=== PATIENT | female | born 1985 | race Caucasian/White ===

== ENCOUNTER → 2017-04-16 10:34 | Outpatient (CLI) | payer MEDICAID, SELFPAY ==
[2017-04-16 09:53] VITALS: BP 139/94; BMI 40.7
[2017-04-16 12:37] LABS: BUN 15 mg/dL (7-18); Creatinine, Serum 0.81 mg/dL (0.55-1.02); Glucose 86 mg/dL (70-110)
[2017-04-16 12:38] LABS: Anion Gap 10 (5-15); BUN/Creat Ratio 18.4 RATIO (10-20); Calcium,Total 9.4 mg/dL (8.5-10.1); Chloride 98 mmol/L (98-107); EST Glomerular Filtration Rate 86 mL/min (>60); Est Glom Filt Rate - Afr Amer 104 mL/min (>60); Potassium 3.7 mmol/L (3.5-5.1); Sodium Level 136 mmol/L (136-145)
== END ==
PROVIDERS: Family Provider Internal Medicine; PCP Internal Medicine; Visit Provider Internal Medicine
DX: I10 Essential (primary) hypertension (principal)
CPT/HCPCS: 36415; 80048

== ENCOUNTER → 2017-10-28 14:50 | Outpatient (CLI) | payer MEDICAID, SELFPAY ==
[2017-10-28 15:38] LABS: Absolute Lymphocyte Count 2.42 X10^3/ul (0.83-4.51); Absolute Neutrophil Count 7.4 X10^3/uL (2.0-7.7); Basophil# 0.02 X10^3/uL; Basophil% 0.2 % (0-1); Eosinophil# 0.06 X10^3/uL; Eosinophils% 0.6 % (0-5); Hematocrit 41.7 % (37-47); Hemoglobin 13.5 g/dl (12.0-15.0); Lymphocyte # 2.42 X10^3/ul (4.0); Lymphocyte % 23.6 % (19-41); Mean Corp Hgb Conc 32.4 g/gl (32-36); Mean Corpuscular Hgb 27.7 pg (27.0-32.0); Mean Corpuscular Volume 85.6 fL (81-99); Mean Platelet Vol. 9.7 fl (6.2-12.0); Monocyte# 0.39 X10^3/uL; Monocyte% 3.8 % (0-10); Neutrophil # 7.36 X10^3/uL (2.7-7.7); Neutrophil % 71.7 % (47-70); Platelet Count 334 K/mm3 (150-450); RBC Distribution Width CV 13.8 % (11.6-14.6); RBC Distribution Width SD 43.2 fl (35.1-43.9); Red Blood Count 4.87 M/mm3 (4.2-5.4); White Blood Count 10.3 K/mm3 (4.4-11.0)
[2017-10-28 15:47] LABS: POSITIVE COUNT NO; POSITIVE DIFFERENTIAL NO; POSITIVE MORPHOLOGY NO
[2017-10-28 16:07] LABS: Anion Gap 9 (5-15); BUN 17 mg/dL (7-18); BUN/Creat Ratio 18.9 RATIO (10-20); Calcium,Total 9.1 mg/dL (8.5-10.1); Chloride 107 mmol/L (98-107); EST Glomerular Filtration Rate 76 mL/min (>60); Est Glom Filt Rate - Afr Amer 92 mL/min (>60); Glucose 87 mg/dL (74-106); Magnesium 2.1 mg/dL (1.6-2.6); Potassium 3.9 mmol/L (3.5-5.1); Sodium Level 141 mmol/L (136-145); T4 Free Direct 1.17 ng/dL (0.76-1.46); Thyroid Stim Hormone (TSH) 1.63 uIU/mL (0.358-3.74)
[2017-10-29 09:30] LABS: Pregnancy, Serum, hCG Quali. NEGATIVE Negative (0-9 Nonpreg)
== END ==
PROVIDERS: Family Provider Internal Medicine; PCP Internal Medicine; Visit Provider Internal Medicine
DX: R68.89 Other general symptoms and signs (principal); N94.6 Dysmenorrhea, unspecified
CPT/HCPCS: 36415; 80048; 83735; 84439; 84443; 84703; 85025

== ENCOUNTER → 2017-12-09 07:59 | Outpatient (CLI) | payer MEDICAID, SELFPAY ==
--- NOTE | 2017-12-09 08:02 | US_ITS ---
STUDY: ULTRASOUND OF THE FEMALE PELVIS - COMPLETE REASON FOR EXAM: Female, 32 years old. Bilateral pelvic pain left greater than right. LMP: December 07, 2017. TECHNIQUE: Transabdominal and Transvaginal TECHNICAL QUALITY: Adequate. COMPARISON: None. FINDINGS: The uterus is anteverted and is in a midline position. The uterus measures 9.0 cm x 5.4 cm x 5.0 cm. There are Nabothian cysts of the cervix. The endometrium measures 5.0 mm in thickness, and is hyperechoic. There is no demonstrated endometrial mass. There is no demonstrated myometrial mass. I.U.D. - The patient does not have an I.U.D. The right ovary is visualized. The right ovary measures 3.2 cm x 3.8 cm x 3.0 cm. There is no right ovarian cyst or ovarian mass. There is no visualized right adnexal mass or complex lesion. There is normal arterial and normal venous vascularity. The left ovary is visualized. The left ovary measures 3.0 cm x 1.8 cm x 1.7 cm. There is no left ovarian cyst or ovarian mass. There is no visualized left adnexal mass or complex lesion. There is normal arterial and normal venous vascularity. There is no fluid in the cul-de-sac. The pre void volume of the bladder was 22 ml. Polycystic ovary disease: No. US/Pelvic (Non ) IMPRESSION: Normal female pelvis. Small nabothian cysts. Electronically Signed: Francisco Javier High MD at 9:45 EDT Tel [phone], Service support ,
--- NOTE | 2017-12-09 08:17 | US_ITS ---
STUDY: ULTRASOUND OF THE FEMALE PELVIS - COMPLETE REASON FOR EXAM: Female, 32 years old. Bilateral pelvic pain left greater than right. LMP: December 07, 2017. TECHNIQUE: Transabdominal and Transvaginal TECHNICAL QUALITY: Adequate. COMPARISON: None. FINDINGS: The uterus is anteverted and is in a midline position. The uterus measures 9.0 cm x 5.4 cm x 5.0 cm. There are Nabothian cysts of the cervix. The endometrium measures 5.0 mm in thickness, and is hyperechoic. There is no demonstrated endometrial mass. There is no demonstrated myometrial mass. I.U.D. - The patient does not have an I.U.D. The right ovary is visualized. The right ovary measures 3.2 cm x 3.8 cm x 3.0 cm. There is no right ovarian cyst or ovarian mass. There is no visualized right adnexal mass or complex lesion. There is normal arterial and normal venous vascularity. The left ovary is visualized. The left ovary measures 3.0 cm x 1.8 cm x 1.7 cm. There is no left ovarian cyst or ovarian mass. There is no visualized left adnexal mass or complex lesion. There is normal arterial and normal venous vascularity. There is no fluid in the cul-de-sac. The pre void volume of the bladder was 22 ml. Polycystic ovary disease: No. US/Transvaginal Non- IMPRESSION: Normal female pelvis. Small nabothian cysts. Electronically Signed: Francisco Javier High MD at 9:45 EDT Tel [phone], Service support ,
== END ==
PROVIDERS: Family Provider Internal Medicine; PCP Internal Medicine; Visit Provider Internal Medicine
DX: R10.2 Pelvic and perineal pain (principal)
CPT/HCPCS: 76830; 76856; 93976

== ENCOUNTER 2018-01-10 14:36 | Emergency (ER) | payer MEDICAID, SELFPAY ==
[2018-01-10 14:37] VITALS: BP 156/120; BP 176/110; PULSE 90; PULSE 92; RESP 16; RESP 18; TEMP 36.6; O2SAT 98; BMI 39.9
--- NOTE | 2018-01-10 15:16 | EKG12_ITS ---
Test Reason : HYPERTENSION Blood Pressure : / mmHG Vent. Rate : 077 BPM Atrial Rate : 077 BPM P-R Int : 158 ms QRS Dur : 080 ms QT Int : 384 ms P-R-T Axes : 037 009 025 degrees QTc Int : 434 ms Normal sinus rhythm Confirmed by JOHN YOUSSEF, BABITA ([id number]), technical editor ORALIA LUI ([id number] on 01/11/2018 9:53:52 AM Referred By: Confirmed By:BABITA LOPEZ MD
--- NOTE | 2018-01-10 15:17 | ED.VISSUMM ---
- ER Visit Summary Date of Service: 01/10/18 Chief Complaint: High blood pressure History of Present Illness: The patient is a 32 F with history of hypertension who presents with complaint of high blood pressure today. Patient was evaluated by her primary care doctor 5 days ago and had her blood pressure medication changed from losartan to amlodipine because she did not like the way she felt on the losartan. Patient has had ongoing hypertension with multiple medication changes since her first . Today she is complaining of jitteriness. She says for the last 2 months she has been having anxiety, such as claustrophobia while in a vehicle. She is concerned for her thyroid function and states it has been checked since that time, but she feels like her thyroid issues are intermittent. She has no diagnosed hypo-or hyperthyroidism. Today she took losartan and hydrochlorothiazide intact of her amlodipine. She has only taken the amlodipine for a couple days. She had a headache yesterday but none today. No chest pain. 2 days ago she had a brief episode of shortness of breath which she describes like wind blowing in her face that resolved when she turns her head. No weakness or paresthesias in the arms or legs other than a brief episode of numbness in the left leg while sitting yesterday that has since resolved. No upper respiratory symptoms, no abdominal pain, nausea vomiting or diarrhea, no urinary symptoms. No neck or back pain. Physical Examination: Vital signs: afebrile, hypertensive at 147/102, no hypoxia on room air General: well nourished, well developed, in no distress Skin: warm, dry, no rash, no pallor HEENT: normocephalic and atraumatic; PERRL, EOMI, moist mucous membranes Cardiovascular: regular rate and rhythm without murmurs, no peripheral edema, 2+ pulses all distal extremities Respiratory: No increased work of breathing, lungs are clear to auscultation bilaterally, no rales, rhonchi or wheezing Abdominal: Abdomen is soft, nontender with normoactive bowel sounds, no guarding or rebound, no masses MSK: Moves all extremities, no deformities, normal strength Neuro: Awake and alert, oriented ?4. No facial droop, sensation and motor function intact and symmetric, normal gait, normal cerebellar testing Test Results: Abnormal Lab Results 10/29/18 10/29/18 10/29/18 15:40 15:40 15:40 WBC 9.9 RBC 4.96 Hgb 14.1 Hct 42.3 MCV 85.3 MCH 28.4 MCHC 33.3 RDW 13.8 RDW Differential 42.3 Plt Count 379 MPV 9.5 Immature Gran % (Auto) 0.300 Neut % (Auto) 65.5 Lymph % (Auto) 27.5 Foard % (Auto) 3.7 Eos % (Auto) 2.7 Baso % (Auto) 0.3 Absolute Neuts (auto) 6.5 Absolute Lymphs (auto) 2.71 Total Counted Not Reportable Sodium 136 Potassium 3.8 Chloride 104 Carbon Dioxide 25.0 Anion Gap 7 BUN 16 Creatinine 0.75 Estim Creat Clear Calc 95.11 Est GFR (MDRD) Af Amer 114 Est GFR (MDRD) Non-Af 95 BUN/Creatinine Ratio 21.4 H Glucose 92 Calcium 9.4 Magnesium 2.1 Troponin I < 0.015 TSH 1.67 Serum , Qual NEGATIVE Medications Given Discontinued Medications Amlodipine Besylate (Norvasc) 5 mg PO X1 ONE Stop: 01/10/18 15:18 Last Admin: 01/10/18 17:12 Dose: 5 mg Emergency Department Course and Treatment: I had a long discussion with the patient about blood pressure management, and her blood pressure today is similar to prior measurements per chart review. I discussed with the patient that she is only been on the amlodipine for a few days, and it is difficult to determine if it is working if she is changing her medications on her own at home. Patient was strongly encouraged to follow her doctor's advice and follow-up with her physician regarding blood pressure management and not to do self modifications of her medications. Because patient has been having intermittent symptoms of anxiety, EKG and lab work was performed, including evaluation for any electrolyte derangements or thyroid dysfunction. Lab work was unremarkable, with normal thyroid function, electrolytes and troponin. patient was given an oral dose of her amlodipine that she is supposed to be on but did not take today. Patient was again counseled on following her doctors instructions for treatment of her blood pressure and not self-medicating at home. Patient was very resistant to all suggestions on her blood pressure control and resistant to suggestions for following up with her doctor about her anxiety symptoms. 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 She was discharged home. Treatment Plan: [] Disposition: [] Impression: Chronic hypertension, poorly controlled hypertension, anxiety This note was generated with [employer] dictation software. It may contain incorrect words, spelling, and punctuation that were not noted in review of the chart prior to signing ED Disposition - Plan for ED Patient: Disposition: Home or Assisted Living Chief Complaint: Hypertension Instructions: ED Stress React, ED Hypertension Conf Out Of Control Prescriptions: RX: Hydroxyzine HCl 25 mg PO Q6H PRN PRN #20 tab PRN Reason: Anxiety Referrals: Douglas Nova MD [Primary Care Provider] - 3-5 Days Additional Instructions: Please follow-up with your doctor for further blood pressure management. Take your blood pressure medications as prescribed and do not adjust them or discontinue them on your own without consulting your doctor first. You may try the hydroxyzine for your jitteriness and anxiety symptoms. Follow-up with your doctor to discuss these symptoms further. If you have any worsening of your condition or any new concerning symptoms, please return immediately to the emergency department for another evaluation.
[2018-01-10 15:50] LABS: Absolute Lymphocyte Count 2.71 X10^3/ul (0.83-4.51); Absolute Neutrophil Count 6.5 X10^3/uL (2.0-7.7); Basophil# 0.03 X10^3/uL; Basophil% 0.3 % (0-1); Eosinophil# 0.27 X10^3/uL; Eosinophils% 2.7 % (0-5); Hematocrit 42.3 % (37-47); Hemoglobin 14.1 g/dl (12.0-15.0); Lymphocyte # 2.71 X10^3/ul (4.0); Lymphocyte % 27.5 % (19-41); Mean Corp Hgb Conc 33.3 g/gl (32-36); Mean Corpuscular Hgb 28.4 pg (27.0-32.0); Mean Corpuscular Volume 85.3 fL (81-99); Mean Platelet Vol. 9.5 fl (6.2-12.0); Monocyte# 0.36 X10^3/uL; Monocyte% 3.7 % (0-10); Neutrophil # 6.46 X10^3/uL (2.7-7.7); Neutrophil % 65.5 % (47-70); POSITIVE COUNT NO; POSITIVE DIFFERENTIAL NO; POSITIVE MORPHOLOGY NO; Platelet Count 379 K/mm3 (150-450); RBC Distribution Width CV 13.8 % (11.6-14.6); RBC Distribution Width SD 42.3 fl (35.1-43.9); Red Blood Count 4.96 M/mm3 (4.2-5.4); White Blood Count 9.9 K/mm3 (4.4-11.0)
[2018-01-10 16:17] LABS: Anion Gap 7 (5-15); BUN 16 mg/dL (7-18); BUN/Creat Ratio 21.4 RATIO (10-20); Calcium,Total 9.4 mg/dL (8.5-10.1); Chloride 104 mmol/L (98-107); Creatinine, Serum 0.75 mg/dL (0.55-1.02); EST Glomerular Filtration Rate 95 mL/min (>60); Est Glom Filt Rate - Afr Amer 114 mL/min (>60); Estimated Creatinine Clearance 95.11 ml/min; Glucose 92 mg/dL (74-106); Magnesium 2.1 mg/dL (1.6-2.6); Potassium 3.8 mmol/L (3.5-5.1); Sodium Level 136 mmol/L (136-145); Thyroid Stim Hormone (TSH) 1.67 uIU/mL (0.358-3.74)
[2018-01-10 17:00] VITALS: BP 139/104; PULSE 81; RESP 18; O2SAT 98
[2018-01-10] MEDS: amLODIPine 5 MG Tablet PO (17:12)
[2018-01-10 17:17] LABS: Pregnancy, Serum, hCG Quali. NEGATIVE Negative (0-9 Nonpreg)
[2018-01-10 17:30] VITALS: BP 139/98
--- NOTE | 2018-01-10 17:31 | DCINST.ED_ITS ---
ED Disposition - Plan for ED Patient: Disposition: Home or Assisted Living Chief Complaint: Hypertension Instructions: ED Hypertension Conf Out Of Control, ED Stress React Prescriptions: Hydroxyzine HCl 25 mg PO Q6H PRN PRN #20 tab PRN Reason: Anxiety Referrals: Douglas Nova MD [Primary Care Provider] - 3-5 Days Additional Instructions: Please follow-up with your doctor for further blood pressure management. Take your blood pressure medications as prescribed and do not adjust them or discontinue them on your own without consulting your doctor first. You may try the hydroxyzine for your jitteriness and anxiety symptoms. Follow- up with your doctor to discuss these symptoms further. If you have any worsening of your condition or any new concerning symptoms, please return immediately to the emergency department for another evaluation.
== END 2018-01-10 17:54 | disposition home or self-care (01) ==
PROVIDERS: Emergency Provider Emergency Medicine; Family Provider Internal Medicine; PCP Internal Medicine
DX: I10 Essential (primary) hypertension (principal); F41.9 Anxiety disorder, unspecified; F40.240 Claustrophobia; Z79.899 Other long term (current) drug therapy
CPT/HCPCS: 80048; 83735; 84443; 84484; 84703; 85025; 93005; 99285; A4216

== ENCOUNTER → 2018-04-08 15:59 | Outpatient (CLI) | payer MEDICAID, SELFPAY ==
[2018-04-05 15:29] VITALS: BMI 40.7
--- NOTE | 2018-04-08 16:01 | ECHOD_ITS ---
Reason For Study: HTN Procedure This was a 2D Doppler, Color Flow transthoracic echocardiogram. Contrast injection was performed. Exam performed in department. Left Ventricle Normal size and thickness. The estimated ejection fraction is 65 %. Normal diastology for age. No regional wall motion abnormalities noted. Right Ventricle Normal size and thickness. Normal systolic function. Atria Normal left atrium. Normal right atrium. Normal atrial septum. Mitral Valve The mitral valve is structurally normal. No prolapse or stenosis seen. Tricuspid Valve Normal tricuspid valve. Trivial tricuspid valve insufficiency. Right ventricular systolic pressure estimated to be 29 mmHg. Aortic Valve Normal aortic valve. Trisinus/trileaflet aortic valve. Pulmonic Valve Normal pulmonic valve. Great Vessels Normal aortic root. Normal arch. Normal inferior vena cava. Inferior vena cava collapse with sniff. Pericardium/Pleural No pericardial effusion. Medication 22 gauge I.V. with prn adaptor inserted into right arm. Diluted definity 4ml given slow IV push to enhance endocardial definition. MMode/2D Measurements & Calculations LVIDd: 4.6 cm IVSd: 0.84 cm Ao root diam: 3.2 cm LVIDs: 3.1 cm LVPWd: 0.93 cm RVDd: 3.1 cm FS: 32.0 % LAV(MOD-bp): 50.7 ml LVAd ap4: 38.3 cm2 SV(MOD-sp4): 82.0 ml LAV(MOD-bp) Indexed: 23.7 ml/m2 EDV(MOD-sp4): 138.3 ml LAV(MOD-sp2): 46.8 ml EDV(sp4-el): 143.0 ml LAV(MOD-sp4): 51.2 ml LVAs ap4: 21.5 cm2 ESV(MOD-sp4): 56.3 ml ESV(sp4-el): 58.6 ml EF(MOD-sp4): 59.3 % EF(sp4-el): 59.1 % SV(sp4-el): 84.5 ml LA A4 area: 18.2 cm2 LA dimension(2D): 3.0 cm RA A4 area: 16.9 cm2 Time Measurements MV dec time: 0.18 sec Doppler Measurements & Calculations MV E max ángel: 98.6 cm/sec Lat Peak E' Ángel: 14.5 cm/sec Med Peak E' Ángel: 11.3 cm/sec MV A max ángel: 73.7 cm/sec E/E' lat: 6.8 E/E' med: 8.7 MV E/A: 1.3 Ao V2 max: 119.8 cm/sec LV V1 max: 114.1 cm/sec PA V2 max: 126.0 cm/sec Ao max P.7 mmHg LV V1 max P.2 mmHg TR max ángel: 244.3 cm/sec TR max P.9 mmHg Interpretation Summary The estimated ejection fraction is 65 %. Normal diastology for age. Trivial tricuspid valve insufficiency. Right ventricular systolic pressure estimated to be 29 mmHg. The study was technically difficult. Contrast injection was performed. There is no comparison study available. Ordering Physician: Mio New Referring Physician: Douglas Nova Performed By: Honey Corbin, MULUGETA, RVT
== END ==
PROVIDERS: Family Provider Internal Medicine; PCP Internal Medicine; Referring Provider Internal Medicine Cardiovascular Disease; Visit Provider Internal Medicine Cardiovascular Disease
DX: I10 Essential (primary) hypertension (principal)
CPT/HCPCS: 93306; Q9957; A4216

== ENCOUNTER 2018-06-03 17:18 | Emergency (ER) | payer MEDICAID, SELFPAY ==
[2018-05-18 14:59] VITALS: BMI 40.7
[2018-06-03 17:19] VITALS: BP 161/106; PULSE 86; RESP 18; TEMP 36.8; O2SAT 99; BMI 40.9
--- NOTE | 2018-06-03 17:43 | ED.VIS.GEN ---
History of Present Illness Chief Complaint: Dizziness Detail of Chief Complaint: Numerous complaints read narrative Informant: Patient Onset: Weeks Context: Sudden Onset Timing: Intermittent - Maximum duration 30 seconds Quality: Vertigo, balance soft, spinning, drunk sensation Location: Multiple Current Severity: - - Absent Maximum Severity: Severe Worsened by: Nothing Relieved by: Nothing Associated Symptoms: Nausea and blurred vision Narrative: Patient is a 32-year-old woman who was diagnosed with an ear infection on antibiotics. She also was placed on antihypertensive medication. She states she is compliant with her medication. She reports intermittent vertigo that lasts less than 30 seconds. Not able to state with any certainty whether it is positional. She denies trouble with speech or swallowing. She denies paresthesia, anesthesia motors on less she rests her left elbow in a certain way that causes numbness in the ulnar nerve distribution. She denies vomiting or diarrhea. She denies urologic symptoms. She states she has trouble with walking. She specifically denied double vision. Prior similar symptoms: Yes Recent Illness/Hospitalization: Yes - Ear infection - Past Medical History (1) Anxiety Status: Acute (2) Hypertension Status: Chronic (3) Obesity (BMI 30-39.9) Status: Chronic Past Medical History - Allergies and Home Meds Allergies/Adverse Reactions: Allergies Penicillins Allergy (Unknown, Verified 06/03/18 17:22) Unknown Primary Care Physician: Baylee Head MD [Primary Care Provider] - Prior records reviewed: Yes Surgical History: noncontributory Lives: Spouse/ Significant Other Smoking Status: Never smoker Alcohol: None Review of Systems General: Denies: Chills, Fever, Sweats, Weight loss Eyes: Reports: Blurred Vision - bilaterally. Denies: Visual changes - bilaterally, Diplopia ENT: Denies: Bilateral ear pain, Rhinorrhea, Sore throat Cardiovascular: Reports: Chest pain - is intermittent burning sensation with no associated precipitating, alleviating or aggravating factors.. Denies: Palpitations Respiratory: Denies: Dyspnea, Cough, Dyspnea on exertion Gastrointestinal: Denies: Abdominal pain, Nausea, Vomiting, Diarrhea, Melena, Hematochezia Genitourinary: Denies: Dysuria, Hematuria, Frequency Musculoskeletal: Reports: Myalgias, Neck pain - Intermittent neck pain. Denies: Back pain, Extremity Pain Skin: Denies: Rash, Wounds Neurological: Reports: Headache - Intermittent over the past couple of weeks. Denies: Weakness, Numbness Hematologic: Denies: Easy bruising, Easy bleeding Allergy: Denies: Uticaria, Swelling of the mouth Physical Exam Vital Signs/Narrative: Vital Signs Temp Pulse Resp BP Pulse Ox 06/03/18 17:19 98.3 F 86 18 161/106 H 99 Inital Vital Signs reviewed: Yes General: Well nourished, Well developed, Obese, Unkempt - Is, No Acute Distress Head: Normocephalic - to be documented as right now we know, Atraumatic Eyes: Perrl - a sure, EOMI. Negative for: Pale conjunctiva, Scleral icterus ENT: Moist mucous membranes, No rhinorrhea, TM's clear - This MRI was never consulted you Neck: Supple, Nontender, No lymphadenopathy, No JVD Cardiovascular: Regular rate, Regular rhythm, No murmurs, Normal S1, Normal S2 Respiratory: No distress, CTA bilaterally, Chest nontender Abdomen: Soft, Nontender, Nondistended, Normal bowel sounds Back: Nontender, Normal Inspection. Negative for: CVA tenderness, Spinal tenderness Extremities: Nontender, No edema Skin: Normal color, No rash. Negative for: Cyanosis, Jaundice Neurological: Alert, Oriented x3, Cranial nerves II-XII grossly intact, Normal Strength, Normal Sensation, Normal DTR, Normal Gait - Able to walk with one foot in front of the other. Gait was normal. Able to walk on heels and toes., - - Romberg test was performed without abnormality with eyes open and closed.The Champlain-Hallpike maneuver was negative. The eye askew test was negative. The hint test was negative. Psychological: Normal affect, Normal Mood Diagnostic/Tx/Re-eval Laboratory Results 06/03/18 06/03/18 17:50 17:50 WBC 11.5 H RBC 4.67 Hgb 13.1 Hct 40.0 MCV 85.7 MCH 28.1 MCHC 32.8 RDW 14.5 RDW Differential 44.4 H Plt Count 357 MPV 9.3 Sodium 137 Potassium 4.0 Chloride 105 Carbon Dioxide 27.0 Anion Gap 5 BUN 14 Creatinine 0.94 Estim Creat Clear Calc 75.88 Est GFR (MDRD) Af Amer 87 Est GFR (MDRD) Non-Af 72 BUN/Creatinine Ratio 14.9 Glucose 91 Calcium 8.7 White count is slightly elevated which is nonspecific. - Medical Decision Making Patient's history is suggestive of paroxysmal benign positional vertigo. She was placed on meclizine. Meclizine is not considered treatment of choice. Because of her other vague symptoms a CBC and BMP were obtained. Presently there is no evidence of ear infection. Treat paroxysmal benign positional vertigo. If she has recurrent symptoms may attempt Dorinda maneuver. ED Disposition - Plan for ED Patient: Disposition: Home or Assisted Living Diagnosis: Benign paroxysmal positional vertigo Instructions: ED BPV Vertigo Referrals: Baylee Head MD [Primary Care Provider] - As Needed Additional Instructions: Recommend discontinuing Antivert/meclizine since this is not considered drug of choice to treat positional vertigo. This may prolong the latency of the disorder.
[2018-06-03 18:03] LABS: Hemoglobin 13.1 g/dl (12.0-15.0); Mean Corp Hgb Conc 32.8 g/gl (32-36); Mean Corpuscular Hgb 28.1 pg (27.0-32.0); Mean Corpuscular Volume 85.7 fL (81-99); Mean Platelet Vol. 9.3 fl (6.2-12.0); Platelet Count 357 K/mm3 (150-450); RBC Distribution Width CV 14.5 % (11.6-14.6); RBC Distribution Width SD 44.4 fl (35.1-43.9); Red Blood Count 4.67 M/mm3 (4.2-5.4); White Blood Count 11.5 K/mm3 (4.4-11.0)
[2018-06-03 18:04] LABS: Scan Indicated on CBC? Y/N NO
[2018-06-03 18:15] LABS: Anion Gap 5 (5-15); BUN 14 mg/dL (7-18); BUN/Creat Ratio 14.9 RATIO (10-20); Calcium,Total 8.7 mg/dL (8.5-10.1); Chloride 105 mmol/L (98-107); Creatinine, Serum 0.94 mg/dL (0.55-1.02); EST Glomerular Filtration Rate 72 mL/min (>60); Est Glom Filt Rate - Afr Amer 87 mL/min (>60); Estimated Creatinine Clearance 75.88 ml/min; Glucose 91 mg/dL (74-106); Sodium Level 137 mmol/L (136-145)
== END 2018-06-03 19:05 | disposition home or self-care (01) ==
PROVIDERS: Emergency Provider Emergency Medicine; Family Provider Family Medicine; PCP Family Medicine
DX: H81.10 Benign paroxysmal vertigo, unspecified ear (principal); R07.9 Chest pain, unspecified; M54.2 Cervicalgia; E66.9 Obesity, unspecified; Z79.899 Other long term (current) drug therapy
CPT/HCPCS: 80048; 85027; 99282

== ENCOUNTER → 2018-07-19 15:48 | Outpatient (CLI) | payer MEDICAID, SELFPAY ==
--- NOTE | 2018-07-19 15:50 | CT_ITS ---
STUDY: CT MAXILLOFACIAL SINUSES REASON FOR EXAM: Female, 32 years old. Sinusitis. RADIATION DOSAGE (If Supplied By Facility): CTDIvol = ( 33.06 ) mGy, DLP = ( 796.66 ) mGycm TECHNIQUE: The patient was scanned in a multi detector CT scanner. High resolution axial imaging was performed without the administration of intravenous contrast material. Sagittal and coronal images were reconstructed. Individualized dose optimization techniques were used for this CT. COMPARISON: None. FINDINGS: FRONTAL SINUSES: Minimal mucoperiosteal thickening in the lateral recess of the right frontal sinus. Normal aeration of the left frontal sinus, without mucosal inflammatory disease. ETHMOIDAL SINUSES: Mild mucoperiosteal thickening in the mid right ethmoid sinus and, to a lesser degree, in an anterior left ethmoid air cell. MAXILLARY SINUSES: Moderate mucoperiosteal thickening of the right maxillary sinus. The left maxillary sinus shows only minimal fluid or mucoperiosteal thickening inferiorly. SPHENOIDAL SINUSES: Very minimal posterior medial periosteal thickening. There is patency of the left maxillary infundibulum with normal uncinate processes, ethmoid bullae, and hiatus semilunaris. The right maxillary infundibulum is occluded, while the uncinate process and hiatus semilunaris are unremarkable. There are regan bullosa of the bilateral turbinates. Normal bilateral inferior turbinates. There is slight rightward deviation of the nasal bones and anterior nasal septum. There is patency of the bilateral nasal airways. The visualized osseous structures are normal. The visualized bilateral orbital contents are normal. Borderline fullness of the posterior nasopharyngeal soft tissues and posterior base of the tongue, which may reflect mild lymphoid hypertrophy in those regions. There are upper normal-sized borderline enlarged bilateral level II cervical lymph nodes, likely reactive CT/Sinus/Facial Bone IMPRESSION: 1. Mild chronic paranasal sinusitis, as described, most prominent in the right maxillary antrum. 2. Mild reactive nasopharyngeal and upper cervical lymphoid hyperplasia, as noted. Electronically Signed: Roshan Lopez MD at 17:04 EDT , Service support ,
== END ==
PROVIDERS: Family Provider Family Medicine; PCP Family Medicine; Referring Provider Otolaryngology; Visit Provider Otolaryngology
DX: J32.2 Chronic ethmoidal sinusitis (principal)
CPT/HCPCS: 70486

== ENCOUNTER → 2018-07-26 13:14 | Outpatient (CLI) | payer MEDICAID, SELFPAY ==
[2018-07-26 15:39] LABS: ALB/GLOB Ratio 0.9 RATIO (0.9-2.4); AST(SGOT) 10 U/L (15-37); Alanine Aminotransfer ALT/SGPT 21 U/L (13-56); Albumin, Serum 3.9 g/dL (3.2-5.0); Alkaline Phosphatase 63 U/L (45-117); Anion Gap 7 (5-15); BUN 17 mg/dL (7-18); BUN/Creat Ratio 20.1 RATIO (10-20); Calcium,Total 9.2 mg/dL (8.5-10.1); Chloride 103 mmol/L (98-107); Creatinine, Serum 0.85 mg/dL (0.55-1.02); EST Glomerular Filtration Rate 81 mL/min (>60); Est Glom Filt Rate - Afr Amer 98 mL/min (>60); Globulin 4.3 g/dL (2.2-4.2); Glucose 95 mg/dL (74-106); Potassium 4.3 mmol/L (3.5-5.1); Protein, Total 8.2 g/dL (6.4-8.2); Sodium Level 136 mmol/L (136-145); Thyroid Stim Hormone (TSH) 1.29 uIU/mL (0.358-3.74)
== END ==
PROVIDERS: Family Provider Family Medicine; PCP Family Medicine; Visit Provider Family Medicine
DX: I10 Essential (primary) hypertension (principal)
CPT/HCPCS: 36415; 80053; 84443

== ENCOUNTER → 2018-11-01 12:30 | Outpatient (CLI) | payer MEDICAID, SELFPAY ==
[2018-09-08 09:24] VITALS: BMI 41.8
[2018-11-01 14:05] LABS: Cholesterol 154 mg/dL (200); High Density Lipoprotein 44 mg/dL; Triglycerides 114 mg/dL; Very Low Density Lipoprotein 23 mg/dL (5-40)
[2018-11-01 14:12] LABS: Vitamin D,25 Hydroxy 22.9 ng/mL (29.95-100.01)
== END ==
PROVIDERS: Family Provider Family Medicine; PCP Family Medicine; Referring Provider Family Medicine; Visit Provider Family Medicine
DX: I10 Essential (primary) hypertension (principal); F41.9 Anxiety disorder, unspecified; R53.83 Other fatigue
CPT/HCPCS: 36415; 80061; 82306

== ENCOUNTER → 2018-11-09 08:59 | Outpatient (CLI) | payer MEDICAID, SELFPAY ==
[2018-09-08 09:24] VITALS: BMI 41.8
[2018-11-09 10:09] LABS: Magnesium 2.1 mg/dL (1.6-2.6)
== END ==
PROVIDERS: Family Provider Family Medicine; PCP Family Medicine; Referring Provider Family Medicine; Visit Provider Family Medicine
DX: I10 Essential (primary) hypertension (principal)
CPT/HCPCS: 36415; 83735

== ENCOUNTER 2018-12-30 10:51 | Outpatient (RCR) | payer MEDICAID, SELFPAY ==
[2018-09-08 09:24] VITALS: BMI 41.8
== END 2019-01-12 23:59 ==
LOC: NS 10:51
PROVIDERS: Family Provider Family Medicine; PCP Family Medicine; Visit Provider Family Medicine
DX: Z71.3 Dietary counseling and surveillance (principal); E66.9 Obesity, unspecified; Z68.41 Body mass index [BMI] 40.0-44.9, adult
CPT/HCPCS: 97802

== ENCOUNTER 2019-01-16 11:19 | Outpatient (RCR) | payer MEDICAID, SELFPAY ==
[2018-09-08 09:24] VITALS: BMI 41.8
== END 2019-01-16 23:59 | disposition home or self-care (01) ==
LOC: NS 11:19
PROVIDERS: Family Provider Family Medicine; PCP Family Medicine; Visit Provider Family Medicine
DX: Z71.3 Dietary counseling and surveillance (principal); E66.9 Obesity, unspecified; Z68.41 Body mass index [BMI] 40.0-44.9, adult
CPT/HCPCS: 97803

== ENCOUNTER → 2019-03-30 11:17 | Outpatient (CLI) | payer MEDICAID, SELFPAY ==
[2018-09-08 09:24] VITALS: BMI 41.8
[2019-03-30 15:49] LABS: Glucose 99 mg/dL (74-106)
== END ==
PROVIDERS: Family Provider Family Medicine; PCP Family Medicine; Referring Provider Family Medicine; Visit Provider Family Medicine
DX: R53.83 Other fatigue (principal)
CPT/HCPCS: 36415; 82947

== ENCOUNTER → 2019-04-18 12:58 | Outpatient (CLI) | payer MEDICAID, SELFPAY ==
[2018-09-08 09:24] VITALS: BMI 41.8
[2019-04-18 15:30] LABS: Absolute Lymphocyte Count 2.18 X10^3/uL (0.83-4.51); Absolute Neutrophil Count 4.9 X10^3/uL (2.0-7.7); Basophil# 0.03 X10^3/uL; Basophil% 0.4 % (0-1); Eosinophil# 0.19 X10^3/uL; Eosinophils% 2.5 % (0-5); Hematocrit 41.6 % (37-47); Hemoglobin 13.4 g/dL (12.0-15.0); Lymphocyte # 2.18 X10^3/ul (4.0); Lymphocyte % 28.5 % (19-41); Mean Corp Hgb Conc 32.2 g/dL (32-36); Mean Corpuscular Hgb 28.2 pg (27.0-32.0); Mean Corpuscular Volume 87.4 fL (81-99); Mean Platelet Vol. 9.3 fl (6.2-12.0); Monocyte# 0.35 X10^3/uL; Monocyte% 4.6 % (0-10); NRBC Flagged by Analyzer 0 % (0-5); Neutrophil # 4.88 X10^3/uL (2.7-7.7); Neutrophil % 63.7 % (47-70); Platelet Count 353 K/mm3 (150-450); RBC Distribution Width CV 13.2 % (11.6-14.6); RBC Distribution Width SD 42.4 fl (35.1-43.9); Red Blood Count 4.76 M/mm3 (4.2-5.4); White Blood Count 7.7 K/mm3 (4.4-11.0)
[2019-04-18 15:42] LABS: Anion Gap 6 (5-15); BUN 13 mg/dL (7-18); BUN/Creat Ratio 14.7 RATIO (10-20); Calcium,Total 9.7 mg/dL (8.5-10.1); Chloride 104 mmol/L (98-107); Creatinine, Serum 0.88 mg/dL (0.55-1.02); EST Glomerular Filtration Rate 77 mL/min (>60); Est Glom Filt Rate - Afr Amer 93 mL/min (>60); Glucose 90 mg/dL (74-106); Potassium 4.4 mmol/L (3.5-5.1); Sodium Level 136 mmol/L (136-145)
[2019-04-18 15:49] LABS: Vitamin D,25 Hydroxy 34.5 ng/mL (29.95-100.01)
== END ==
PROVIDERS: PCP Family Medicine; Visit Provider Family Medicine
DX: I10 Essential (primary) hypertension (principal); G43.909 Migraine, unspecified, not intractable, without status migrainosus; E55.9 Vitamin D deficiency, unspecified
CPT/HCPCS: 36415; 80048; 82306; 85025

== ENCOUNTER → 2019-05-01 12:47 | Outpatient (CLI) | payer MEDICAID, SELFPAY ==
[2018-09-08 09:24] VITALS: BMI 41.8
--- NOTE | 2019-05-01 12:50 | ECHOCS_ITS ---
Reason For Study: Palpitations Procedure This was a 2D Doppler, Color Flow transthoracic echocardiogram. Technically difficult study due to patient body habitus. The study was technically difficult. Contrast injection was performed. Exam performed in department. Left Ventricle Normal LV size. Left ventricular systolic function is normal. The estimated ejection fraction is 65 %. No evidence for diastolic dysfunction. No regional wall motion abnormalities noted. Right Ventricle Normal RV size. Normal systolic function. Atria Normal left atrium. Normal right atrium. No doppler evidence for ASD. Mitral Valve There is no mitral annular calcification. Normal mitral valve. Trivial mitral valve insufficiency. Tricuspid Valve Normal tricuspid valve. Trivial tricuspid valve insufficiency. Right ventricular systolic pressure estimated to be 17 mmHg. Aortic Valve Trisinus/trileaflet aortic valve. Normal aortic valve. Pulmonic Valve The pulmonic valve is not well visualized. Great Vessels Normal sized aortic root. Pericardium/Pleural No pericardial effusion. Medication 22 gauge I.V. with prn adaptor inserted into right arm. Diluted definity 2ml given slow IV push to enhance endocardial definition. MMode/2D Measurements & Calculations LVIDd: 4.8 cm IVSd: 0.94 cm Ao root diam: 3.1 cm LVIDs: 2.7 cm LVPWd: 1.1 cm LA dimension: 3.4 cm FS: 44.1 % LAV(MOD-bp): 35.6 ml LA A4 area: 15.3 cm2 RA A4 area: 11.9 cm2 LAV(MOD-bp) Indexed: 16.4 ml/m2 LAV(MOD-sp2): 31.1 ml LAV(MOD-sp4): 39.3 ml Time Measurements MV dec time: 0.20 sec Doppler Measurements & Calculations MV E max ángel: 98.4 cm/sec Lat Peak E' Ángel: 11.4 cm/sec Med Peak E' Ángel: 16.9 cm/sec MV A max ángel: 83.4 cm/sec E/E' lat: 8.6 E/E' med: 5.8 MV E/A: 1.2 MV V2 max: 106.9 cm/sec MV P1/2t max ángel: 106.9 cm/sec Ao V2 max: 136.1 cm/sec MV max P.6 mmHg MV P1/2t: 81.4 msec Ao max P.4 mmHg MV V2 mean: 58.1 cm/sec MV dec slope: 384.8 cm/sec2 Ao V2 mean: 85.3 cm/sec MV mean P.6 mmHg Ao mean P.5 mmHg MV V2 VTI: 22.8 cm MVA(P1/2t): 2.7 cm2 Ao V2 VTI: 24.3 cm LV V1 max: 105.1 cm/sec PA V2 max: 116.5 cm/sec TR max ángel: 185.8 cm/sec LV V1 max P.4 mmHg TR max P.8 mmHg LV V1 mean P.2 mmHg LV V1 mean: 68.2 cm/sec LV V1 VTI: 21.1 cm Interpretation Summary The study was technically difficult. Contrast injection was performed. Left ventricular systolic function is normal. The estimated ejection fraction is 65 %. Trivial mitral valve insufficiency. Trivial tricuspid valve insufficiency. Right ventricular systolic pressure estimated to be 17 mmHg. No evidence for diastolic dysfunction. Ordering Physician: Baylee Head Referring Physician: Baylee Head Performed By: Aric Long RCS
== END ==
PROVIDERS: PCP Family Medicine; Referring Provider Family Medicine; Visit Provider Family Medicine
DX: R00.2 Palpitations (principal)
CPT/HCPCS: 93225; 93226; 93306; Q9957; A4216; C8929

== ENCOUNTER 2019-08-15 11:37 | Emergency (ER) | payer MEDICAID, SELFPAY ==
[2018-09-08 09:24] VITALS: BMI 41.8
[2019-08-15 11:38] VITALS: BP 170/104; PULSE 82; RESP 18; TEMP 36.8; O2SAT 100; BMI 44.9
--- NOTE | 2019-08-15 11:51 | EKG12_ITS ---
Test Reason : CP Blood Pressure : / mmHG Vent. Rate : 074 BPM Atrial Rate : 074 BPM P-R Int : 168 ms QRS Dur : 078 ms QT Int : 392 ms P-R-T Axes : 039 016 029 degrees QTc Int : 435 ms Normal sinus rhythm Normal ECG Confirmed by JOHN YOUSSEF, BABITA ([id number]), index editor ORALIA LUI ([id number] on 08/17/2019 10:41:37 AM Referred By: TIANA Confirmed By:BABITA LOPEZ MD
--- NOTE | 2019-08-15 11:56 | ED.VIS.GEN ---
History of Present Illness Chief Complaint: Chest Pain Informant: Patient Onset: Days Context: Gradual Onset Timing: Intermittent Current Severity: Moderate Maximum Severity: Moderate Narrative: The patient is a 33-year-old female with medical history significant for hypertension who is on verapamil that presents to the emergency department with intermittent right-sided chest pain. Patient states she is been having it for the past 10 days. She states from time to time, she will get a tightness just inside of her right breast. It is nonradiating. It is not made worse with exertion or eating. She is pain came back today. She denies any fevers or chills. She has no history of coronary vascular disease. She denies any history of pulmonary embolus, leg edema, orthopnea. Prior similar symptoms: Yes Recent Illness/Hospitalization: No Past Medical History - Allergies and Home Meds Allergies/Adverse Reactions: Allergies Penicillins Allergy (Unknown, Verified 08/15/19 11:42) Unknown carvedilol [From Coreg] Adverse Reaction (Intermediate, Verified 08/15/19 11:42) Palpitations, tachycardia Primary Care Physician: Baylee Head MD [Primary Care Provider] - Prior records reviewed: Yes Past Medical History: - - Hypertension Surgical History: noncontributory Smoking Status: Never smoker Review of Systems General: Denies: Chills, Fever, Sweats Eyes: Denies: Visual changes - bilaterally, Diplopia ENT: Denies: Rhinorrhea, Sore throat Cardiovascular: Reports: Chest pain. Denies: Palpitations Respiratory: Reports: Dyspnea. Denies: Cough, Dyspnea on exertion Gastrointestinal: Reports: Nausea. Denies: Abdominal pain, Vomiting, Diarrhea, Melena, Hematochezia Genitourinary: Denies: Dysuria, Hematuria, Frequency Musculoskeletal: Denies: Back pain, Extremity Pain Skin: Denies: Rash, Wounds Neurological: Denies: Headache, Weakness, Numbness Physical Exam Vital Signs/Narrative: Vital Signs Temp Pulse Resp BP Pulse Ox 08/15/19 11:38 98.2 F 82 18 170/104 H 100 Inital Vital Signs reviewed: Yes General: Well nourished, Well developed, No Acute Distress Head: Normocephalic, Atraumatic Eyes: Perrl, EOMI ENT: Moist mucous membranes, No rhinorrhea Neck: Supple, Nontender Cardiovascular: Regular rate, Regular rhythm, No murmurs Respiratory: No distress, CTA bilaterally, Chest nontender Abdomen: Soft, Nontender, Nondistended, Normal bowel sounds Back: Nontender, Normal Inspection Extremities: Nontender, No edema Skin: Normal color, No rash Neurological: Alert, Oriented x3, Cranial nerves II-XII grossly intact, Normal Strength, Normal Sensation Psychological: Normal affect, Normal Mood Diagnostic/Tx/Re-eval Clinical Impression(s) from Imaging Studies Chest X-Ray 08/15/19 12:20 IMPRESSION: Normal x-ray examination of the chest. Electronically Signed: Francisco Javier High, at 12:38 EDT , Service support , Abnormal Lab Results 08/15/19 08/15/19 08/15/19 12:10 12:10 12:10 WBC 7.8 RBC 4.60 Hgb 13.1 Hct 40.6 MCV 88.3 MCH 28.5 MCHC 32.3 RDW Std Deviation 42.1 RDW Coeff of Frandy 13.0 Plt Count 324 MPV 9.2 Immature Gran % (Auto) 0.400 Neut % (Auto) 63.6 Lymph % (Auto) 28.1 Crawford % (Auto) 5.8 Eos % (Auto) 1.8 Baso % (Auto) 0.3 Absolute Neuts (auto) 5.0 Absolute Lymphs (auto) 2.19 Nucleated RBC % 0 D-Dimer Quant (PE/DVT) 0.35 Sodium 138 Potassium 3.9 Chloride 104 Carbon Dioxide 24.0 Anion Gap 10 BUN 16 Creatinine 0.81 Estim Creat Clear Calc 87.23 Est GFR (MDRD) Af Amer 104 Est GFR (MDRD) Non-Af 86 BUN/Creatinine Ratio 19.9 Glucose 100 Calcium 9.8 Total Bilirubin 0.30 AST 13 L ALT 28 Alkaline Phosphatase 61 Troponin I < 0.015 Total Protein 7.8 Albumin 3.6 Globulin 4.2 Albumin/Globulin Ratio 0.9 Lipase 90 - Rhythm Strip Rhythm Strip: Sinus Rhythm Rate: 80 Ectopy: None - EKG Initial EKG Interpretation: Sinus Rhythm, No Acute Injury Pattern Prior: Unchanged - Medical Decision Making The patient presents with intermittent right-sided chest pain near the junction of her medial breast and chest wall. She states sometimes it hurts to bend or twist. She denies any nausea vomiting. She states sometimes, she will feel dyspneic. Broad metabolic work-up was pursued. EKG demonstrates sinus rhythm without acute ischemia. The patient denies any tearing type pain. She has no history of aortic dissection or family history. I also obtained a d-dimer given pleuritic component. This was negative. Cardiac enzymes, liver function, lipase were all unremarkable. On reevaluation, the patient is resting comfortably. At this point, I do not suspect a dangerous cause of her pain and does seem entirely reproducible on examination. I will treat her with anti-inflammatories. She will be discharged home. Impression 1. Atypical chest pain ED Disposition - Plan for ED Patient: Instructions: ED Chest Pain Atypical Unkn Cause Prescriptions: Naproxen [Naprosyn] 500 mg PO BID PRN #20 tab Prescription Printed Referrals: Baylee Head MD [Primary Care Provider] -
[2019-08-15] MEDS: Ketorolac 15 MG/ML Vial IV (12:04)
[2019-08-15] MEDS: 0.9% Normal Saline 1,000 ML 1000 ML IV (12:04)
[2019-08-15 12:18] LABS: Absolute Lymphocyte Count 2.19 X10^3/uL (0.83-4.51); Basophil# 0.02 X10^3/uL; Basophil% 0.3 % (0-1); Eosinophil# 0.14 X10^3/uL; Eosinophils% 1.8 % (0-5); Hematocrit 40.6 % (37-47); Hemoglobin 13.1 g/dL (12.0-15.0); Lymphocyte # 2.19 X10^3/ul (4.0); Lymphocyte % 28.1 % (19-41); Mean Corp Hgb Conc 32.3 g/dL (32-36); Mean Corpuscular Hgb 28.5 pg (27.0-32.0); Mean Corpuscular Volume 88.3 fL (81-99); Mean Platelet Vol. 9.2 fl (6.2-12.0); Monocyte# 0.45 X10^3/uL; Monocyte% 5.8 % (0-10); NRBC Flagged by Analyzer 0 % (0-5); Neutrophil # 4.96 X10^3/uL (2.7-7.7); Neutrophil % 63.6 % (47-70); Platelet Count 324 K/mm3 (150-450); RBC Distribution Width SD 42.1 fl (35.1-43.9); White Blood Count 7.8 K/mm3 (4.4-11.0)
--- NOTE | 2019-08-15 12:20 | RAD_ITS ---
STUDY: X-RAY CHEST REASON FOR EXAM: Female, 33 years old. SOB, chest pain, RUQ pain TECHNIQUE: Single AP portable view of the chest. COMPARISON: None. FINDINGS: EKG electrodes are seen. The lungs are clear and expanded. Scattered calcified granulomas. There is no demonstrated pleural abnormality. Normal size heart. Normal mediastinum and lubna. Normal visualized pulmonary arteries. Normal visualized aortic arch and descending thoracic aorta. Normal visualized thoracic spine. Normal visualized ribs, clavicles, and shoulders. There is no demonstrated abnormality of the visualized soft tissue structures of the upper abdomen. RAD/Chest 1 View (Portable) IMPRESSION: Normal x-ray examination of the chest. Electronically Signed: Francisco Javier High, at 12:38 EDT , Service support ,
[2019-08-15 12:30] LABS: D-Dimer Quantitative (DVT/PE) 0.35 FEU/ug/m (0.27-0.49)
[2019-08-15 12:35] LABS: ALB/GLOB Ratio 0.9 RATIO (0.9-2.4); AST(SGOT) 13 U/L (15-37); Alanine Aminotransfer ALT/SGPT 28 U/L (13-56); Albumin, Serum 3.6 g/dL (3.2-5.0); Alkaline Phosphatase 61 U/L (45-117); Anion Gap 10 (5-15); BUN 16 mg/dL (7-18); BUN/Creat Ratio 19.9 RATIO (10-20); Calcium,Total 9.8 mg/dL (8.5-10.1); Chloride 104 mmol/L (98-107); Creatinine, Serum 0.81 mg/dL (0.55-1.02); EST Glomerular Filtration Rate 86 mL/min (>60); Est Glom Filt Rate - Afr Amer 104 mL/min (>60); Estimated Creatinine Clearance 87.23 ml/min; Globulin 4.2 g/dL (2.2-4.2); Glucose 100 mg/dL (74-106); Lipase 90 U/L (73-393); Potassium 3.9 mmol/L (3.5-5.1); Protein, Total 7.8 g/dL (6.4-8.2); Sodium Level 138 mmol/L (136-145)
[2019-08-15 13:05] VITALS: BP 170/96; PULSE 66; RESP 17; O2SAT 100
== END 2019-08-15 13:07 | disposition home or self-care (01) ==
LOC: ED 12:59
PROVIDERS: Emergency Provider Emergency Medicine; PCP Family Medicine
DX: R07.89 Other chest pain (principal); I10 Essential (primary) hypertension; Z79.899 Other long term (current) drug therapy; Z88.0 Allergy status to penicillin
CPT/HCPCS: 71045; 80053; 83690; 84484; 85025; 85379; 93005; 96361; 96374; 99284; J7030; A4216

== ENCOUNTER 2019-09-13 19:15 | Emergency (ER) | payer MEDICAID, SELFPAY ==
[2019-09-13 19:17] VITALS: BP 185/118; PULSE 88; RESP 16; TEMP 36.8; O2SAT 99; BMI 43.2
--- NOTE | 2019-09-13 19:41 | EKG12_ITS ---
Test Reason : SOB Blood Pressure : / mmHG Vent. Rate : 081 BPM Atrial Rate : 081 BPM P-R Int : 152 ms QRS Dur : 076 ms QT Int : 382 ms P-R-T Axes : 058 016 035 degrees QTc Int : 443 ms Normal sinus rhythm Normal ECG Confirmed by MADYSON TAVARES ([id number]), supervising editor trailer DEBI HERNANDEZ ([id number]) on 09/18/2019 2:07:14 PM Referred By: MAAME Confirmed By:MADYSON TAVARES
--- NOTE | 2019-09-13 19:41 | ED.VIS.GEN ---
History of Present Illness Chief Complaint: Shortness of Breath Informant: Patient Onset: Weeks - 3 Timing: Continuous, Waxes and wanes Current Severity: Mild Narrative: 33-year-old female with history of hypertension and migraines presents with shortness of breath and chest pressure which has been ongoing for 3 weeks. It has been constant but waxes and wanes in severity. She feels like she is short of breath but does not have a cough, fever. Does admit to chills. He has no sick contacts. She has no cardiac history. She has no history of DVT/PE or risk factors. She is concerned it may be a reaction to her hypertension medication. Past Medical History - Allergies and Home Meds Allergies/Adverse Reactions: Allergies Penicillins Allergy (Unknown, Verified 09/13/19 19:20) Unknown carvedilol [From Coreg] Adverse Reaction (Intermediate, Verified 09/13/19 19:20) Palpitations, tachycardia Primary Care Physician: Baylee Head MD [Primary Care Provider] - Prior records reviewed: Yes Surgical History: noncontributory Lives: Spouse/ Significant Other Smoking Status: Never smoker Alcohol: None Drugs: None Review of Systems General: Reports: Chills. Denies: Fever, Malaise Cardiovascular: Reports: Chest pain. Denies: Palpitations, Heart racing Respiratory: Reports: Dyspnea. Denies: Cough, Sputum Gastrointestinal: Denies: Abdominal pain, Nausea Genitourinary: Denies: Dysuria Musculoskeletal: Denies: Myalgias, Arthralgias Skin: Denies: Rash Neurological: Denies: Headache Psych: Denies: Depression, Anxiety Physical Exam Vital Signs/Narrative: Vital Signs Temp Pulse Resp BP Pulse Ox 09/13/19 19:17 98.3 F 88 16 185/118 H 99 Inital Vital Signs reviewed: Yes General: Well nourished, Well developed Head: Normocephalic, Atraumatic Eyes: Perrl, EOMI ENT: Moist mucous membranes Cardiovascular: Regular rate, Regular rhythm, No murmurs Respiratory: No distress, CTA bilaterally, Chest nontender Abdomen: Soft, Nontender Back: Nontender Extremities: Nontender, No edema, Calf Tenderness Skin: Normal color Neurological: Alert, Oriented x3 Diagnostic/Tx/Re-eval Chest X-Ray - ED: 1 View, Unchanged, Cardiomegaly - Rhythm Strip Rhythm Strip: Sinus Rhythm Rate: 81 - Unchanged from previous Ectopy: None - Medical Decision Making Patient presents with shortness of breath and chest pressure which she has been having for 3 weeks. She states she has chills but she has no cough, fever. She think she is having a medication side effect. Patient is PERC negative EKG is sinus rhythm without signs of ischemia. Chest x-ray is normal. Lab work is normal. Troponin negative. Discussed with patient that this may be a medication side effect. I do not believe she has COVID?19 however she did she be at the end of the course of symptoms. Patient has had constant discomfort like this for 3 weeks I do not believe she has a cardiac etiology. I will have her follow-up with her PCP to adjust her medications. I believe she is stable for discharge at this time. ED Disposition - Plan for ED Patient: Diagnosis: Shortness of breath, Chest pressure, Medication adverse effect Instructions: ED Chest Pain NonCardiac, ED Chest Pain Atypical Unkn Cause, ED Drug React Adverse Other, ED Dyspnea Referrals: Baylee Head MD [Primary Care Provider] -
[2019-09-13] MEDS: Aspirin 81 MG TAB.CHEW 324 MG PO (19:57)
[2019-09-13 19:59] VITALS: O2SAT 98
[2019-09-13 19:59] LABS: Basophil# 0.03 X10^3/uL; Basophil% 0.3 % (0-1); Eosinophil# 0.19 X10^3/uL; Eosinophils% 1.7 % (0-5); Hematocrit 40.3 % (37-47); Hemoglobin 13.1 g/dL (12.0-15.0); Lymphocyte % 29.7 % (19-41); Mean Corp Hgb Conc 32.5 g/dL (32-36); Mean Corpuscular Hgb 28.5 pg (27.0-32.0); Mean Corpuscular Volume 87.6 fL (81-99); Mean Platelet Vol. 9.1 fl (6.2-12.0); Monocyte# 0.58 X10^3/uL; Monocyte% 5.2 % (0-10); NRBC Flagged by Analyzer 0 % (0-5); Neutrophil # 6.96 X10^3/uL (2.7-7.7); Neutrophil % 62.7 % (47-70); Platelet Count 368 K/mm3 (150-450); RBC Distribution Width CV 13.2 % (11.6-14.6); RBC Distribution Width SD 41.7 fl (35.1-43.9); White Blood Count 11.1 K/mm3 (4.4-11.0)
--- NOTE | 2019-09-13 20:03 | RAD_ITS ---
STUDY: X-RAY CHEST REASON FOR EXAM: Female, 33 years old. PATIENT STATES SOB X1 WEEK, GERD TECHNIQUE: Portable chest COMPARISON: 08/15/2019 FINDINGS: There are patchy bilateral pulmonary opacities. There is no demonstrated pleural abnormality. There is stable mild cardiomegaly. Normal mediastinum and lubna. Normal visualized pulmonary arteries. Normal visualized aortic arch and descending thoracic aorta. Normal visualized thoracic spine. Normal visualized ribs, clavicles, and shoulders. There is no demonstrated abnormality of the visualized soft tissue structures of the upper abdomen. RAD/Chest 1 View (Portable) IMPRESSION: Patchy bilateral pulmonary opacities, findings suspicious for pneumonia, possible atypical viral pneumonia Stable mild cardiomegaly Electronically Signed: Easton Hanley, at 20:27 EDT Tel , Service support ,
[2019-09-13 20:18] LABS: Anion Gap 2 (5-15); BUN 14 mg/dL (7-18); BUN/Creat Ratio 17.4 RATIO (10-20); Calcium,Total 9.4 mg/dL (8.5-10.1); Chloride 106 mmol/L (98-107); EST Glomerular Filtration Rate 86 mL/min (>60); Est Glom Filt Rate - Afr Amer 104 mL/min (>60); Estimated Creatinine Clearance 88.32 ml/min; Glucose 93 mg/dL (74-106); Potassium 3.9 mmol/L (3.5-5.1); Sodium Level 137 mmol/L (136-145)
[2019-09-13 21:16] VITALS: BP 130/79; PULSE 76; RESP 18; O2SAT 99
[2019-09-13 22:00] VITALS: BP 130/79; PULSE 71; RESP 18; O2SAT 95
== END 2019-09-13 22:01 | disposition home or self-care (01) ==
LOC: ED 20:08
PROVIDERS: Emergency Provider Student in an Organized Health Care Education/Training Program; PCP Family Medicine
DX: R07.89 Other chest pain (principal); R06.02 Shortness of breath; R06.00 Dyspnea, unspecified; T50.905A Adverse effect of unspecified drugs, medicaments and biological substances, initial encounter; Y92.9 Unspecified place or not applicable; I10 Essential (primary) hypertension; G43.909 Migraine, unspecified, not intractable, without status migrainosus; Z79.899 Other long term (current) drug therapy
CPT/HCPCS: 71045; 80048; 84484; 85025; 93005; 99284

== ENCOUNTER → 2019-11-02 08:24 | Outpatient (CLI) | payer MEDICAID, SELFPAY ==
--- NOTE | 2019-11-02 08:26 | RAD_ITS ---
STUDY: AIR-CONTRAST ESOPHAGRAM STUDY REASON FOR EXAM: Female, 34 years old. Vomiting FLUOROSCOPY TIME (if supplied): (0:36) minutes/seconds, 23 images. TECHNIQUE: Barium pill swallow with sips of water is performed at the beginning of the study without difficulty. Multiple barium swallows were performed under fluoroscopic monitoring. Multiple views of the esophagus, the upper stomach were performed. COMPARISON: None. FINDINGS: Barium pill swallow with sips of water is performed at the beginning of the study without difficulty. The esophagus appears normal in size and shape it shows unremarkable mucosal pattern. There is a small intermittent hiatal hernia. RAD/Esophagus Single Contrast IMPRESSION: There is a small intermittent hiatal hernia. Electronically Signed: Robb Helms, at 14:46 EDT Tel , Service support ,
== END ==
PROVIDERS: PCP Family Medicine; Referring Provider Internal Medicine Gastroenterology; Visit Provider Internal Medicine Gastroenterology
DX: R13.10 Dysphagia, unspecified (principal)
CPT/HCPCS: 74220

== ENCOUNTER → 2019-11-14 09:17 | Outpatient (CLI) | payer MEDICAID, SELFPAY ==
[2019-11-14 10:48] LABS: Thyroid Stim Hormone (TSH) 1.49 uIU/mL (0.358-3.74)
== END ==
PROVIDERS: PCP Family Medicine; Referring Provider Family Medicine; Visit Provider Family Medicine
DX: I10 Essential (primary) hypertension (principal)
CPT/HCPCS: 36415; 84443

== ENCOUNTER → 2019-12-08 | Outpatient (CLI) | payer MEDICAID, SELFPAY ==
--- NOTE | 2019-12-08 12:00 | LES_PTH ---
PATIENT: DONALD KISER LOC: [facility] U#:[id number] AGE/SX: 34/F ROOM: RE12/08/[address]: Dr. Baylee Head MD : [id number] BED: DIS: 12/08/2019 SPEC #: [id number] RECD: 12/08/19 14:57 STATUS: DAREN ABRAHAM #: [id number] ISAMAR: 12/08/19 12:[address]: Baylee Head DEPT: SURGICAL PATHOLOGY RECD BY: Jacey Peña Tissues: Skin of head, NOS Procedures: Surgery Specimen Level IV HEADER OPERATION: Shave biopsy PRE-OP DIAGNOSIS: 5 mm elevated red lesion TISSUE SUBMITTED: Mole, right hairline MICROSCOPIC DIAGNOSIS Skin lesion right hairline, biopsy: Capillary hemangioma. AM:reinier 12/12/19 MICROSCOPIC DESCRIPTION Slides are reviewed. GROSS DESCRIPTION Received is one container labeled with the patient's name and not further designated. The specimen consists of an irregular fragment of light bonilla skin measuring 0.5 x 0.3 x 0.2 cm. The specimen is totally submitted in one cassette. / AM:reinier 12/11/19 TC:5 CPT: 84287
== END | disposition home or self-care (01) ==
LOC: LABSPEC 11:50
PROVIDERS: PCP Family Medicine; Visit Provider Family Medicine
DX: L98.9 Disorder of the skin and subcutaneous tissue, unspecified (principal)
CPT/HCPCS: 88305

== ENCOUNTER → 2020-02-05 10:50 | Outpatient (CLI) | payer MEDICAID, SELFPAY ==
[2020-01-16 10:29] VITALS: BMI 42.0
--- NOTE | 2020-02-05 10:55 | RAD_ITS ---
STUDY: X-RAY - ABDOMEN/PELVIS REASON FOR EXAM: Female, 34 years old. pt states RLQ pressure, states she also has a hiatal hernia TECHNIQUE: 3 views COMPARISON: None. FINDINGS: Normal visualized lung bases. There is an unremarkable bowel gas pattern. There is no demonstrated free abdominal air. The visualized liver, spleen and kidneys are grossly normal in size and morphology. Normal soft tissue structures. Normal visualized osseous structures. RAD/Abd Inc Decub and/or Erect IMPRESSION: Normal x-ray examination of the abdomen and pelvis. Electronically Signed: Clinton Morse DO at 23:34 EST Tel [phone], Service support ,
== END ==
LOC: MTLAB 10:53 → MTRAD 10:54
PROVIDERS: PCP Family Medicine; Referring Provider Family Medicine; Visit Provider Family Medicine
DX: R10.9 Unspecified abdominal pain (principal)
CPT/HCPCS: 74019

== ENCOUNTER → 2020-02-23 09:29 | Outpatient (CLI) | payer MEDICAID, SELFPAY ==
[2020-01-16 10:29] VITALS: BMI 42.0
[2020-02-23 12:24] LABS: Cholesterol 156 mg/dL (200); Glucose 88 mg/dL (74-106); High Density Lipoprotein 46 mg/dL; Triglycerides 161 mg/dL; Very Low Density Lipoprotein 32 mg/dL (5-40)
== END ==
PROVIDERS: PCP Family Medicine; Referring Provider Family Medicine; Visit Provider Family Medicine
DX: I10 Essential (primary) hypertension (principal)
CPT/HCPCS: 36415; 80061; 82947

== ENCOUNTER 2020-03-08 18:32 | Emergency (ER) | payer MEDICAID, SELFPAY ==
[2020-01-16 10:29] VITALS: BMI 42.0
[2020-03-08 18:33] VITALS: BP 172/98; PULSE 98; RESP 16; TEMP 36.6; O2SAT 100; BMI 41.5
--- NOTE | 2020-03-08 19:14 | ED.VIS.GEN ---
History of Present Illness Chief Complaint: Abd Pain Informant: Patient Onset: Weeks - 1 week Context: Gradual Onset Timing: Waxes and wanes Current Severity: Mild Maximum Severity: Moderate Narrative: Patient presents with 1 week history of upper abdominal pain. She states she initially thought had a gas bubble in the left upper quadrant. She noted her stools to be discolored, almost bonilla or mikey in color. She has had increased reflux. She is taking omeprazole and currently taking Tums if she gets a flare of increased acid. - Past Medical History (1) GERD (gastroesophageal reflux disease) Status: Chronic (2) Anxiety Status: Chronic (3) Benign paroxysmal positional vertigo Status: Resolved Comment: Presented to [facility] ER 06/03/2018 (4) Hypertension Status: Chronic Past Medical History - Allergies and Home Meds Allergies/Adverse Reactions: Allergies Penicillins Allergy (Unknown, Verified 03/08/20 18:35) Unknown carvedilol [From Coreg] Adverse Reaction (Intermediate, Verified 03/08/20 18:35) Palpitations, tachycardia Primary Care Physician: Baylee Head MD [Primary Care Provider] - Prior records reviewed: Yes Surgical History: noncontributory Lives: With Family Smoking Status: Never smoker Review of Systems General: Denies: Chills, Fever Eyes: Denies: Visual changes - bilaterally ENT: Denies: Bilateral ear pain Cardiovascular: Denies: Chest pain Respiratory: Denies: Dyspnea, Cough Gastrointestinal: Reports: Abdominal pain, - - Change in stool color Musculoskeletal: Denies: Swelling, Extremity Pain Neurological: Denies: Headache Hematologic: Denies: Easy bruising, Easy bleeding Allergy: Denies: Uticaria Physical Exam Vital Signs/Narrative: Vital Signs Temp Pulse Resp BP Pulse Ox 03/08/20 18:33 97.9 F 98 16 172/98 H 100 Inital Vital Signs reviewed: Yes General: Well nourished, Well developed Head: Normocephalic ENT: Moist mucous membranes Neck: Supple Cardiovascular: Regular rate, Regular rhythm Respiratory: No distress, CTA bilaterally Abdomen: Soft, Tender - Mild epigastric tenderness to palpation., Hypoactive bowel sounds. Negative for: Guarding, Rebound tenderness Skin: Normal color Neurological: Alert, Oriented x3 Psychological: Normal affect Diagnostic/Tx/Re-eval Laboratory Results 03/08/20 03/08/20 20:07 20:07 WBC 10.4 RBC 4.57 Hgb 12.6 Hct 39.1 MCV 85.6 MCH 27.6 MCHC 32.2 RDW Std Deviation 40.4 RDW Coeff of Frandy 12.9 Plt Count 379 MPV 9.1 Immature Gran % (Auto) 0.400 Neut % (Auto) 66.2 Lymph % (Auto) 25.8 Mcdowell % (Auto) 4.6 Eos % (Auto) 2.7 Baso % (Auto) 0.3 Absolute Neuts (auto) 6.9 Absolute Lymphs (auto) 2.69 Nucleated RBC % 0 Sodium 137 Potassium 3.7 Chloride 105 Carbon Dioxide 26.0 Anion Gap 6 BUN 21 H Creatinine 0.97 Estim Creat Clear Calc 72.15 Est GFR (MDRD) Af Amer 84 Est GFR (MDRD) Non-Af 69 BUN/Creatinine Ratio 21.7 H Glucose 94 Calcium 8.9 Total Bilirubin 0.30 Direct Bilirubin 0.08 AST 8 L ALT 20 Alkaline Phosphatase 71 Total Protein 7.6 Albumin 3.6 Globulin 4.0 Lipase 82 - Medical Decision Making She was given a GI cocktail here. On repeat evaluation she is resting comfortably. She will continue her omeprazole and go back to taking Pepcid for breakthrough symptoms instead of Tums. She does have a physician in [place] that she saw for an upper GI in the past. She will follow up with them regarding a possible colonoscopy as well. ED Disposition - Plan for ED Patient: Disposition: Home or Assisted Living Diagnosis: GERD (gastroesophageal reflux disease) Instructions: ED GERD (Adult) Referrals: Baylee Head MD [Primary Care Provider] -
[2020-03-08] MEDS: Mag Hydrox/Al Hydrox/Simeth 30 ML UDC PO (19:35)
[2020-03-08 20:15] LABS: Absolute Lymphocyte Count 2.69 X10^3/uL (0.83-4.51); Absolute Neutrophil Count 6.9 X10^3/uL (2.0-7.7); Basophil# 0.03 X10^3/uL; Basophil% 0.3 % (0-1); Eosinophil# 0.28 X10^3/uL; Eosinophils% 2.7 % (0-5); Hematocrit 39.1 % (37-47); Hemoglobin 12.6 g/dL (12.0-15.0); Lymphocyte # 2.69 X10^3/ul (4.0); Lymphocyte % 25.8 % (19-41); Mean Corp Hgb Conc 32.2 g/dL (32-36); Mean Corpuscular Hgb 27.6 pg (27.0-32.0); Mean Corpuscular Volume 85.6 fL (81-99); Mean Platelet Vol. 9.1 fl (6.2-12.0); Monocyte# 0.48 X10^3/uL; Monocyte% 4.6 % (0-10); NRBC Flagged by Analyzer 0 % (0-5); Neutrophil % 66.2 % (47-70); Platelet Count 379 K/mm3 (150-450); RBC Distribution Width CV 12.9 % (11.6-14.6); RBC Distribution Width SD 40.4 fl (35.1-43.9); Red Blood Count 4.57 M/mm3 (4.2-5.4); White Blood Count 10.4 K/mm3 (4.4-11.0)
[2020-03-08 20:35] LABS: AST(SGOT) 8 U/L (15-37); Alanine Aminotransfer ALT/SGPT 20 U/L (13-56); Albumin, Serum 3.6 g/dL (3.2-5.0); Alkaline Phosphatase 71 U/L (45-117); Anion Gap 6 (5-15); BUN 21 mg/dL (7-18); BUN/Creat Ratio 21.7 RATIO (10-20); Bilirubin, Direct 0.08 mg/dL (0.00-0.30); Calcium,Total 8.9 mg/dL (8.5-10.1); Chloride 105 mmol/L (98-107); Creatinine, Serum 0.97 mg/dL (0.55-1.02); EST Glomerular Filtration Rate 69 mL/min (>60); Est Glom Filt Rate - Afr Amer 84 mL/min (>60); Estimated Creatinine Clearance 72.15 ml/min; Glucose 94 mg/dL (74-106); Lipase 82 U/L (73-393); Potassium 3.7 mmol/L (3.5-5.1); Protein, Total 7.6 g/dL (6.4-8.2); Sodium Level 137 mmol/L (136-145)
== END 2020-03-08 21:37 | disposition home or self-care (01) ==
PROVIDERS: Emergency Provider Emergency Medicine; PCP Family Medicine
DX: K21.9 Gastro-esophageal reflux disease without esophagitis (principal); R10.10 Upper abdominal pain, unspecified; I10 Essential (primary) hypertension; F41.9 Anxiety disorder, unspecified; Z79.82 Long term (current) use of aspirin; Z79.899 Other long term (current) drug therapy
CPT/HCPCS: 80048; 80076; 83690; 85025; 99284; A4216

== ENCOUNTER → 2020-04-18 10:03 | Outpatient (CLI) | payer MEDICAID, SELFPAY ==
--- NOTE | 2020-04-18 10:04 | CDU_ITS ---
Reason For Study: Question subclavian steal Rt. Velocities/BP Lt. Velocities/BP Prox CCA 95.6/14.7 cm/sec. Prox CCA 128/31.4 cm/sec. Mid CCA 98.2/21.3 cm/sec. Mid CCA 95.5/26.1 cm/sec. Dist CCA 102.1/31.7 cm/sec. Dist CCA 86.4/18.8 cm/sec. Prox ICA 63/13.4 cm/sec. Prox ICA 77.7/20 cm/sec. Mid ICA 68.2/33 cm/sec. Mid ICA 77.7/37.2 cm/sec. Dist ICA 64.7/24.6 cm/sec. Dist ICA 77.7/39.7 cm/sec. Rt. ICA/CCA = 0.69. Lt. ICA/CCA = 0.81. Prox ECA 106/22.6 cm/sec. Prox ECA 65.4/13.9 cm/sec. Rt. Vert. 52.2/14.5 cm/sec. Lt. Vert. 60.5/21.2 cm/sec. Right Extracranial There is intimal thickening but no significant atherosclerotic plaque noted in the right common carotid artery. There is intimal thickening but no significant atherosclerotic plaque noted in the right internal carotid artery. There is no significant atherosclerotic plaque noted in the right external carotid artery. Antegrade flow is noted in the right vertebral artery. Left Extracranial There is intimal thickening but no significant atherosclerotic plaque noted in the left common carotid artery. There is intimal thickening but no significant atherosclerotic plaque noted in the left internal carotid artery. There is no significant atherosclerotic plaque noted in the left external carotid artery. Antegrade flow is noted in the left vertebral artery. Procedure Carotid Duplex [id number]. This is a Carotid Duplex examination using B-mode, color flow and specral Doppler. Exam performed in department. Interpretation Summary Intimal thickening right proximal internal carotid artery with less than 50% stenosis. Less than 50% stenosis right external carotid artery. Patent and antegrade right vertebral Intimal thickening proximal left internal carotid artery with less than 50% stenosis. Less than 50% stenosis left external carotid artery. Patent and antegrade left vertebral Findings do not suggest reversal of vertebral artery flow bilaterally Ordering Physician: Bernarda Villeda Referring Physician: Baylee Hu Performed By: Kacy Killian RVT
[2020-04-19 20:07] LABS: Endomysial Antibody IgA Negative (Negative)
[2020-04-19 20:24] LABS: Immunoglobulin A 228 mg/dL (87-352); t-Transglutaminase IgA <2 U/mL (0-3)
== END ==
PROVIDERS: PCP Family Medicine; Referring Provider Physician Assistant Medical; Visit Provider Physician Assistant Medical
DX: I10 Essential (primary) hypertension (principal); K21.9 Gastro-esophageal reflux disease without esophagitis; R10.13 Epigastric pain
CPT/HCPCS: 36415; 82784; 83516; 86255; 93880

== ENCOUNTER → 2020-05-03 14:06 | Outpatient (CLI) | payer MEDICAID, SELFPAY ==
[2020-05-03 17:49] LABS: Lipase 103 U/L (73-393)
== END ==
PROVIDERS: PCP Family Medicine; Referring Provider Family Medicine; Visit Provider Family Medicine
DX: R10.9 Unspecified abdominal pain (principal)
CPT/HCPCS: 36415; 83690

== ENCOUNTER → 2020-05-08 15:39 | Outpatient (CLI) | payer MEDICAID, SELFPAY ==
--- NOTE | 2020-05-08 15:41 | CT_ITS ---
STUDY: CTA CHEST REASON FOR EXAM: Female, 34 years old. subclavian stenosis RADIATION DOSAGE (If Supplied By Facility): CTDIvol = ( 18.52 ) mGy, DLP = ( 545.82 ) mGycm TECHNIQUE: The examination was performed with the intravenous administration of IV 100mL Isovue-370. Post-processing of the angiographic images was performed, with multiplanar reformation and 3D reconstruction. Individualized dose optimization techniques were used for this CT. COMPARISON: None. FINDINGS: Normal enhancement of the main pulmonary artery and right and left pulmonary arteries. Normal enhancement of the bilateral peripheral pulmonary arteries. There is no demonstrated pulmonary embolism. Normal thoracic aorta and visualized great vessels. There is no demonstrated aortic dissection. Normal heart and pericardium. Normal mediastinum. Normal hilar regions. Normal visualized trachea and bronchi. The lungs are well expanded. Normal pulmonary parenchyma. Normal pleura. Normal chest wall structures. Normal osseous structures. Normal visualized upper abdomen. CT/CTA Chest W/WO Contrast IMPRESSION: Normal CTA chest examination, without a demonstrated pulmonary embolism or arterial dissection. Electronically Signed: Layo Tam MD at 22:52 EST , Service support ,
== END ==
PROVIDERS: PCP Family Medicine; Referring Provider Physician Assistant Medical; Visit Provider Physician Assistant Medical
DX: I77.1 Stricture of artery (principal)
CPT/HCPCS: 71275; Q9967

== ENCOUNTER → 2020-07-11 12:36 | Outpatient (CLI) | payer MEDICAID, SELFPAY ==
[2020-07-11 08:53] VITALS: BMI 42.1
[2020-07-13 04:09] LABS: Chlamydia By Nucleic Acid AMP Negative (Negative)
[2020-07-13 07:26] LABS: Gonococcus By Nucleic Acid AMP Negative (Negative)
[2020-07-16 10:45] LABS: HPV APTIMA, High Risk Negative (Negative)
== END ==
PROVIDERS: PCP Family Medicine; Referring Provider Nurse Practitioner Women's Health; Visit Provider Nurse Practitioner Women's Health
DX: Z12.4 Encounter for screening for malignant neoplasm of cervix (principal); N89.8 Other specified noninflammatory disorders of vagina
CPT/HCPCS: 87070; 87205; 87491; 87591; 87624; 88175; G0145

== ENCOUNTER → 2020-10-31 10:18 | Outpatient (CLI) | payer BC, MEDICAID, SELFPAY ==
[2020-10-31 11:23] LABS: Absolute Neutrophil Count 5.6 X10^3/uL (2.0-7.7); Basophil# 0.04 X10^3/uL; Basophil% 0.5 % (0-1); Eosinophil# 0.14 X10^3/uL; Eosinophils% 1.7 % (0-5); Hematocrit 39.1 % (37-47); Hemoglobin 12.8 g/dL (12.0-15.0); Lymphocyte % 24.6 % (19-41); Mean Corp Hgb Conc 32.7 g/dL (32-36); Mean Corpuscular Hgb 27.4 pg (27.0-32.0); Mean Corpuscular Volume 83.7 fL (81-99); Mean Platelet Vol. 9.6 fl (6.2-12.0); Monocyte# 0.33 X10^3/uL; Monocyte% 4.1 % (0-10); NRBC Flagged by Analyzer 0 % (0-5); Neutrophil # 5.59 X10^3/uL (2.7-7.7); Neutrophil % 68.9 % (47-70); Platelet Count 353 K/mm3 (150-450); RBC Distribution Width CV 14.1 % (11.6-14.6); RBC Distribution Width SD 43.1 fl (35.1-43.9); Red Blood Count 4.67 M/mm3 (4.2-5.4); White Blood Count 8.1 K/mm3 (4.4-11.0)
[2020-10-31 11:51] LABS: Vitamin B12 1147 pg/mL (211-911)
[2020-10-31 12:02] LABS: Thyroid Stim Hormone (TSH) 1.51 uIU/mL (0.358-3.74)
[2020-11-06 09:18] LABS: VITAMIN B6 10.7 ug/L (2.0-32.8)
== END ==
PROVIDERS: PCP Family Medicine; Referring Provider Family Medicine; Visit Provider Family Medicine
DX: I10 Essential (primary) hypertension (principal); R68.89 Other general symptoms and signs; K44.9 Diaphragmatic hernia without obstruction or gangrene; G43.909 Migraine, unspecified, not intractable, without status migrainosus
CPT/HCPCS: 36415; 82306; 82607; 82746; 84207; 84443; 85025

== ENCOUNTER → 2021-07-21 | Outpatient (CLI) | payer MEDICAID, SELFPAY ==
[2021-07-21 12:29] LABS: Absolute Lymphocyte Count 2.23 X10^3/uL (0.83-4.51); Absolute Neutrophil Count 4.5 X10^3/uL (2.0-7.7); Basophil# 0.03 X10^3/uL; Basophil% 0.4 % (0-1); Eosinophil# 0.26 X10^3/uL; Eosinophils% 3.5 % (0-5); Hemoglobin 12.8 g/dL (12.0-15.0); Lymphocyte # 2.23 X10^3/ul (0.83-4.51); Lymphocyte % 30.1 % (19-41); Mean Corp Hgb Conc 32.8 g/dL (32-36); Mean Corpuscular Hgb 27.3 pg (27.0-32.0); Mean Corpuscular Volume 83.2 fL (81-99); Mean Platelet Vol. 9.7 fl (6.2-12.0); Monocyte# 0.39 X10^3/uL; Monocyte% 5.3 % (0-10); NRBC Flagged by Analyzer 0 % (0-5); Neutrophil # 4.46 X10^3/uL (2.7-7.7); Neutrophil % 60.3 % (47-70); Platelet Count 362 K/mm3 (150-450); RBC Distribution Width CV 13.8 % (11.6-14.6); RBC Distribution Width SD 41.9 fl (35.1-43.9); Red Blood Count 4.69 M/mm3 (4.2-5.4); White Blood Count 7.4 K/mm3 (4.4-11.0)
[2021-07-21 12:41] LABS: ALB/GLOB Ratio 0.9 RATIO (0.9-2.4); AST(SGOT) 16 U/L (15-37); Alanine Aminotransfer ALT/SGPT 28 U/L (13-56); Albumin, Serum 3.5 g/dL (3.2-5.0); Alkaline Phosphatase 62 U/L (45-117); Anion Gap 7 (5-15); BUN 16 mg/dL (7-18); BUN/Creat Ratio 18.9 RATIO (10-20); Calcium,Total 8.4 mg/dL (8.5-10.1); Chloride 104 mmol/L (98-107); Cholesterol 162 mg/dL (200); Creatinine, Serum 0.85 mg/dL (0.55-1.02); EST Glomerular Filtration Rate 80 mL/min (>60); Est Glom Filt Rate - Afr Amer 97 mL/min (>60); Glucose 97 mg/dL (74-106); High Density Lipoprotein 42 mg/dL; Protein, Total 7.5 g/dL (6.4-8.2); Sodium Level 136 mmol/L (136-145); Triglycerides 200 mg/dL; Very Low Density Lipoprotein 40 mg/dL (5-40)
[2021-07-21 12:46] LABS: Vitamin B12 1027 pg/mL (211-911); Vitamin D,25 Hydroxy 33.6 ng/mL
[2021-07-27 11:07] LABS: Clam <0.10 kU/L (Class 0); Codfish <0.10 kU/L (Class 0); Corn 0.38 kU/L (Class I); Egg, White 1.12 kU/L (Class II); Milk (Cow) <0.10 kU/L (Class 0); Peanut 0.21 kU/L (Class 0/I); SCALLOP 0.18 kU/L (Class 0/I); SESAME SEED <0.10 kU/L (Class 0); Shrimp <0.10 kU/L (Class 0); Soybean <0.10 kU/L (Class 0); Walnut, (Food) <0.10 kU/L (Class 0); Wheat <0.10 kU/L (Class 0)
[2021-07-27 11:30] LABS: Almond <0.10 kU/L (Class 0)
[2021-07-29 09:33] LABS: Peanut 0.26 kU/L (Class 0/I)
[2021-08-15 16:09] LABS: Endomysial Antibody IgA Negative (Negative); Immunoglobulin A 226 mg/dL (87-352)
[2021-08-15 16:43] LABS: t-Transglutaminase IgA <2 U/mL (0-3)
== END | disposition home or self-care (01) ==
PROVIDERS: PCP Family Medicine; Referring Provider Family Medicine; Visit Provider Family Medicine
DX: Z00.00 Encounter for general adult medical examination without abnormal findings (principal); I10 Essential (primary) hypertension; K44.9 Diaphragmatic hernia without obstruction or gangrene; K21.9 Gastro-esophageal reflux disease without esophagitis; K59.09 Other constipation
CPT/HCPCS: 36415; 80053; 80061; 82306; 82607; 82784; 83516; 84207; 85025; 86003; 86255

== ENCOUNTER → 2022-06-19 | Outpatient (CLI) | payer MEDICAID, SELFPAY ==
[2022-06-19 10:23] LABS: Absolute Lymphocyte Count 2.26 X10^3/uL (0.83-4.51); Absolute Neutrophil Count 5.6 X10^3/uL (2.0-7.7); Basophil# 0.03 X10^3/uL; Basophil% 0.4 % (0-1); Eosinophil# 0.12 X10^3/uL; Eosinophils% 1.4 % (0-5); Hematocrit 40.4 % (37-47); Hemoglobin 13.3 g/dL (12.0-15.0); Lymphocyte # 2.26 X10^3/ul (0.83-4.51); Lymphocyte % 26.8 % (19-41); Mean Corp Hgb Conc 32.9 g/dL (32-36); Mean Corpuscular Hgb 28.2 pg (27.0-32.0); Mean Corpuscular Volume 85.8 fL (81-99); Mean Platelet Vol. 9.2 fl (6.2-12.0); Monocyte# 0.41 X10^3/uL; Monocyte% 4.9 % (0-10); NRBC Flagged by Analyzer 0 % (0-5); Neutrophil # 5.57 X10^3/uL (2.7-7.7); Neutrophil % 66.1 % (47-70); Platelet Count 332 K/mm3 (150-450); RBC Distribution Width CV 14.3 % (11.6-14.6); RBC Distribution Width SD 45.3 fl (35.1-43.9); Red Blood Count 4.71 M/mm3 (4.2-5.4); White Blood Count 8.4 K/mm3 (4.4-11.0)
[2022-06-19 10:55] LABS: Vitamin B12 974 pg/mL (211-911)
[2022-06-19 11:08] LABS: ALB/GLOB Ratio 0.8 RATIO (0.9-2.4); AST(SGOT) 12 U/L (15-37); Alanine Aminotransfer ALT/SGPT 19 U/L (13-56); Albumin, Serum 3.4 g/dL (3.2-5.0); Alkaline Phosphatase 63 U/L (45-117); Anion Gap 8 (5-15); BUN 18 mg/dL (7-18); BUN/Creat Ratio 22.7 RATIO (10-20); Calcium,Total 8.7 mg/dL (8.5-10.1); Chloride 106 mmol/L (98-107); Cholesterol 163 mg/dL (200); Creatinine, Serum 0.79 mg/dL (0.55-1.02); EST Glomerular Filtration Rate 86 mL/min (>60); Est Glom Filt Rate - Afr Amer 104 mL/min (>60); Globulin 4.3 g/dL (2.2-4.2); Glucose 97 mg/dL (74-106); High Density Lipoprotein 46 mg/dL; Potassium 4.1 mmol/L (3.5-5.1); Protein, Total 7.7 g/dL (6.4-8.2); Sodium Level 136 mmol/L (136-145); Triglycerides 90 mg/dL; Very Low Density Lipoprotein 18 mg/dL (5-40)
== END | disposition home or self-care (01) ==
PROVIDERS: PCP Family Medicine; Referring Provider Family Medicine; Visit Provider Family Medicine
DX: I10 Essential (primary) hypertension (principal); E03.9 Hypothyroidism, unspecified; R53.83 Other fatigue; E55.9 Vitamin D deficiency, unspecified; K44.9 Diaphragmatic hernia without obstruction or gangrene
CPT/HCPCS: 36415; 80053; 80061; 82306; 82607; 84443; 85025

== ENCOUNTER → 2023-03-09 | Outpatient (CLI) | payer MEDICAID, SELFPAY ==
[2023-03-09 12:16] LABS: Absolute Neutrophil Count 4.7 X10^3/uL (2.0-7.7); Basophil# 0.03 X10^3/uL; Basophil% 0.4 % (0-1); Eosinophil# 0.11 X10^3/uL; Eosinophils% 1.5 % (0-5); Hematocrit 40.6 % (37-47); Lymphocyte % 30.3 % (19-41); Mean Corpuscular Hgb 27.6 pg (27.0-32.0); Mean Corpuscular Volume 86.2 fL (81-99); Mean Platelet Vol. 9.8 fl (6.2-12.0); Monocyte# 0.38 X10^3/uL; NRBC Flagged by Analyzer 0 % (0-5); Neutrophil # 4.74 X10^3/uL (2.7-7.7); Neutrophil % 62.5 % (47-70); Platelet Count 337 K/mm3 (150-450); RBC Distribution Width CV 13.4 % (11.6-14.6); RBC Distribution Width SD 42.4 fl (35.1-43.9); Red Blood Count 4.71 M/mm3 (4.2-5.4); White Blood Count 7.6 K/mm3 (4.4-11.0)
[2023-03-09 12:42] LABS: ALB/GLOB Ratio 0.9 RATIO (0.9-2.4); AST(SGOT) 9 U/L (15-37); Alanine Aminotransfer ALT/SGPT 15 U/L (13-56); Albumin, Serum 3.6 g/dL (3.2-5.0); Alkaline Phosphatase 59 U/L (45-117); Anion Gap 4 (5-15); BUN 16 mg/dL (7-18); BUN/Creat Ratio 19.5 RATIO (10-20); Calcium,Total 8.8 mg/dL (8.5-10.1); Chloride 107 mmol/L (98-107); Cholesterol 145 mg/dL (200); Creatinine, Serum 0.82 mg/dL (0.55-1.02); EST Glomerular Filtration Rate 82 mL/min (>60); Est Glom Filt Rate - Afr Amer 100 mL/min (>60); Globulin 4.1 g/dL (2.2-4.2); Glucose 94 mg/dL (74-106); High Density Lipoprotein 52 mg/dL; Protein, Total 7.7 g/dL (6.4-8.2); Sodium Level 137 mmol/L (136-145); Triglycerides 93 mg/dL; Very Low Density Lipoprotein 19 mg/dL (5-40)
== END | disposition home or self-care (01) ==
LOC: BIMLAB 11:21
PROVIDERS: PCP Family Medicine; Visit Provider Family Medicine
DX: Z00.00 Encounter for general adult medical examination without abnormal findings (principal); I10 Essential (primary) hypertension
CPT/HCPCS: 36415; 80053; 80061; 85025

== ENCOUNTER → 2023-04-08 | Outpatient (CLI) | payer MEDICAID, SELFPAY ==
--- OUTSIDE RECORDS SUMMARY | 2023-04-08 14:19 | XMS RPT_ITS | CCD ---
Author Name Unknown Address [address] [facility] [address] [place] [address] Organization [facility] Care Team Providers Care Infantryman Name Role Phone Traci Gonsales Unavailable Unavailable Unknown, Referring Provider Unavailable Unav ailable Susi Sanchez Unavailable Unavailable Traci Gonsales Unavailable Unavailable Apollo Mccarty Unavailable Unavailable Baylee Head Unavailable Unavailable Unknown, Referring Provider Unavailable Unav ailable Marie Bass Unavailable Unavailable Baylee Head Unavailable Unavailable Unavailable [facility] Admitting Unava ilable [facility] Attending Unava ilable [facility] Primary Care Unava ilable Rohini YOUSSEF, Douglas Osborne Unavailable Baylee Head MD Primary Care Provider BAYLEE HEAD Primary Care Unavailable ROSENDO NERI Attending Unavailable Baylee Head MD Unavailable Allergies Allergy Classification Reported Allergen(s) Allergy Type Date of Onset Reaction(s) Facility Penicillins (antibiotic) (2 sources) Penicillins; Translations: [Penicillins] Drug Allergy Other [facility] Work Phone: (7 sources) Penicillins; Translations: [Penicillins] drug allergy 5 Other [facility] (2 sources) Penicillins Propensity to adverse reactions to drug 5 Hives, Other [facility] Work Phone: Medications Current Medications Medication Drug Class(es) Dates Sig (Normalized) Sig (Original) lisinopril 10 mg oral tablet (4 sources) Angiotensin Converting Enzyme Inhibitor take 1 tablet by mouth once daily lisinopril 10 mg tablet Take 1 tablet (10 mg) by mouth once daily. 0 Active Completed/Discontinued Medications Medication Drug Class(es) Dates Sig (Normalized) Sig (Original) Acetaminophen (4 sources) Acetaminophen CA PS Quantity: 0 Refills: 0 Ordered: 25-Sep-2019 DO Active Problems Active Problems Problem Classification Problem Date Documented Da te Episodic/Chronic Anxiety disorders (2 sources) Anxiety; Translations: [Anxiety] Chronic Cardiac dysrhythmias (5 sources) Paroxysmal supraventricular tachycardia; Translations: [Paroxysmal supraventricular tachycardia] Chronic Cardiac dysrhythmias (5 sources) Intermittent palpitations; Translations: [Palpitations] Episodic Chronic kidney disease (2 sources) Chronic kidney disease stage 2; Translations: [Chronic kidney disease, stage 2 (mild)] Onset: 4 04-08-2023 Chronic 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 (8 sources) Cognitive disorder; Translations: [Unspecified persistent mental disorders due to conditions classified elsewhere] Chronic Esophageal disorders (4 sources) Gastroesophageal reflux disease; Translations: [Esophageal reflux] Chronic Essential hypertension (3 sources) Hypertensive disorder; Translations: [Essential (primary) hypertension] Onset: 0 03-26-2011 Chronic Headache; including migraine (2 sources) Transformed migraine; Translations: [Chronic migraine with aura without status migrainosus, not intractable] Onset: 4 04-08-2023 Chronic Headache; including migraine (8 sources) Headache; Translations: [Headache] Episodic Hypertension complicating ; childbirth and the puerperium (1 source) -induced hypertension; Translations: [Gestational [-induced] hypertension without significant proteinuria, unspecified trimester] 08-05-2016 Episodic Joint disorders and dislocations; trauma-related (1 source) Disorder of patellofemoral joint; Translations: [Patellofemoral disorders, unspecified knee] Onset: 2 04-13-2011 Chronic Other circulatory disease (8 sources) H/O: hypertension; Translations: [Personal history of other diseases of circulatory system] Episodic Other gastrointestinal disorders (4 sources) Dysphagia; Translations: [Dysphagia, unspecified] Episodic Other gastrointestinal disorders (4 sources) Chronic constipation; Translations: [Constipation, unspecified] Episodic Other gastrointestinal disorders (4 sources) Personal history of other diseases of the digestive system; Translations: [History of gastroesophageal reflux disease] Episodic Other nutritional; endocrine; and metabolic disorders (4 sources) Simple obesity ; Translations: [Obesity, unspecified] Chronic Other nutritional; endocrine; and metabolic disorders (1 source) Obese class I; Translations: [Obesity, unspecified] Onset: 3 07-06-2012 Chronic Screening and history of mental health and substance abuse codes (16 sources) H/O: anxiety state; Translations: [H/O: depression] Resolved: 0 Episodic Past or Other Problems Problem Classification Problem Date Documented Da te Episodic/Chronic Anal and rectal conditions (2 sources) Anorectal pain; Translations: [Other specified diseases of anus and rectum] Onset: 08-27-2022 Episodic Diabetes mellitus without complication (1 source) Impaired fasting glycemia; Translations: [Impaired fasting glucose] Onset: 03-15-2016 08-05-2016 Episodic Genitourinary symptoms and ill-defined conditions (3 sources) Proteinuria; Translations: [Proteinuria, unspecified] Onset: 03-17-2013 03-17-2013 Episodic Other non-traumatic joint disorders (1 source) Pain in lower limb; Translations: [Pain in unspecified knee] Onset: 04-13-2011 04-13-2011 Episodic Other non-traumatic joint disorders (1 source) Disorder of lower leg; Translations: [Joint disorder, unspecified] Onset: 04-13-2011 04-13-2011 Episodic NEGATED: Highlighted row has not occurred!Residual codes; unclassified (20 sources) Disease Episodic Results Test Name Value Interpretation Reference Range Facil ity Vital Signs Date Time Vital Sign Value Performing Clinician Facility 04-08-2023 10:14050 Body height 165.1 cm Shashank Bello [employer] Work Phone: [facility] 04-08-2023 10:14-050 Body mass index (BMI) [Ratio] 35.15 kg/m2 Shashank Bello [employer] Work Phone: [facility] 04-08-2023 10:14-050 Body weight 95.8 kg Shashank Bello [employer] Work Phone: [facility] 04-08-2023 10:14-0500 Diastolic blood pressure 84 mm[Hg] Shashank Bello DO Work Phone: [facility] 04-08-2023 10:14-0500 Heart rate 78 /min Shashank Bello DO Work Phone: [facility] 04-08-2023 10:14-0500 Systolic blood pressure 132 mm[Hg] Shashank Bello DO Work Phone: [facility] 08-27-2022 15:46-0400 Body height 165.1 cm Rosnedo Neri MD Work Phone: [facility] 08-27-2022 15:46-0400 Body temperature 97.3 [degF] Rosendo Neri MD Work Phone: [facility] 08-27-2022 15:46-0400 Body weight 108.41 kg Rosendo Neri MD Work Phone: [facility] 08-27-2022 15:46-0400 Diastolic blood pressure 88 mm[Hg] Rosendo Neri MD Work Phone: [facility] 08-27-2022 15:46-0400 Heart rate 79 /min Rosendo Neri MD Work Phone: [facility] 08-27-2022 15:46-0400 SaO2% (BldA) [Mass fraction] 99 % Rosendo Neri MD Work Phone: [facility] 08-27-2022 15:46-0400 Systolic blood pressure 116 mm[Hg] Rosendo Neri MD Work Phone: [facility] 10-05-2019 16:19-0400 BMI (Body Mass Index) 42.27 kg/m2 [facility] Work Phone: 10-05-2019 16:19-0400 Body weight 115.21 kg Marie Bass [facility] Work Phone: 10-05-2019 16:19-0400 BSA (Body Surface Area) 2.19 m2 Marie [facility] Work Phone: 10-05-2019 16:19-0400 Height 165.1 cm Marie [facility] Work Phone: 02-22-2019 11:45-0500 BMI (Body Mass Index) 42.27 kg/m2 Traci Gonsales [facility] DO Work Phone: 02-22-2019 11:45-0500 Body weight 115.21 kg Traci Gonsales JQ-Uelraqvpj-Cps urvashi 170 DO Work Phone: 02-22-2019 11:45-0500 BP Diastolic 90 mm[Hg] Traci Gonsales NP-Mdsjazzsg-Pcz urvashi 170 DO Work Phone: Encounters Encounter Date Encounter Type Care Provider Facility Start: 04-08-2023 End: 04-08-2023 Office outpatient new 45 minutes Shashank Bello DO Work Phone: [facility] Procedures Date Procedure Procedure Detail Performing Clinician Start: 06-05-2020 Follow-up visit Start: 10-26-2019 Follow-up visit Start: 10-05-2019 Follow-up visit Start: 09-25-2019 Endoscopy - Upper GI Tyler Bass Start: 09-19-2019 Follow-up visit Start: 02-22-2019 MRI Brain w/wo Contrast Traci Gonsales NEGATED: Highlighted row has not occurred! Colonoscopy Baylee Head Work Phone: Plan of Treatment Date Care Activity Detail Author Start: 10-19-2033 Zoster Vaccines (1 o f 2) Zoster Vaccines (1 of 2) [facility] Start: 04-22-2023 End: 04-22-2023 Patient encounter procedure 04/22/2023 10:00 AM EST Office Visit [facility] [address] [place] [id number] Traci Gonsales MD [address] [place] [address] [facility] Start: 04-08-2023 End: 04-08-2024 Basic metabolic 2000 panel - Serum or Plasma Basic metabolic panel Lab Routine Chronic kidney disease, stage 2 (mild) Expected: 04/08/2023 (Approximate), Expires: 04/08/2024 [facility] Service Area Work Phone: Immunizations Immunization Date Immunization Notes Care Provider Fa liat 07-06-2012 tetanus toxoid, redu maricarmen diphtheria toxoid, and acellular pertussis vaccine, adsorbed Rosendo Neri MD Work Phone: [facility] Work Phone: Payers Date Payer Category Payer Medicaid [employer] [id number] 2022-Present [phone] [address] [place] [address] Medicaid [id number] 2022 Medicaid [id number] 2018 Unknown Social History Date Type Detail Facility Assertion Unknown if ever smoked [facility] DO Work Phone: Start: 04-08-2023 No alcohol use No alcohol use [facility] Work Phone: Functional Status Date Assessment Result Facility NEGATED: Highlighted row Functional performance Functional status health issues are not documented Disease YC[facility]Rlsgspscf-Vbjnoq 170 DO Work Phone: Mental Status Date Assessment Result Facility NEGATED: Highlighted row Cognitive function [Interpretation] Cognitive status health issues are not documented Disease GD-U[facility]tt[facility] 170 DO Work Phone: History of Present illness Narrative 04-08-2023 Shashank Bello, DO - 04/08/2023 10:30 AM EST Note Date & Type Note Facility 04-08-2023 History of Present illness Narrative Subjective She states she drinks lots of water She has lost weight Urinates a lot On Lisinopril On Ibuprofen. Takes Frequently. Has Migraines Patient ID: Gaviota Hou is a 37 y.o. female who presents for Consult (New pt/Review labs/Family hx Kidney Disease). HPI She is here for new patient visit She is here with a family history of renal disease My evaluation and plan is communicated back via the electronic medical record Blood work was last completed that I can see 2 years ago. In June 2020 was her last blood work. She did bring some labs here with her that was drawn on March 09, 2023 Glucose 94 BUN is 16 with a creatinine of 1.82 LFTs are pretty unremarkable Electrolytes also look quite good Lipid panel looks good Hemoglobin 13 Blood pressure here in the office today is 132/80 Back in 2020 she was screened for celiac's and this was negative Medications are reviewed she is on lisinopril 10 mg Review of Systems Constitutional: Negative. HENT: Negative. Eyes: Negative. Respiratory: Negative. Cardiovascular: Negative. Gastrointestinal: Negative. Endocrine: Negative. Genitourinary: Negative. Musculoskeletal: Negative. Skin: Negative. Allergic/Immunologic: Negative. Neurological: Negative. Hematological: Negative. Psychiatric/Behavioral: Negative. Objective Physical Exam Constitutional: Appearance: Normal appearance. HENT: Head: Normocephalic and atraumatic. Right Ear: External ear normal. Left Ear: External ear normal. Nose: Nose normal. Mouth/Throat: Mouth: Mucous membranes are moist. Pharynx: Oropharynx is clear. Eyes: Extraocular Movements: Extraocular movements intact. Conjunctiva/sclera: Conjunctivae normal. Pupils: Pupils are equal, round, and reactive to light. Cardiovascular: Rate and Rhythm: Normal rate and regular rhythm. Pulmonary: Effort: Pulmonary effort is normal. Breath sounds: Normal breath sounds. Abdominal: General: Abdomen is flat. Palpations: Abdomen is soft. Skin: General: Skin is warm and dry. Neurological: General: No focal deficit present. Mental Status: She is alert and oriented to person, place, and time. Psychiatric: Mood and Affect: Mood normal. Behavior: Behavior normal. Assessment/Plan Problem List Items Addressed This Visit ICD-10-CM HTN (hypertension) I10 Chronic kidney disease, stage 2 (mild) - Primary N18.2 Relevant Orders Basic metabolic panel Urinalysis with Reflex Microscopic Albumin, urine, random US renal complete Follow Up In Nephrology Migraines G43.909 Discussed renal function in detail Will get urine and US Discussed NSAID use Discussed ACEI. Still has ability to have children so counseled on being careful with ACEI. CKD II HTN: Well controlled Migraines NSAID Use Obesity Shashank Bello DO 04/08/23 10:20 AM documented in this encounter [facility] Work Phone: Progress note 08-28-2022 Note Date & Type Note Facility 08-28-2022 Note HNO ID: [id number] Author: Rosendo Neri MD Service: ? Author Type: Physician Type: Progress Notes Filed: 08/28/2022 8:33 AM Note Text: HISTORY AND PHYSICAL Gaviota Hou 1985 REFERRING PHYSICIAN: No ref. provider found CHIEF COMPLAINT: Anal Pain HPI: Gaviota is a 36 year old female with a complaint of anal pain. The patient states she occasionally notes a feeling of a bulge in her anal region. Upon further discussion she notes this is more in the posterior midline. She notes bright red blood per rectum off and on the toilet paper sometimes in the toilet. This does not seem to be mixed within the stool. She notes some pain with bowel movements though its not severe. Her last episode was bleeding was approximately 2 weeks previously. She notes a history of constipation. She was recommended to take fiber. She is reluctant to take something its not natural. The patient is being seen by me today at the request of Dr. Baylee Head MD for my opinion and advice regarding anal pain with bright red blood per rectum. SIGNIFICANT MEDICAL PROBLEMS: PAST MEDICAL HISTORY Diagnosis Date Albuminuria 2017 CHF (congestive heart failure) ([facility]) Sees [facility] Generalized anxiety disorder GERD (gastroesophageal reflux disease) Hiatal hernia Hypertension Hypothyroidism Impaired fasting blood sugar 2017 PIH ( induced hypertension) Stented coronary artery 2018 Sees [facility] OPERATIONS: PAST SURGICAL HISTORY Procedure Laterality Date EGD N/A 02/06/2020 mild stenosis 35cm from incisors - gaurav - Marie Bass NONE CURRENT MEDICATIONS: Current Outpatient Medications Medication Sig Dispense Refill loratadine (CLARITIN) 10 mg tablet Take 10 mg by mouth once daily. propranolol ER (INDERAL LA) 60 mg 24 hr capsule Take 60 mg by mouth once daily. lisinopril (ZESTRIL, PRINIVIL) 10 mg tablet Take 10 mg by mouth once daily. bismuth subsalicylate (PEPTO-BISMOL ORAL) Take 1 Dose by mouth as needed. omeprazole (PRILOSEC) 10 mg capsule Take 10 mg by mouth once daily. (Patient not taking: Reported on 08/27/2022) fluticasone (FLONASE) 50 mcg/actuation nasal spray Use 1 [place] in each nostril daily at bedtime. (Patient not taking: Reported on 08/27/2022) 18.2 mL 0 hydroCHLOROthiazide 12.5 mg capsule Take 12.5 mg by mouth once daily. (Patient not taking: No sig reported) Oghjhgu-Yebhotsgyxrnb-Nhvmetyx (MIGRAINE RELIEF) 250-250-65 mg per tablet Take 1 tablet by mouth once daily. (Patient not taking: Reported on 06/13/2020 ) ibuprofen (MOTRIN) 200 mg tablet Take 200 mg by mouth every 6 hours as needed. simethicone (GAS-X ORAL) Take 1 capsule by mouth as needed. (Patient not taking: Reported on 08/27/2022) fluticasone (FLONASE) 50 mcg/actuation nasal spray Use 2 Sprays in each nostril once daily. Rinse mouth after use. (Patient not taking: Reported on 08/27/2022) 1 Bottle 0 losartan-hydrochlorothiazide (HYZAAR) 50-12.5 mg per tablet Take 1 tablet by mouth once daily. (Patient not taking: No sig reported) 30 tablet 5 lidocaine HCl (ASPERCREME, LIDOCAINE,) 4 % crea Apply 1 application to affected area four times daily as needed (bilateral foot pain). (Patient not taking: Reported on 04/25/2020 ) 1 Bottle 3 Cholecalciferol, Vitamin D3, 2,000 unit cap Take 1 tablet by mouth once daily. (Patient not taking: Reported on 08/27/2022) 30 capsule 5 No current facility-administered medications for this visit. ALLERGIES: Penicillins PERSONAL HISTORY: Social History Tobacco Use Smoking status: Never Smokeless tobacco: Never Vaping Use Vaping Use: Never used Substance Use Topics Alcohol use: Not Currently Drug use: No FAMILY HISTORY: FAMILY HISTORY Problem Relation Age of Onset Hypertension Mother Hypertension Maternal Grandmother Stroke Maternal Grandmother Heart Maternal Grandfather [place]; stent, CABG Diabetes Paternal Grandmother Stroke Paternal Grandmother Hypertension Maternal Aunt REVIEW OF SYMPTOMS: The review of systems data was entered by the nurse and reviewed by me Nursing Notes: Rosy MARLENY Gonzales 08/27/2022 3:55 PM Signed REVIEW OF SYSTEMS: General: The patient denies fatigue, denies weight loss, denies weight gain, NOTES feeling hot, and denies feelings of cold. Eyes: The patient denies glaucoma, denies eye injury/surgery, wears glasses or contacts. Ear/Nose/Throat: The patient NOTES allergies, denies hayfever, denies ear infections, and denies bloody noses. Cardiovascular: The patient denies chest pain, denies heart disease, NOTES high blood pressure,denies cardiac stent, denies prior heart attack, denies irregular heart beat, denies high cholesterol, denies poor circulation, denies heart failure, other cardiac issues, NOTES claudication, denies cold feet, denies peripheral arterial stent. Respiratory: The patient denies tuberculosis, denies pneumonia, denies frequent cough, denies pulmona (more content not included)... [facility] History of Present illness Narrative 08-28-2022 Rosendo Neri MD - 08/28/2022 8:30 AM EDT Note Date & Type Note Facility 08-28-2022 History of Presen t illness Narrative HISTORY AND PHYSICAL Gaviota Hou 1985 REFERRING PHYSICIAN: No ref. provider found CHIEF COMPLAINT: Anal Pain HPI: Gaviota is a 36 year old female with a complaint of anal pain. The patient states she occasionally notes a feeling of a bulge in her anal region. Upon further discussion she notes this is more in the posterior midline. She notes bright red blood per rectum off and on the toilet paper sometimes in the toilet. This does not seem to be mixed within the stool. She notes some pain with bowel movements though its not severe. Her last episode was bleeding was approximately 2 weeks previously. She notes a history of constipation. She was recommended to take fiber. She is reluctant to take something its not natural. The patient is being seen by me today at the request of Dr. Baylee Head MD for my opinion and advice regarding anal pain with bright red blood per rectum. SIGNIFICANT MEDICAL PROBLEMS: PAST MEDICAL HISTORY Diagnosis Date Albuminuria 2016 CHF (congestive heart failure) ([facility]) [facility] Generalized anxiety disorder GERD (gastroesophageal reflux disease) Hiatal hernia Hypertension Hypothyroidism Impaired fasting blood sugar 2016 PIH ( induced hypertension) Stented coronary artery 2018 Sees [facility] OPERATIONS: PAST SURGICAL HISTORY Procedure Laterality Date EGD N/A 02/06/2020 mild stenosis 35cm from incisors - gaurav - Marie Bass NONE CURRENT MEDICATIONS: Current Outpatient Medications Medication Sig Dispense Refill loratadine (CLARITIN) 10 mg tablet Take 10 mg by mouth once daily. propranolol ER (INDERAL LA) 60 mg 24 hr capsule Take 60 mg by mouth once daily. lisinopril (ZESTRIL, PRINIVIL) 10 mg tablet Take 10 mg by mouth once daily. bismuth subsalicylate (PEPTO-BISMOL ORAL) Take 1 Dose by mouth as needed. omeprazole (PRILOSEC) 10 mg capsule Take 10 mg by mouth once daily. (Patient not taking: Reported on 08/27/2022) fluticasone (FLONASE) 50 mcg/actuation nasal spray Use 1 [place] in each nostril daily at bedtime. (Patient not taking: Reported on 08/27/2022) 18.2 mL 0 hydroCHLOROthiazide 12.5 mg capsule Take 12.5 mg by mouth once daily. (Patient not taking: No sig reported) Ntodjmi-Rojxhgvcqmhru-Qhhgwscj (MIGRAINE RELIEF) 250-250-65 mg per tablet Take 1 tablet by mouth once daily. (Patient not taking: Reported on 06/13/2020 ) ibuprofen (MOTRIN) 200 mg tablet Take 200 mg by mouth every 6 hours as needed. simethicone (GAS-X ORAL) Take 1 capsule by mouth as needed. (Patient not taking: Reported on 08/27/2022) fluticasone (FLONASE) 50 mcg/actuation nasal spray Use 2 Sprays in each nostril once daily. Rinse mouth after use. (Patient not taking: Reported on 08/27/2022) 1 Bottle 0 losartan-hydrochlorothiazide (HYZAAR) 50-12.5 mg per tablet Take 1 tablet by mouth once daily. (Patient not taking: No sig reported) 30 tablet 5 lidocaine HCl (ASPERCREME, LIDOCAINE,) 4 % crea Apply 1 application to affected area four times daily as needed (bilateral foot pain). (Patient not taking: Reported on 04/25/2020 ) 1 Bottle 3 Cholecalciferol, Vitamin D3, 2,000 unit cap Take 1 tablet by mouth once daily. (Patient not taking: Reported on 08/27/2022) 30 capsule 5 No current facility-administered medications for this visit. ALLERGIES: Penicillins PERSONAL HISTORY: Social History Tobacco Use Smoking status: Never Smokeless tobacco: Never Vaping Use Vaping Use: Never used Substance Use Topics Alcohol use: Not Currently Drug use: No FAMILY HISTORY: FAMILY HISTORY Problem Relation Age of Onset Hypertension Mother Hypertension Maternal Grandmother Stroke Maternal Grandmother Heart Maternal Grandfather [place]; stent, CABG Diabetes Paternal Grandmother Stroke Paternal Grandmother Hypertension Maternal Aunt REVIEW OF SYMPTOMS: The review of systems data was entered by the nurse and reviewed by sc Nursing Notes: Rosy Gonzales LPN 08/27/2022 3:55 PM Signed REVIEW OF SYSTEMS: General: The patient denies fatigue, denies weight loss, denies weight gain, NOTES feeling hot, and denies feelings of cold. Eyes: The patient denies glaucoma, denies eye injury/surgery, wears glasses or contacts. Ear/Nose/Throat: The patient NOTES allergies, denies hayfever, denies ear infections, and denies bloody noses. Cardiovascular: The patient denies chest pain, denies heart disease, NOTES high blood pressure,denies cardiac stent, denies prior heart attack, denies irregular heart beat, denies high cholesterol, denies poor circulation, denies heart failure, other cardiac issues, NOTES claudication, denies cold feet, denies peripheral arterial stent. Respiratory: The patient denies tuberculosis, denies pneumonia, denies frequent cough, denies pulmonary embolism, denies shortness of breath, and denies coughing up blood. Gastrointestinal: The patient denies difficulty swallowing, NOTES acid reflux, denies ulcers, denies vomiting, denies jaundice/hepatitis, denies gallbladder problems, denies black or tarry stools, NOTES hemorrhoids, denies bleeding from rectum, denies diverticulitis, NOTES constipation, denies diarrhea, denies loss of stool control, and NOTES hernias. Kidney/Bladder: The patient denies kidney stones, denies urine infections, and denies bloody urine. Skin: The patient denies a history of skin cancer, denies bleeding/changing moles, and denies a history of skin rash. Neurologic: The patient denies a history of epilepsy/convulsions, NOTES headaches, denies head/spinal injuries, and denies stroke/TIA. Psychiatric: The patient denies psychiatric medications, denies depression, and denies voices, denies substance abuse. Endocrine: The patient denies thyroid disorders, denies diabetes, and denies hormonal problems. Hematologic: The patient denies a history of bruising, denies bleeding, and denies anemia, denies blood clots. Infections: The patient denies a history of measles and mumps, denies rheumatic fever, and denies sexually transmitted diseases. Musculoskeletal: The patient denies back pain/injury, denies back problems, denies sciatica, denies knee/foot trouble, denies arthritis, or denies gout. When was patient's last Mammogram screening? N/A Last Colonoscopy: no prior Rosy Gonzales LPN PHYSICAL EXAMINATION: General: The patient is 36 year old female, well nourished, well hydrated in no acute distress. The patient is oriented to time, place, and person. VITALS: Blood pressure 116/88, pulse 79, temperature 36.3 C (97.3 F), height 165.1 cm (5' 5 ), weight 108.4 kg (239 lb), last menstrual period 05/23/2020, SpO2 99 %. Body mass index is 39.77 kg/m . HEENT: exam deferred Respiratory: exam deferred Cardiac: exam deferred. Abdominal exam: exam deferred Rectal exam: External exam - no sentinal pile. A posterior midline fissure is active but not obvious. Digital rectal exam no discrete abnormalities currently Extremities: exam deferred Other: LABORATORY VALUES: As Noted RADIOLOGIC STUDIES: As Noted Assessment IMPRESSION: LIKELY ANAL FISSURE PLAN: Gaviota is instructed to perform sitz baths twice a day and after each bowel movement if her symptoms recur. Place dibucaine ointment on anus as needed and before all bowel movements. Keep stools soft and avoid straining if possible. If she notes pain and bleeding and I have asked her to come within a few days so I can evaluate if this is truly an anal fissure Diagnoses: (K62.89) Anal or rectal pain (primary encounter diagnosis) My findings have been communicated to Dr. Baylee Head MD via shared medical record. This note will be forwarded to Dr. Baylee Head MD. Return to Clinic: The patient is instructed to follow-up with me as needed. Rosendo Neri MD documented in this encounter [facility] Nurse Note 08-27-2022 Rosy GonzalesMARLENY - 08/27/2022 3:51 PM EDT Note Date & Type Note Facility 08-27-2022 Nurse Note REVIEW OF SYSTEMS: General: The patient denies fatigue, denies weight loss, denies weight gain, NOTES feeling hot, and denies feelings of cold. Eyes: The patient denies glaucoma, denies eye injury/surgery, wears glasses or contacts. Ear/Nose/Throat: The patient NOTES allergies, denies hayfever, denies ear infections, and denies bloody noses. Cardiovascular: The patient denies chest pain, denies heart disease, NOTES high blood pressure,denies cardiac stent, denies prior heart attack, denies irregular heart beat, denies high cholesterol, denies poor circulation, denies heart failure, other cardiac issues, NOTES claudication, denies cold feet, denies peripheral arterial stent. Respiratory: The patient denies tuberculosis, denies pneumonia, denies frequent cough, denies pulmonary embolism, denies shortness of breath, and denies coughing up blood. Gastrointestinal: The patient denies difficulty swallowing, NOTES acid reflux, denies ulcers, denies vomiting, denies jaundice/hepatitis, denies gallbladder problems, denies black or tarry stools, NOTES hemorrhoids, denies bleeding from rectum, denies diverticulitis, NOTES constipation, denies diarrhea, denies loss of stool control, and NOTES hernias. Kidney/Bladder: The patient denies kidney stones, denies urine infections, and denies bloody urine. Skin: The patient denies a history of skin cancer, denies bleeding/changing moles, and denies a history of skin rash. Neurologic: The patient denies a history of epilepsy/convulsions, NOTES headaches, denies head/spinal injuries, and denies stroke/TIA. Psychiatric: The patient denies psychiatric medications, denies depression, and denies voices, denies substance abuse. Endocrine: The patient denies thyroid disorders, denies diabetes, and denies hormonal problems. Hematologic: The patient denies a history of bruising, denies bleeding, and denies anemia, denies blood clots. Infections: The patient denies a history of measles and mumps, denies rheumatic fever, and denies sexually transmitted diseases. Musculoskeletal: The patient denies back pain/injury, denies back problems, denies sciatica, denies knee/foot trouble, denies arthritis, or denies gout. When was patient's last Mammogram screening? N/A Last Colonoscopy: no prior Rosy Gonzales LPN documented in this encounter [facility] Evaluation note Note Date & Type Note Facility documented in this encounter [facility] Evaluation note Note Date & Type Note Facility documented in this encounter [facility] Work Phone: Reason for referral (narrative) Consultation (Routine) - Authorized Note Date & Type Note Facility Referral ID Status Reason Start Date Expiration Date V isits Requested Visits Authorized [id number] Authorized 04/08/2023 04/07/2024 1 1 * Imaging (Routine) - Authorized Specialty Diagnoses / Procedures Referred By Freddy cisneros Referred To Contact Radiology Diagnoses Chronic kidney disease, stage 2 (mild) Procedures US renal complete Shashank Bello DO [address] [place] [address] Referral ID Status Reason Start Date Expiration Date Visits Requested Visits Authorized [id number] Authorized Perform Procedure 04/08/2023 04/07/2024 1 1 [facility] Work Phone: Family History Grandmother Name Dates Details Family history of hypertensi on(V17.49, Z82.49) Status:Active Family history of cerebral a neurysm(V17.1, Z82.49) Status:Active Grandfather Name Dates Details Family history of myocardial infarction(V17.3, Z82.49) Status:Active Mother Name Dates Details Family history of Supraventr icular tachycardia by ECG(427.0, I47.1) Status:Active Grandmother Name Dates Details Family history of hypertensi on(V17.49, Z82.49) Status:Active Family history of cerebral a neurysm(V17.1, Z82.49) Status:Active Grandfather Name Dates Details Family history of myocardial infarction(V17.3, Z82.49) Status:Active Mother Name Dates Details Family history of Supraventr icular tachycardia by ECG(427.0, I47.1) Status:Active Grandmother Name Dates Details Family history of hypertensi on(V17.49, Z82.49) Status:Active Family history of cerebral a neurysm(V17.1, Z82.49) Status:Active Grandfather Name Dates Details Family history of myocardial infarction(V17.3, Z82.49) Status:Active Mother Name Dates Details Family history of Supraventr icular tachycardia by ECG(427.0, I47.1) Status:Active Grandmother Name Dates Details Family history of hypertensi on(V17.49, Z82.49) Status:Active Family history of cerebral a neurysm(V17.1, Z82.49) Status:Active Grandfather Name Dates Details Family history of myocardial infarction(V17.3, Z82.49) Status:Active Mother Name Dates Details Family history of Supraventr icular tachycardia by ECG(427.0, I47.1) Status:Active Grandmother Name Dates Details Family history of hypertensi on(V17.49, Z82.49) Status:Active Family history of cerebral a neurysm(V17.1, Z82.49) Status:Active Grandfather Name Dates Details Family history of myocardial infarction(V17.3, Z82.49) Status:Active Mother Name Dates Details Family history of Supraventr icular tachycardia by ECG(427.0, I47.1) Status:Active Grandmother Name Dates Details Family history of hypertensi on(V17.49, Z82.49) Status:Active Family history of cerebral a neurysm(V17.1, Z82.49) Status:Active Grandfather Name Dates Details Family history of myocardial infarction(V17.3, Z82.49) Status:Active Mother Name Dates Details Family history of Supraventr icular tachycardia by ECG(427.0, I47.1) Status:Active Unknown Family Member Name Dates Details Supraventricular tachycardia by ECG: Mother Status:Active Family history of hypertensi on: Grandmother(V17.49, Z82.49) Status:Active Family history of cerebral a neurysm: Grandmother(V17.1, Z82.49) Status:Active Family history of myocardial infarction: Grandfather(V17.3, Z82.49) Status:Active Denies Family history of mal ignant neoplasm of colon: Other(V16.0, Z80.0) Status: Unknown Family Member Name Dates Details Denies Family history of mal ignant neoplasm of colon: Other(V16.0, Z80.0) Status: Family history of myocardial infarction: Grandfather(V17.3, Z82.49) Status:Active Family history of cerebral a neurysm: Grandmother(V17.1, Z82.49) Status:Active Family history of hypertensi on: Grandmother(V17.49, Z82.49) Status:Active Supraventricular tachycardia by ECG: Mother Status:Active Summary Purpose Advance Directives No Advanced Directives Records FoundNo Advanced Directives Records FoundNo Advanced Directives Records FoundNo Advanced Directives Records FoundNo Advanced Directives Records Found Additional Source Comments INFORMATION SOURCE (unrecogn ized section and content) DATE CREATED AUTHOR AUTHOR'S ORGANIZ ATION 06/06/2020 [employer] DATE CREATED AUTHOR AUTHOR'S ORGANIZ ATION 07/13/2020 [facility] DATE CREATED AUTHOR AUTHOR'S ORGANIZ ATION 11/10/[address] [facility] DATE CREATED AUTHOR AUTHOR'S ORGANIZ ATION 01/19/2023 [facility] Source Comments (unrecognize d section and content) In the event this informatio n is protected by the Federal Confidentiality of Alcohol and Drug Abuse Patient Records regulations: The Federal rules restrict any use of the information to criminally investigate or prosecute any alcohol or drug abuse patient.[facility] Reason for Visit (unrecogniz ed section and content) Reason Comments Consult New ptReview labsFam cristian hx Kidney Disease Care Teams (unrecognized sec tion and content) Infantryman Relationship Specialty Start Date End Date Baylee Head MD [address] [place] [phone] PCP - Binta CUELLAR PCP 11/13/22 FOR RECORDS PERTAINING TO PATIENTS WHO ARE OR HAVE BEEN ENROLLED IN A CHEMICAL DEPENDENCY/SUBSTANCEABUSE PROGRAM, SOME INFORMATION MAY BE OMITTED. This clinical summary was aggregated from multiple sources. Caution should be exercised in using it in the provision of clinical care. This summary normalizes information from multiple sources, and as a consequence, information in this document may materially change the coding, format and clinical context of patient data. In addition, data may be omitted in some cases. CLINICAL DECISIONS SHOULD BE BASED ON THE PRIMARY CLINICAL RECORDS. [facility] [employer] [facility] provides no warranty or guarantee of the accuracy or completeness of information in this document.
[2023-04-13 01:07] LABS: Almond <0.10 kU/L (Class 0); Apple <0.10 kU/L (Class 0); Beef <0.10 kU/L (Class 0); Carrot <0.10 kU/L (Class 0); Chicken <0.10 kU/L (Class 0); Egg, White 0.51 kU/L (Class I); Egg, Whole 0.41 kU/L (Class I); Egg, Yolk 0.24 kU/L (Class 0/I); Garlic <0.10 kU/L (Class 0); Gluten <0.10 kU/L (Class 0); Milk (Cow) 0.21 kU/L (Class 0/I); Oat <0.10 kU/L (Class 0); Onion <0.10 kU/L (Class 0); Orange <0.10 kU/L (Class 0); Peach <0.10 kU/L (Class 0); Peanut 0.11 kU/L (Class 0/I); Pork <0.10 kU/L (Class 0); Potato, White <0.10 kU/L (Class 0); Rice <0.10 kU/L (Class 0); SESAME SEED <0.10 kU/L (Class 0); Soybean <0.10 kU/L (Class 0); Strawberry <0.10 kU/L (Class 0); Tuna <0.10 kU/L (Class 0); Turkey 0.38 kU/L (Class I); Wheat <0.10 kU/L (Class 0); Yeast <0.10 kU/L (Class 0)
== END | disposition home or self-care (01) ==
LOC: LAB 13:58
PROVIDERS: PCP Family Medicine; Referring Provider Otolaryngology Otolaryngology/Facial Plastic Surgery; Visit Provider Otolaryngology Otolaryngology/Facial Plastic Surgery
DX: T78.40XA Allergy, unspecified, initial encounter (principal); X58.XXXA Exposure to other specified factors, initial encounter
CPT/HCPCS: 36415; 86003

== ENCOUNTER → 2023-04-23 | Outpatient (CLI) | payer MEDICAID, SELFPAY ==
--- OUTSIDE RECORDS SUMMARY | 2023-04-23 16:10 | XMS RPT_ITS | CCD ---
Author Name Unknown Address [address] [place] [address] Organization [facility] Care Team Providers Care Floor Refinisher Name Role Phone Traci Gonsales Unavailable Unavailable Unknown, Referring Provider Unavailable Unav ailSusi Crocker Unavailable Unavailable Traci Gonsales Unavailable Unavailable Apollo Mccarty Unavailable Unavailable Baylee Head Unavailable Unavailable Unknown, Referring Provider Unavailable Unav ailMarie Parekh Unavailable Unavailable Baylee Head Unavailable Unavailable Unavailable [facility] Admitting Unava ilable [place] Attending Unava ilable [facility] Primary Care Unava ilable Rohini YOUSSEF, Douglas Osborne Unavailable [phone] Baylee Head MD Primary Care Provider BAYLEE HEAD Primary Care Unavailable ROSENDO NERI Attending Unavailable Baylee Head MD Unavailable SHIRIN BELLO Attending Unavailable Baylee Head MD Primary Care Provider Allergies Allergy Classification Reported Allergen(s) Allergy Type Date of Onset Reaction(s) Facility Penicillins (antibiotic) (2 sources) Penicillins; Translations: [Penicillins] Drug Allergy Other -[facility] Work Phone: (8 sources) Penicillins; Translations: [Penicillins] drug allergy 5 Other [facility] Repository (3 sources) Penicillins Propensity to adverse reactions to drug 5 Hives, Other [facility] Work Phone: (1 source) carvedilol Drug Allergy 9 Palpitations [facility] Medications Current Medications Medication Drug Class(es) Dates Sig (Normalized) Sig (Original) lisinopril 10 mg oral tablet (5 sources) Angiotensin Converting Enzyme Inhibitor take 1 [...] Date Documented Da te Episodic/Chronic Anxiety disorders (3 sources) Anxiety; Translations: [Anxiety disorder, unspecified] 04-22-2023 Chronic Cardiac dysrhythmias (5 sources) Paroxysmal supraventricular tachycardia; Translations: [Paroxysmal supraventricular tachycardia] Chronic Cardiac dysrhythmias (5 sources) Intermittent palpitations; Translations: [Palpitations] Episodic Chronic kidney disease (5 sources) Chronic kidney disease stage 2; Translations: [Chronic kidney disease, stage 2 (mild)] Onset: 4 04-08-2023 Chronic 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 (8 sources) Cognitive disorder; Translations: [Unspecified persistent mental disorders due to conditions classified elsewhere] Chronic Esophageal disorders (4 sources) Gastroesophageal reflux disease; Translations: [Esophageal reflux] Chronic Essential hypertension (6 sources) Hypertensive disorder; Translations: [Essential (primary) hypertension] Onset: 0 03-26-2011 Chronic Headache; including migraine (4 sources) Transformed migraine; Translations: [Chronic migraine with [...] [History of gastroesophageal reflux disease] Episodic Other nervous system disorders (1 source) Other symptoms and signs involving cognitive functions and awareness; Translations: [Other signs and symptoms involving cognition] 04-22-2023 Episodic Other nutritional; endocrine; and metabolic disorders (4 sources) Simple obesity ; Translations: [Obesity, unspecified] Chronic Other nutritional; endocrine; and metabolic disorders (1 source) Obese class I; Translations: [Obesity, unspecified] Onset: 3 07-06-2012 Chronic Screening and history of mental health and substance abuse codes (16 sources) H/O: anxiety state; Translations: [H/O: depression] Resolved: 0 Episodic Unclassified (1 source) Chronic migraine with aura, not intractable, without status migrainosus; Translations: [Chronic migraine with aura, not intractable, without status migrainosus] Onset: 4 Past or Other Problems Problem Classification Problem [...] [Joint disorder, unspecified] Onset: 04-13-2011 04-13-2011 Episodic Unclassified (1 source) Chronic migraine with aura, not intractable, without status migrainosus; Translations: [Chronic migraine with aura, not intractable, without status migrainosus] Onset: 04-08-2023 Unclassified (1 source) Onset: 04-22-2023 04-22-2023 NEGATED: Highlighted row has not occurred!Residual codes; unclassified (20 sources) Disease Episodic Results Test Name Value Interpretation Reference Range Facil ity Vital Signs Date Time Vital Sign Value Performing Clinician Facility 04-22-2023 09:59-0500 Body height 165.1 cm Traci Gonsales MD Work Phone: [facility] 04-22-2023 09:59-0500 Body mass index (BMI) [Ratio] 34.45 kg/m2 Traci Gonsales MD Work Phone: [phone] [place] [address] 04-22-2023 09:59-0500 Body temperature 98.2 [degF] Traci Gonsales MD Work Phone: [facility] 04-22-2023 09:59-0500 Body weight 93.89 kg Traci Gonsales MD Work Phone: [facility] 04-22-2023 09:59-0500 Diastolic blood pressure 90 mm[Hg] Traci Gonsales MD Work Phone: [facility] 04-22-2023 09:59-0500 Heart rate 80 /min Traci Gonsales MD Work Phone: [facility] 04-22-2023 09:59-0500 Respiratory rate 20 /min Traci Gonsales MD Work Phone: [facility] 04-22-2023 09:59-0500 Systolic blood pressure 130 mm[Hg] Traci Gonsales MD Work Phone: [facility] 04-08-2023 10:14-0500 Body height 165.1 cm Shirin Bello DO Work Phone: [facility] 04-08-2023 10:14-0500 Body mass index (BMI) [Ratio] 35.15 kg/m2 Shirin Young DO Work Phone: [facility] 04-08-2023 10:14-0500 Body weight 95.8 kg Shirin Bello DO Work Phone: [facility] 04-08-2023 10:14-0500 Diastolic blood pressure 84 mm[Hg] Shirin Bello DO Work Phone: [facility] 04-08-2023 10:14-0500 Heart rate 78 /min Shirin Bello DO Work Phone: [facility] 04-08-2023 10:14-0500 Systolic blood pressure 132 mm[Hg] Shirin Bello DO Work Phone: [facility] 08-27-2022 15:46-0400 Body height 165.1 cm Rosendo Neri MD Work Phone: [facility] 08-27-2022 15:46-0400 Body temperature 97.3 [degF] Rosendo Neri MD Work Phone: [facility] 08-27-2022 15:46-0400 Body weight 108.41 kg Rosendo Neri MD Work Phone: [facility] 08-27-2022 15:46-0400 Diastolic blood pressure 88 mm[Hg] Rosendo Neri MD Work Phone: [facility] 08-27-2022 15:46-0400 Heart rate 79 /min Rosendo Neri MD Work Phone: [facility] 08-27-2022 15:46-0400 SaO2% (BldA) [Mass fraction] 99 % Rosendo Neri MD Work Phone: [facility] 08-27-2022 15:46-0400 Systolic blood pressure 116 mm[Hg] Rosendo Neri MD Work Phone: [facility] 10-05-2019 16:19-0400 BMI (Body Mass Index) 42.27 kg/m2 Marie Bass [facility] Work Phone: 10-05-2019 16:19-0400 Body weight 115.21 kg Marie Bass [facility] Work Phone: 10-05-2019 16:19-0400 BSA (Body Surface Area) 2.19 m2 Marie Bass [facility] Work Phone: 10-05-2019 16:19-0400 Height 165.1 cm Marie Bass [facility] Work Phone: 02-22-2019 11:45-0500 BMI (Body Mass Index) 42.27 kg/m2 Traci oGnsales [facility]aura [address] DO Work Phone: 02-22-2019 11:45-0500 Body weight 115.21 kg Traci Gonsales [facility] ur[facility] 170 DO Work Phone: 02-22-2019 11:45-0500 BP Diastolic 90 mm[Hg] Traci Gonsales MPLP-Fprhwygqe-Cid urvashi 170 DO Work Phone: Encounters Encounter Date Encounter Type Care Provider Facility Start: 04-22-2023 End: 04-22-2023 Office consultation new/estab patient 80 min Traci Gonsales MD Work Phone: [facility] Procedures Date Procedure Procedure Detail Performing Clinician Start: 06-05-2020 Follow-up visit Start: 10-26-2019 Follow-up visit Start: 10-05-2019 Follow-up visit Start: 09-25-2019 Endoscopy - Upper GI Mo eulogio Bass Start: 09-19-2019 Follow-up visit Start: 02-22-2019 MRI Brain w/wo Contrast Traci Gonsales NEGATED: Highlighted row has not occurred! Colonoscopy Baylee Head Work Phone: Plan of Treatment Date Care Activity Detail Author Start: 10-19-2033 Zoster Vaccines (1 of 2) Zoster Vaccines (1 of 2) [facility] Start: 05-04-2023 End: 05-04-2023 Patient encounter procedure 05/04/2023 1:30 PM EST Office Visit [facility] [address] [place] [address] Shelly Bello, CLINICAL PROVIDER TRAINER-OUTSOLE SPLICER, DNP [address] [place] [address] [facility] Start: 04-22-2023 End: 04-22-2024 Electroencephalogram EEG Neurology Routine Cognitive change Expected: 04/22/2023 (Approximate), Expires: 04/22/2024 [facility] Service Area Work Phone: Immunizations Immunization Date Immunization Notes Care Provider Fa cility 07-06-2012 tetanus toxoid, redu maricarmen diphtheria toxoid, and acellular pertussis vaccine, adsorbed Rosendo Neri MD Work Phone: [facility] Work Phone: Payers Date Payer Category Payer Medicaid [employer] [id number] 2022-Present [phone] [address] [place] [address] Medicaid [id number] 2018 Medicaid [id number] 2018 Unknown 1985 Unknown [id number] Social History Date Type Detail Facility Assertion Unknown if ever smoked [facility]aura 170 DO Work Phone: Start: 04-08-2023 End: 04-22-2023 No alcohol use No alcohol use [facility] Work Phone: Functional Status Date Assessment Result Facility NEGATED: Highlighted row Functional performance Functional status health issues are not documented Disease EA-Kxalssoqn-Eodkmw 170 DO Work Phone: Mental Status Date Assessment Result Facility NEGATED: Highlighted row Cognitive function [Interpretation] Cognitive status health issues are not documented Disease DW-Jfljhulnx-Gngmrp 170 DO Work Phone: History of Present illness Narrative 04-22-2023 Traci Gonsales MD - 04/22/2023 10:00 AM EST Note Date & Type Note Facility 04-22-2023 History of Present illness Narrative Prescription refills ran out. Last visit 06-05-2020. Got too busy to follow up Had been on Tizanidine, Topomax, Sumatriptan, rizatriptan. Does not remember impact of these meds for her. Tried magnesium which gave anxiety. Past month increased to daily headache. Pain ranges 3-8/10, Currently dull 3/10 ache. Pain is across forehead with cognitive fog. When more severe causes blurred vision and double vision. Feels sinus congestion, ear tinnitus right ear. On and off throughout the day. Some days worse than others. Associated nausea, nerves jittery , light sensitivity. Was taking 200mg Ibuprofen but was not helpful. Is being followed by Nephrology for ckd Every morning has right eye zig zag line for years. 2 instances at work in afternoon and saw the zig zag line with peripheral vision change. Took ibuprofen and subsided. Prior to past 6 weeks, was not having many migraine or headache unless she had a headache from allergies. More when cloudy or rainy. Recently tested for food and environmental allergy with Interface Engineer. Dr Dio Mccray. Milk proteins, eggs, peanut butter, tomatoes, turkey meat Dust, Dust mites, ragweed worst and others not as severe. Wants to immune me to it with weekly shots. Wants her to take Zyrtec or monika daily but has not started. Wonders if headaches just allergies. Concerned about blurred vision. Saw Eye MD and no pressure behind eye. Mom had a brain aneurysm clipped. Is concerned about aneurysm or tumor. Also endorses brain farts or confusion past 2 months. Forgetting what she is doing in the middle Currently working on computer. Has blue light assist. 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 Sees PCP tomorrow for all around not feeling great and low energy as well as update on allergies. Meds tried Propranolol- improved cognitive fog but not migraine Verapamil GERD symptoms Eletritpan- no memory of impact Tizanidine ? Topamax- does not remember if started after last visit 06-05-2020 Had been doing natural therapy with magnesium and Co q 10 documented in this encounter [facility] Work Phone: Instructions 04-22-2023 Patient Instructions Note Date & Type Note Facility 04-22-2023 Instructions Traci Gonsales MD - 04/22/2023 10:00 AM EST You are very concerned about taking medications so we can go the more natural route Keep taking the magnesium, and coq 10 as you are. B vitamins 100% can also be helpful. I have prescribed propranolol for your anxiety I sent in Amerge to treat your headaches try to stay away from the obuprofen bc of you kidneys. documented in this encounter [facility] Work Phone: History of Present illness Narrative 04-08-2023 Shirin Bello DO - 04/08/2023 10:30 AM EST Note [...] HTN: Well controlled Migraines NSAID Use Obesity Shirin Bello DO 04/08/23 10:20 AM documented in this encounter [facility] Work Phone: Progress note 08-28-2022 Note Date & Type Note Facility 08-28-2022 Note HNO ID: [id number] Author: Rosendo Neri MD Service: ? Author Type: Physician Type: Progress Notes Filed: 08/28/2022 8:33 AM Note Text: HISTORY AND PHYSICAL Gaviota Nam Ameya 1985 REFERRING PHYSICIAN: No ref. provider found [...] MEDICAL PROBLEMS: PAST MEDICAL HISTORY Diagnosis Date 2016 CHF (congestive heart failure) ([facility]) Sees [facility] Generalized anxiety disorder GERD (gastroesophageal reflux disease) Hiatal hernia Hypertension Hypothyroidism Impaired fasting blood sugar 2016 PIH ( induced hypertension) Stented coronary artery 2017 [facility] OPERATIONS: PAST SURGICAL HISTORY Procedure Laterality Date [...] (FLONASE) 50 mcg/actuation nasal spray Use 1 Atkinson in each nostril daily at bedtime. (Patient not taking: Reported on 08/27/2022) 18.2 mL 0 hydroCHLOROthiazide 12.5 mg capsule Take 12.5 mg by mouth once daily. (Patient not taking: No sig reported) Zzgaeaz-Wxnvmkxdlamzt-Jmdefsmg (MIGRAINE RELIEF) 250-250-65 mg per tablet Take [...] Grandmother Stroke Maternal Grandmother Heart Maternal Grandfather SD; stent, CABG Diabetes Paternal Grandmother Stroke Paternal Grandmother Hypertension Maternal Aunt REVIEW OF SYMPTOMS: The review of systems data was entered by the nurse and reviewed by id Nursing Notes: Rosy Gonzales LPN 08/27/2022 3:55 [...] cough, denies pulmona (more content not included)... [facility] History of Present illness Narrative 08-28-2022 [...] MEDICAL PROBLEMS: PAST MEDICAL HISTORY Diagnosis Date 2016 CHF (congestive heart failure) ([facility]) Sees [facility] Generalized anxiety disorder GERD (gastroesophageal reflux disease) Hiatal hernia Hypertension Hypothyroidism Impaired fasting blood sugar 2016 PIH ( induced hypertension) Stented coronary artery 2017 Sees [facility] OPERATIONS: PAST SURGICAL HISTORY Procedure [...] (FLONASE) 50 mcg/actuation nasal spray Use 1 Atkinson in each nostril daily at bedtime. (Patient not taking: Reported on 08/27/2022) 18.2 mL 0 hydroCHLOROthiazide 12.5 mg capsule Take 12.5 mg by mouth once daily. (Patient not taking: No sig reported) Mnpvirq-Mxxpxjvqzkhka-Pnbskgec (MIGRAINE RELIEF) 250-250-65 mg per tablet Take [...] Grandmother Stroke Maternal Grandmother Heart Maternal Grandfather SD; stent, CABG Diabetes Paternal Grandmother Stroke Paternal Grandmother Hypertension Maternal Aunt REVIEW OF SYMPTOMS: The review of systems data was entered by the nurse and reviewed by id Nursing Notes: Rosy Gonzales LPN 08/27/2022 3:55 [...] screening? N/A Last Colonoscopy: no prior Rosy Brown, SAIL REPAIRER PHYSICAL EXAMINATION: General: The patient is 36 [...] Rosendo Neri MD documented in this encounter [facility] Nurse Note 08-27-2022 Rosy Gonzales LPN - 08/27/2022 3:51 PM EDT Note Date [...] Rosy Gonzales LPN documented in this encounter [facility] Evaluation note Note Date & Type Note Facility documented in this encounter [facility] Evaluation note Note Date & Type Note Facility documented in this encounter [facility] Work Phone: Evaluation note Note Date & Type Note Facility documented in this encounter [facility] Work Phone: Reason for referral (narrative) Consultation (Routine) - Authorized Note Date & Type Note Facility Referral ID Status Reason Start Date Expiration Date V isits Requested Visits Authorized [id number] Authorized 04/08/2023 04/07/2024 1 1 * Imaging (Routine) - Authorized Specialty Diagnoses / Procedures Referred By Freddy cisneros Referred To Contact Radiology Diagnoses Chronic kidney disease, stage 2 (mild) Procedures US renal complete Shirin Bello DO [address] [place] [address] Referral ID Status Reason Start Date Expiration Date Visits Requested Visits Authorized [id number] Authorized Perform Procedure 04/08/2023 04/07/2024 1 1 [facility] Work Phone: Family History Grandmother Name Dates [...] Directives Records FoundNo Advanced Directives Records Found Reason for Referral Specialty Diagnoses / Procedures Referred By Contac t Referred To Contact Diagnoses Cognitive change Procedures EEG Traci Gonsales MD [address] [address] Referral ID Status Reason Start Date Expiration Date V isits Requested Visits Authorized [id number] Pending Review 04/22/2023 04/21/2024 1 1 Additional Source Comments INFORMATION SOURCE (unrecogn ized section and content) DATE CREATED AUTHOR AUTHOR'S ORGANIZ ATION 06/06/2020 [facility] DATE CREATED AUTHOR AUTHOR'S ORGANIZ ATION 07/13/2020 [facility] DATE CREATED AUTHOR AUTHOR'S ORGANIZ ATION 11/10/2020 [facility] DATE CREATED AUTHOR AUTHOR'S ORGANIZ ATION 01/19/[address] [facility] DATE CREATED AUTHOR AUTHOR'S ORGANIZ ATION 04/11/2023 [facility] Source Comments (unrecognize d section and content) In the event this informatio n is protected by the Federal Confidentiality of Alcohol and Drug Abuse Patient Records regulations: The Federal rules restrict any use of the information to criminally investigate or prosecute any alcohol or drug abuse patient.[facility] Reason for Visit (unrecogniz ed section and content) Reason Comments Consult New ptReview labsFam cristian hx Kidney Disease Reason Comments Migraine Re establish care Care Teams (unrecognized sec tion and content) Floor Refinisher Relationship Specialty Start Date End Date Baylee Head MD [address] [place] [phone] PCP - [facility] PCP 11/13/22 Floor Refinisher Relationship Specialty Start Date End Date Baylee Head MD [address] [place] [phone] PCP - [facility] PCP 11/13/22 Baylee Head MD [address] [place] [phone] PCP - General Family Medicine 04/22/23 FOR RECORDS PERTAINING TO PATIENTS WHO ARE [...] BE BASED ON THE PRIMARY CLINICAL RECORDS. [facility]. provides no warranty or guarantee of the accuracy or completeness of information in this document.
[2023-04-23 17:29] LABS: Magnesium 2.5 mg/dL (1.6-2.6)
[2023-04-23 17:36] LABS: Vitamin D,25 Hydroxy 37.5 ng/mL
== END | disposition home or self-care (01) ==
LOC: BIMLAB 14:37
PROVIDERS: PCP Family Medicine; Visit Provider Family Medicine
DX: G43.909 Migraine, unspecified, not intractable, without status migrainosus (principal); E55.9 Vitamin D deficiency, unspecified
CPT/HCPCS: 36415; 82306; 83735

== ENCOUNTER → 2023-04-30 | Outpatient (CLI) | payer MEDICAID, SELFPAY ==
--- NOTE | 2023-04-30 15:23 | US_ITS ---
STUDY: RENAL ULTRASOUND - COMPLETE REASON FOR EXAM: Female, 37 years old. CKD, STAGE 2 TECHNIQUE: Ultrasound evaluation of the kidneys was performed with real-time and static deshpande-scale imaging. COMPARISON: None. FINDINGS: RIGHT KIDNEY: Normal location of the right kidney, which is normal in size. The right kidney measures 11.9 x 5.2 x 5.2 cm. Diffusely increased cortical echoes. There is no right renal mass or cyst. There are no right renal calculi. There is no right hydronephrosis. DISTAL RIGHT URETER: There is non-visualization of the distal right ureter. There is no demonstrated right ureterovesical junction calculus. There is a visualized right ureteral jet. LEFT KIDNEY: Normal location of the left kidney, which is normal in size. The left kidney measures 10.9 x 4.8 x 5 cm. Diffusely increased cortical echoes. There is no left renal mass or cyst. There are no left renal calculi. There is no left hydronephrosis. DISTAL LEFT URETER: There is non-visualization of the distal left ureter. There is no demonstrated left ureterovesical junction calculus. There is a visualized left ureteral jet. BLADDER: The distended urinary bladder has a volume of 45.8 ml. There is no demonstrated mass within the urinary bladder. There are no demonstrated bladder calculi. US/Kidney and Bladder IMPRESSION: Findings consistent with nonspecific renal parenchymal disease. No evidence for obstruction. Electronically Signed: Layo Tam MD at 17:05 EST ,
--- OUTSIDE RECORDS SUMMARY | 2023-04-30 17:20 | XMS RPT_ITS | CCD ---
Author Name Unknown Address [address] [place] [address] Organization [facility] Care Team Providers Care Last Dipper Name Role Phone Traci Christianson Unavailable Unavailable Unknown, Referring Provider Unavailable Unav ailSusi Crocker Unavailable Unavailable Traci Christianson Unavailable Unavailable Apollo Mccarty Unavailable Unavailable Baylee Head Unavailable Unavailable Unknown, Referring Provider Unavailable Unav Marie Cheung Unavailable Unavailable Baylee Head Unavailable Unavailable Unavailable [facility] Admitting Unava ilable [facility] Attending Unava ilable [facility] Primary Care Unava ilable Rohini YOUSSEF, Douglas Osborne Unavailable Baylee Head MD Primary Care Provider BAYLEE HEAD Primary Care Unavailable ROSENDO NERI Attending Unavailable Baylee Head MD Unavailable [phone] Baylee Head MD Primary Care Provider SHIRIN BELLO Attending Unavailable TRACI CHRISTIANSON Attending Unavailable BAYLEE HEAD Primary Care Unavaildona kumar Allergies Allergy Classification Reported Allergen(s) Allergy Type Date of Onset Reaction(s) Facility Penicillins (antibiotic) (2 sources) Penicillins; Translations: [Penicillins] Drug Allergy Other [facility] Work Phone: (8 sources) Penicillins; Translations: [Penicillins] drug allergy 5 Other [facility] [place] [facility] (3 sources) Penicillins Propensity to adverse reactions to drug 5 Hives, Other [facility] Work Phone: (2 sources) carvedilol; Translations: [CARVEDILOL] Drug Allergy 9 Palpitations [facility] Medications Current Medications Medication Drug Class(es) Dates [...] Date Documented Da te Episodic/Chronic Anxiety disorders (5 sources) Anxiety; Translations: [Anxiety disorder, unspecified] Onset: 4 04-22-2023 Chronic Cardiac dysrhythmias (5 sources) Paroxysmal [...] Onset: 0 03-26-2011 Chronic Headache; including migraine (6 sources) Transformed migraine; Translations: [Chronic migraine with [...] reflux disease] Episodic Other nervous system disorders (3 sources) Other symptoms and signs involving cognitive functions and awareness; Translations: [Other signs and symptoms involving cognition] Onset: 4 04-22-2023 Episodic Other nutritional; endocrine; and metabolic [...] Onset: 04-13-2011 04-13-2011 Episodic Unclassified (1 source) Onset: 04-22-2023 04-22-2023 Unclassified (1 source) Chronic migraine with aura, not intractable, without status migrainosus; Translations: [Chronic migraine with aura, not intractable, without status migrainosus] Onset: 04-08-2023 NEGATED: Highlighted row has not occurred!Residual codes; unclassified (20 sources) Disease Episodic Results Test Name Value Interpretation Reference Range Facil ity Vital Signs Date Time Vital Sign Value Performing Clinician Facility 04-22-2023 09:59-0500 Body height 165.1 cm Traci Christianson MD Work Phone: [facility] 04-22-2023 09:59-0500 Body mass index (BMI) [Ratio] 34.45 kg/m2 Traci Christianson MD Work Phone: [facility] 04-22-2023 09:59-0500 Body temperature 98.2 [degF] Traci Christianson MD Work Phone: [facility] 04-22-2023 09:59-0500 Body weight 93.89 kg Traci Christianson MD Work Phone: [facility] 04-22-2023 09:59-0500 Diastolic blood pressure 90 mm[Hg] Traci Christianson MD Work Phone: [facility] 04-22-2023 09:59-0500 Heart rate 80 /min Traci Christianson MD Work Phone: [facility] 04-22-2023 09:59-0500 Respiratory rate 20 /min Traci Christianson MD Work Phone: [facility] 04-22-2023 09:59-0500 Systolic blood pressure 130 mm[Hg] Traci Christianson MD Work Phone: [facility] 04-08-2023 10:14-0500 Body height 165.1 cm Shirin Bello DO Work Phone: [facility] 04-08-2023 10:14-0500 Body mass index (BMI) [Ratio] 35.15 kg/m2 Shirin Bello DO Work Phone: [facility] 04-08-2023 10:14-0500 Body weight 95.8 kg Shirin Bello DO Work Phone: [facility] 04-08-2023 10:14-0500 Diastolic blood pressure 84 mm[Hg] Shirin Young DO Work Phone: [facility] 04-08-2023 10:14-0500 Heart rate 78 /min Shirin Bello DO Work Phone: [facility] 04-08-2023 10:14-0500 Systolic blood pressure 132 mm[Hg] Shirin Bello DO Work Phone: [facility] 08-27-2022 15:46-0400 Body height 165.1 cm Rosendo Neri MD Work Phone: [facility] 08-27-2022 15:46-0400 Body temperature 97.3 [degF] Rosendo Neri MD Work Phone: [facility] 08-27-2022 15:46-0400 Body weight 108.41 kg Rosendo Neri MD Work Phone: [facility] 08-27-2022 15:46-0400 Diastolic blood pressure 88 mm[Hg] Rosendo Neri MD Work Phone: [facility] 08-27-2022 15:46-0400 Heart rate 79 /min Rosendo Neri MD Work Phone: [facility] 08-27-2022 15:46-0400 SaO2% (BldA) [Mass fraction] 99 % Rosendo Neri MD Work Phone: [facility] 08-27-2022 15:46-0400 Systolic blood pressure 116 mm[Hg] Rosendo Neri MD Work Phone: [facility] 10-05-2019 16:19-0400 BMI (Body Mass Index) 42.27 kg/m2 [facility] Work Phone: 10-05-2019 16:19-0400 Body weight 115.21 kg Marie Bass [facility] Work Phone: 10-05-2019 16:19-0400 BSA (Body Surface Area) 2.19 m2 Marie Maliky [facility] Work Phone: 10-05-2019 16:19-0400 Height 165.1 cm Marie Bass [facility] Work Phone: 02-22-2019 11:45-0500 BMI (Body Mass Index) 42.27 kg/m2 Traci Christianson MP-Neurolo gy-Laura 170 DO Work Phone: 02-22-2019 11:45-0500 Body weight 115.21 kg Traci Christianson MPDW-Fnonqhftn-Bca urvashi 170 DO Work Phone: 02-22-2019 11:45-0500 BP Diastolic 90 mm[Hg] Traci Christianson MPYB-Ijxbhedpr-Wph urvashi 170 DO Work Phone: Encounters Encounter Date Encounter Type Care Provider Facility Start: 04-22-2023 End: 04-22-2023 ambulatory TRACI CHRISTIANSON [facility] Start: 04-22-2023 End: 04-22-2023 Office consultation new/estab patient 80 min Traci Christianson MD Work Phone: [facility] Procedures Date Procedure Procedure Detail Performing Clinician Start: 06-05-2020 Follow-up visit Start: 10-26-2019 Follow-up visit Start: 10-05-2019 Follow-up visit Start: 09-25-2019 Endoscopy - Upper GI Tyler Bass Start: 09-19-2019 Follow-up visit Start: 02-22-2019 MRI Brain w/wo Contrast Traci Christianson NEGATED: Highlighted row has not occurred! Colonoscopy Baylee Head Work Phone: Plan of Treatment Date Care Activity Detail Author Start: 10-19-2033 Zoster Vaccines (1 of 2) Zoster Vaccines (1 of 2) [facility] Start: 05-04-2023 End: 05-04-2023 Patient encounter procedure 05/04/2023 1:30 PM EST Office Visit [facility] [address] [place] [id number] Shelly Bello, BEHAVIORAL MODIFICATION ASSISTANT-MEDICAL INTERN, DNP [address] [place] [address] [facility] Start: 04-22-2023 End: 04-22-2024 Electroencephalogram EEG Neurology Routine Cognitive change Expected: 04/22/2023 (Approximate), Expires: 04/22/2024 [facility] Service Area Work Phone: Immunizations Immunization Date Immunization Notes Care Provider Fa cilipaulino 07-06-2012 tetanus toxoid, redu maricarmen diphtheria toxoid, and acellular pertussis vaccine, adsorbed Rosendo Neri MD Work Phone: [facility] Work Phone: Payers Date Payer Category Payer Medicaid [employer] [id number] 2022-Present [phone] [address] [place] [address] Medicaid [id number] 2018 Medicaid [id number] 2018 Unknown 1985 Unknown [id number] 1985 Unknown [id number] Social History Date Type Detail Facility Assertion Unknown if ever smoked MP-Ne urology-Laura 170 DO Work Phone: Start: 04-08-2023 End: 04-22-2023 No alcohol use No alcohol use -[facility] Work Phone: Functional Status Date Assessment Result Facility NEGATED: Highlighted row Functional performance Functional status health issues are not documented Disease DC-Iifcgxyvi-Bnyuua 170 DO Work Phone: Mental Status Date Assessment Result Facility NEGATED: Highlighted row Cognitive function [Interpretation] Cognitive status health issues are not documented Disease KB-Okncuzfds-Hizkrn 170 DO Work Phone: History of Present illness Narrative 04-22-2023 Traci Christianson MD - 04/22/2023 10:00 AM EST Note [...] tested for food and environmental allergy with Contract Driver. Dr Dio Mccray. Milk proteins, eggs, peanut [...] Has blue light assist. 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 Sees PCP tomorrow for all around not [...] this encounter [facility] Work Phone: Instructions 04-22-2023 Patient Instructions Note Date & Type Note Facility 04-22-2023 Instructions Traci Christianson MD - 04/22/2023 10:00 AM EST You [...] this encounter [facility] Work Phone: History of Present illness Narrative 04-08-2023 Shirin Bello DO - 04/08/2023 10:30 AM EST Note Date & Type Note Facility 04-08-2023 History of Present illness Narrative Subjective She states she drinks lots of water She has lost weight Urinates a lot On Lisinopril On Ibuprofen. Takes Frequently. Has Migraines Patient ID: Gaviota Kiser is a 37 y.o. female who presents [...] this encounter [facility] Work Phone: Progress note 08-28-2022 Note Date & Type Note Facility 08-28-2022 Note HNO ID: [id number] Author: Rosendo Neri MD Service: ? Author Type: Physician Type: Progress Notes Filed: 08/28/2022 8:33 AM Note Text: HISTORY AND PHYSICAL Gaviota Kiser 1985 REFERRING PHYSICIAN: No ref. provider found [...] Diagnosis Date 2016 CHF (congestive heart failure) ([facility]) Sees [facility] Generalized anxiety disorder GERD (gastroesophageal reflux disease) Hiatal hernia Hypertension Hypothyroidism Impaired fasting blood sugar 2016 PIH ( induced hypertension) Stented coronary artery 2017 Sees [facility] OPERATIONS: PAST SURGICAL HISTORY Procedure [...] (FLONASE) 50 mcg/actuation nasal spray Use 1 [place] in each nostril daily at bedtime. (Patient not taking: Reported on 08/27/2022) 18.2 mL 0 hydroCHLOROthiazide 12.5 mg capsule Take 12.5 mg by mouth once daily. (Patient not taking: No sig reported) Flzjyju-Upzzbksgpshdh-Sieqpvxl (MIGRAINE RELIEF) 250-250-65 mg per tablet Take [...] Grandmother Stroke Maternal Grandmother Heart Maternal Grandfather NH; stent, CABG Diabetes Paternal Grandmother Stroke Paternal Grandmother Hypertension Maternal Aunt REVIEW OF SYMPTOMS: The review of systems data was entered by the nurse and reviewed by pr Nursing Notes: Rosy Gonzales LPN 08/27/2022 3:55 [...] cough, denies pulmona (more content not included)... [facility] History of Present illness Narrative 08-28-2022 Rosendo Neri MD - 08/28/2022 8:30 AM EDT Note Date & Type Note Facility 08-28-2022 History of Presen t illness Narrative HISTORY AND PHYSICAL Gaviota Kiser 1985 REFERRING PHYSICIAN: No ref. provider found [...] Diagnosis Date 2016 CHF (congestive heart failure) ([facility]) Sees [facility] Generalized anxiety disorder GERD (gastroesophageal reflux disease) Hiatal hernia Hypertension Hypothyroidism Impaired fasting blood sugar 2016 PIH ( induced hypertension) Stented coronary artery 2017 [facility] OPERATIONS: PAST SURGICAL HISTORY Procedure [...] (FLONASE) 50 mcg/actuation nasal spray Use 1 [place] in each nostril daily at bedtime. (Patient not taking: Reported on 08/27/2022) 18.2 mL 0 hydroCHLOROthiazide 12.5 mg capsule Take 12.5 mg by mouth once daily. (Patient not taking: No sig reported) Igvtptu-Kelpjnytatlzl-Uqnbdhge (MIGRAINE RELIEF) 250-250-65 mg per tablet Take [...] Grandmother Stroke Maternal Grandmother Heart Maternal Grandfather NH; stent, CABG Diabetes Paternal Grandmother Stroke Paternal Grandmother Hypertension Maternal Aunt REVIEW OF SYMPTOMS: The review of systems data was entered by the nurse and reviewed by pr Nursing Notes: Rosy Gonzales LPN 08/27/2022 3:55 [...] Rosendo Neri MD documented in this encounter [facility] Nurse Note 08-27-2022 Rosy Gonzales [...] Rosy Gonzales LPN documented in this encounter [facility] Evaluation note Note Date & Type Note Facility documented in this encounter [facility] Evaluation note Note Date & Type Note Facility documented in this encounter [facility] Work Phone: Evaluation note Note Date & Type Note Facility documented in this encounter [facility] Work Phone: Reason for referral (narrative) Consultation (Routine) - Authorized Note Date & Type Note Facility Referral ID Status Reason Start Date Expiration Date V isits Requested Visits Authorized [id number] Authorized 04/08/2023 04/07/2024 1 1 * Imaging (Routine) - Authorized Specialty Diagnoses / Procedures Referred By Freddy cisneros Referred To Contact Radiology Diagnoses Chronic kidney disease, stage 2 (mild) Procedures US renal complete Shirin Bello DO [address] [place] [address] Referral ID Status Reason Start Date Expiration Date Visits Requested Visits Authorized [id number] Authorized Perform Procedure 04/08/2023 04/07/2024 1 1 [facility] Work Phone: Family History No Family History Records Found Grandmother Name Dates Details Family history of [...] Contact Diagnoses Cognitive change Procedures EEG Traci Christianson MD [address] [address] Referral ID Status Reason Start Date Expiration Date V isits Requested Visits Authorized [id number] Pending Review 04/22/2023 04/21/2024 1 1 Additional Source Comments INFORMATION SOURCE (unrecogn ized section and content) DATE CREATED AUTHOR AUTHOR'S ORGANIZ ATION 06/06/2020 [facility] DATE CREATED AUTHOR AUTHOR'S ORGANIZ ATION 07/13/2020 [facility] DATE CREATED AUTHOR AUTHOR'S ORGANIZ ATION 11/10/2020 [facility] DATE CREATED AUTHOR AUTHOR'S ORGANIZ ATION 01/19/2023 [facility] DATE CREATED AUTHOR AUTHOR'S ORGANIZ ATION 04/26/2023 [facility] Source Comments (unrecognize d section and content) In the event this informatio n is protected by the Federal Confidentiality of Alcohol and Drug Abuse Patient Records regulations: The Federal rules restrict any use of the information to criminally investigate or prosecute any alcohol or drug abuse patient.[facility] Reason for Visit (unrecogniz ed section and content) Reason Comments Consult New ptReview labsFam cristian hx Kidney Disease Reason Comments Migraine Re establish care Care Teams (unrecognized sec tion and content) Last Dipper Relationship Specialty Start Date End Date Baylee Head MD [address] [address] [facility] 11/13/22 Last Dipper Relationship Specialty Start Date End Date Baylee Head MD [address] [place] [address] PCP - [facility] PCP 11/13/22 Baylee Head MD [address] [place] [address] PCP - General Family Medicine 04/22/23 FOR [...] BE BASED ON THE PRIMARY CLINICAL RECORDS. [facility]. provides no warranty or guarantee of the accuracy or completeness of information in this document.
== END | disposition home or self-care (01) ==
PROVIDERS: PCP Family Medicine; Referring Provider Internal Medicine; Visit Provider Internal Medicine
DX: N18.2 Chronic kidney disease, stage 2 (mild) (principal)
CPT/HCPCS: 76770

== ENCOUNTER → 2023-05-04 | Outpatient (CLI) | payer MEDICAID, SELFPAY ==
[2023-05-04 10:01] LABS: Bacteria 0 SEEN /hpf (None Seen); Mucous, Urine 0 SEEN /hpf (<or=2+); Red Blood Cells-Urine 0 SEEN /hpf (0-5); White Blood Cells 0 SEEN /hpf (0-5)
--- OUTSIDE RECORDS SUMMARY | 2023-05-04 10:34 | XMS RPT_ITS | CCD ---
Author Name Unknown Address [address] [place] [address] Organization [facility] Care Team Providers Care Car Tracer Name Role Phone Traci Christianson Unavailable Unavailable Unknown, Referring Provider Unavailable Unav ailSusi Crocker Unavailable Unavailable Traci Christianson Unavailable Unavailable Apollo Mccarty Unavailable Unavailable Baylee Head Unavailable Unavailable Unknown, Referring Provider Unavailable Unav Marie Cheung Unavailable Unavailable Baylee Head Unavailable Unavailable Unavailable [facility] Admitting Unava ilable [place], [facility] Attending Unava ilable [place], [facility] Primary Care Unava ilable Rohini YOUSSEF, Douglas Osborne Unavailable Baylee Head MD Primary Care Provider BAYLEE HEAD Primary Care Unavailable ROSENDO NERI Attending Unavailable Baylee Head MD Unavailable Baylee Head MD Primary Care Provider SHIRIN BELLO Attending Unavailable TRACI CHRISTIANSON Attending Unavailable BAYLEE HEAD Primary Care Unavaildona kumar Allergies Allergy Classification Reported Allergen(s) Allergy Type Date of Onset Reaction(s) Facility Penicillins (antibiotic) (2 sources) Penicillins; Translations: [Penicillins] Drug Allergy Other [facility] Work Phone: (8 sources) Penicillins; Translations: [Penicillins] drug allergy 5 Other [facility] [place] [facility] (3 sources) Penicillins Propensity to adverse reactions to drug 5 Hives, Other [facility] Work Phone: (2 sources) carvedilol; Translations: [CARVEDILOL] Drug Allergy 9 Palpitations [place] Medications Current Medications Medication Drug Class(es) Dates [...] 165.1 cm Traci Christianson MD Work Phone: [place] 04-22-2023 09:59-0500 Body mass index (BMI) [Ratio] 34.45 kg/m2 Traci Christianson MD Work Phone: [place] 04-22-2023 09:59-0500 Body temperature 98.2 [degF] Traci Christianson MD Work Phone: [place] 04-22-2023 09:59-0500 Body weight 93.89 kg Traci Christianson MD Work Phone: [place] 04-22-2023 09:59-0500 Diastolic blood pressure 90 mm[Hg] Traci Christianson MD Work Phone: [place] 04-22-2023 09:59-0500 Heart rate 80 /min Traci Christianson MD Work Phone: [place] 04-22-2023 09:59-0500 Respiratory rate 20 /min Traci Christianson MD Work Phone: [place] 04-22-2023 09:59-0500 Systolic blood pressure 130 mm[Hg] Traci Christianson MD Work Phone: [place] 04-08-2023 10:14-0500 Body height 165.1 cm Shirin Bello DO Work Phone: [place] 04-08-2023 10:14-0500 Body mass index (BMI) [Ratio] 35.15 kg/m2 Shirin Bello DO Work Phone: [place] 04-08-2023 10:14-0500 Body weight 95.8 kg Shirin Bello DO Work Phone: [place] 04-08-2023 10:14-0500 Diastolic blood pressure 84 mm[Hg] Shirin Young DO Work Phone: [place] 04-08-2023 10:14-0500 Heart rate 78 /min Shirin Bello DO Work Phone: [place] 04-08-2023 10:14-0500 Systolic blood pressure 132 mm[Hg] Shirin Bello DO Work Phone: [place] 08-27-2022 15:46-0400 Body height 165.1 cm Rosendo Neri MD Work Phone: [facility] 08-27-2022 15:46-0400 Body temperature 97.3 [degF] Rosendo Neri MD Work Phone: [facility] 08-27-2022 15:46-0400 Body weight 108.41 kg Rosendo Neri MD Work Phone: [facility] 08-27-2022 15:46-0400 Diastolic blood pressure 88 mm[Hg] Rosendo Neri MD Work Phone: [facility] 08-27-2022 15:46-0400 Heart rate 79 /min Rosendo Neri MD Work Phone: [facility] 08-27-2022 15:46-0400 SaO2% (BldA) [Mass fraction] 99 % Rosendo Neri MD Work Phone: [facility] 08-27-2022 15:46-0400 Systolic blood pressure 116 mm[Hg] Rosendo Neri MD Work Phone: [facility] 10-05-2019 16:19-0400 BMI (Body Mass Index) 42.27 kg/m2 Marie [facility]iky [facility] Work Phone: 10-05-2019 16:19-0400 Body weight 115.21 kg Marie Bass [facility] Work Phone: 10-05-2019 16:19-0400 BSA (Body Surface Area) 2.19 m2 Marie Maliky [facility] Work Phone: 10-05-2019 16:19-0400 Height 165.1 cm Marie Bass [facility] Work Phone: 02-22-2019 11:45-0500 BMI (Body Mass Index) 42.27 kg/m2 Traci Christianson [facility]-Neurolo gy-Laura 170 DO Work Phone: 02-22-2019 11:45-0500 Body weight 115.21 kg Traci Christianson MPKB-Llldpakxu-Hnq urvashi 170 DO Work Phone: 02-22-2019 11:45-0500 BP Diastolic 90 mm[Hg] Traci Christianson MPMO-Xdtmdvnry-Xey urvashi 170 DO Work Phone: Encounters Encounter Date Encounter Type Care Provider Facility Start: 04-22-2023 End: 04-22-2023 ambulatory TRACI CHRISTIANSON [facility] Start: 04-22-2023 End: 04-22-2023 Office consultation new/estab patient 80 min Traci Christianson MD Work Phone: [facility] Procedures Date Procedure Procedure Detail Performing [...] of 2) Zoster Vaccines (1 of 2) [place] Start: 05-04-2023 End: 05-04-2023 Patient encounter procedure 05/04/2023 1:30 PM EST Office Visit [facility] [address] [place] [id number] Shelly Bello, HOSTESS PARTY SALES REPRESENTATIVE-WAREHOUSE PERSON, DNP [address] [place] [address] [facility] Start: 04-22-2023 End: 04-22-2024 Electroencephalogram EEG Neurology Routine Cognitive change Expected: 04/22/2023 (Approximate), Expires: 04/22/2024 [facility] Service Area Work Phone: Immunizations Immunization Date Immunization Notes Care Provider Fa cilipaulino 07-06-2012 tetanus toxoid, redu maricarmen diphtheria toxoid, and acellular pertussis vaccine, adsorbed Rosendo Neri MD Work Phone: [facility] Work Phone: Payers Date Payer Category Payer Medicaid [employer] [id number] 2022-Present [phone] [address] [place] [address] Medicaid [id number] 2018 Medicaid [id number] 2018 Unknown 1983 Unknown [id number] 1983 Unknown [id number] Social History Date Type Detail Facility Assertion Unknown if ever smoked [facility]-Ne u[facility]-Laura 170 DO Work Phone: Start: 04-08-2023 End: 04-22-2023 No alcohol use No alcohol use -[facility] Work Phone: Functional Status Date Assessment Result Facility NEGATED: Highlighted row Functional performance Functional status health issues are not documented Disease JL-Tsxeqkqos-Texyuf 170 DO Work Phone: Mental Status Date Assessment Result Facility NEGATED: Highlighted row Cognitive function [Interpretation] Cognitive status health issues are not documented Disease LJ-Gdsxbrhqa-Jlqiim 170 DO Work Phone: History of Present [...] tested for food and environmental allergy with [employer]. Dr Dio Mccray. Milk proteins, eggs, peanut [...] Has blue light assist. 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 Sees PCP tomorrow for all around not feeling great and low energy as well as update on allergies. Meds tried Propranolol- improved cognitive fog but not migraine Verapamil GERD symptoms Eletritpan- no memory of impact Tizanidine ? Topamax- does not remember if started after last visit 06-05-2020 Had been doing natural therapy with magnesium and Co q 10 documented in this encounter [place] Work Phone: Instructions 04-22-2023 Patient Instructions Note [...] of you kidneys. documented in this encounter [place] Work Phone: History of Present illness Narrative [...] 04/08/23 10:20 AM documented in this encounter [place] Work Phone: Progress note 08-28-2022 Note Date & Type Note Facility 08-28-2022 Note HNO ID: [id number] Author: Rosendo Neri MD Service: ? Author [...] (congestive heart failure) ([facility]) Sees [facility] Generalized anxiety disorder GERD (gastroesophageal reflux disease) Hiatal hernia Hypertension Hypothyroidism Impaired fasting blood sugar 2016 PIH ( induced hypertension) Stented coronary artery 2017 Sees [facility] OPERATIONS: PAST SURGICAL HISTORY Procedure [...] (FLONASE) 50 mcg/actuation nasal spray Use 1 [place] in each nostril daily at bedtime. (Patient not taking: Reported on 08/27/2022) 18.2 mL 0 hydroCHLOROthiazide 12.5 mg capsule Take 12.5 mg by mouth once daily. (Patient not taking: No sig reported) Lpecuzb-Tivfssjpmvjyh-Jeflubbw (MIGRAINE RELIEF) 250-250-65 mg per tablet Take [...] Grandmother Stroke Maternal Grandmother Heart Maternal Grandfather OR; stent, CABG Diabetes Paternal Grandmother Stroke Paternal Grandmother Hypertension Maternal Aunt REVIEW OF SYMPTOMS: The review of systems data was entered by the nurse and reviewed by wy Nursing Notes: Rosy Gonzales LPN 08/27/2022 3:55 [...] cough, denies pulmona (more content not included)... [facility] History of Present illness Narrative 08-28-2022 [...] (congestive heart failure) ([facility]) Sees [facility] Generalized anxiety disorder GERD (gastroesophageal reflux disease) Hiatal hernia Hypertension Hypothyroidism Impaired fasting blood sugar 2016 PIH ( induced hypertension) Stented coronary artery 2017 [facility]es [facility] OPERATIONS: PAST SURGICAL HISTORY Procedure Laterality Date [...] (FLONASE) 50 mcg/actuation nasal spray Use 1 [place] in each nostril daily at bedtime. (Patient not taking: Reported on 08/27/2022) 18.2 mL 0 hydroCHLOROthiazide 12.5 mg capsule Take 12.5 mg by mouth once daily. (Patient not taking: No sig reported) Sfiawer-Tpzcohelxnpdc-Wvonbumi (MIGRAINE RELIEF) 250-250-65 mg per tablet Take [...] Grandmother Stroke Maternal Grandmother Heart Maternal Grandfather OR; stent, CABG Diabetes Paternal Grandmother Stroke Paternal Grandmother Hypertension Maternal Aunt REVIEW OF SYMPTOMS: The review of systems data was entered by the nurse and reviewed by wy Nursing Notes: Rosy Gonzales LPN 08/27/2022 3:55 [...] Rosendo Neri MD documented in this encounter [facility] Nurse Note 08-27-2022 Rosy Gonzales [...] Rosy Gonzales LPN documented in this encounter [facility] Evaluation note Note Date & Type Note Facility documented in this encounter [facility] Evaluation note Note Date & Type Note Facility documented in this encounter [place] Work Phone: Evaluation note Note Date & Type Note Facility documented in this encounter [place] Work Phone: Reason for referral (narrative) Consultation (Routine) - Authorized Note Date & Type Note Facility Referral ID Status Reason Start Date Expiration Date V isits Requested Visits Authorized [id number] Authorized 04/08/2023 04/07/2024 1 1 * Imaging (Routine) - Authorized Specialty Diagnoses / Procedures Referred By Freddy cisneros Referred To Contact Radiology Diagnoses Chronic kidney disease, stage 2 (mild) Procedures US renal complete Shirin Bello DO [address] [place] [address] Referral ID Status Reason Start Date Expiration Date Visits Requested Visits Authorized [id number] Authorized Perform Procedure 04/08/2023 04/07/2024 1 1 [place] Work Phone: Family History No Family History [...] EEG Traci Christianson MD [address] [address] Referral ID Status Reason Start Date Expiration Date V isits Requested Visits Authorized [id number] Pending Review 04/22/2023 04/21/2024 1 1 Additional Source Comments INFORMATION SOURCE (unrecogn ized section and content) DATE CREATED AUTHOR AUTHOR'S ORGANIZ ATION 06/06/2020 [employer] DATE CREATED AUTHOR AUTHOR'S ORGANIZ ATION 07/13/2020 [facility] DATE CREATED AUTHOR AUTHOR'S ORGANIZ ATION 11/10/2020 [facility] DATE CREATED AUTHOR AUTHOR'S ORGANIZ ATION 01/19/2023 [facility] DATE CREATED AUTHOR AUTHOR'S ORGANIZ ATION 04/26/2023 [facility] Ambulatory Source Comments (unrecognize d section and content) In the event this informatio n is protected by the Federal Confidentiality of Alcohol and Drug Abuse Patient Records regulations: The Federal rules restrict any use of the information to criminally investigate or prosecute any alcohol or drug abuse patient.[facility] Reason for Visit (unrecogniz ed section and content) Reason Comments Consult New ptReview labsFam cristian hx Kidney Disease Reason Comments Migraine Re establish care Care Teams (unrecognized sec tion and content) Car Tracer Relationship Specialty Start Date End Date Baylee Head MD [address] [place] [address] [facility] - [facility] [place] [facility] PCP 11/13/22 Car Tracer Relationship Specialty Start Date End Date Baylee Head MD [address] [place] [address] PCP - [facility] PCP 11/13/22 Baylee Head MD [address] [place] [address] PCP - General Family Medicine [...] BE BASED ON THE PRIMARY CLINICAL RECORDS. [employer] [facility]. provides no warranty or guarantee of the accuracy or completeness of information in this document.
[2023-05-04 12:24] LABS: Anion Gap 6 (5-15); BUN 20 mg/dL (7-18); BUN/Creat Ratio 24.2 RATIO (10-20); Calcium,Total 9.1 mg/dL (8.5-10.1); Chloride 105 mmol/L (98-107); Creatinine, Serum 0.83 mg/dL (0.55-1.02); EST Glomerular Filtration Rate 82 mL/min (>60); Est Glom Filt Rate - Afr Amer 99 mL/min (>60); Glucose 107 mg/dL (74-106); Potassium 4.7 mmol/L (3.5-5.1); Sodium Level 136 mmol/L (136-145)
[2023-05-04 12:34] LABS: Color, Urine Yellow (Yellow); Glucose, Dipstick Normal (Normal); Ketone-Dipstick Negative (Negative); Leukocyte Esterase-Dipstick Negative /ul (Negative); Nitrite-Dipstick Negative (Negative); Occult Blood-Urine Negative /ul (Negative); Protein-Dipstick 15 mg/dl (Negative); Urine Bilirubin Dipstick Negative (Negative); Urine Clarity Sl. Cloudy (Clear); Urine Urobilinogen Normal (Normal); Urine pH 6.5 (5.0 - 8.0)
[2023-05-04 12:43] LABS: Squamous Epithelial Cells - UA 0-5 SEEN /hpf (5-10)
[2023-05-04 12:53] LABS: Microalbumin,Random Urine 12.9 mg/L (NO RANGE EST.)
== END | disposition home or self-care (01) ==
LOC: BIMLAB 09:58
PROVIDERS: PCP Family Medicine; Visit Provider Internal Medicine
DX: N18.2 Chronic kidney disease, stage 2 (mild) (principal)
CPT/HCPCS: 36415; 80048; 81001; 82043

== ENCOUNTER → 2023-05-24 | Outpatient (CLI) | payer MEDICAID, SELFPAY ==
--- OUTSIDE RECORDS SUMMARY | 2023-05-24 08:36 | XMS RPT_ITS | CCD ---
Author Name Unknown Address [address] [facility] [address] [place] [address] Organization [facility] Care Team Providers Care Art History Instructor Name Role Phone Traci Christianson Unavailable Unavailable Unknown, Referring Provider Unavailable Unav ailSusi Crocker Unavailable Unavailable Traci Christianson Unavailable Unavailable Apollo Mccarty Unavailable Unavailable Baylee Head Unavailable Unavailable Unknown, Referring Provider Unavailable Unav ailMarie Parekh Unavailable Unavailable Baylee Head Unavailable Unavailable Unavailable [facility] Admitting Unava ilable [place], [facility] Attending Unava ilable [facility] Primary Care Unava ilable Rohini YOUSSEF, Douglas Osborne Unavailable Baylee Head MD Primary Care Provider BAYLEE HEAD Primary Care Unavailable ROSENDO NERI Attending Unavailable Baylee Head MD Unavailable Baylee Head MD Primary Care Provider SHIRIN BELLO Attending Unavailable TRACI CHRISTIANSON Attending Unavailable BAYLEE HEAD Primary Care Unavaildona e Allergies Allergy Classification Reported Allergen(s) Allergy Type Date of Onset Reaction(s) Facility Penicillins (antibiotic) (2 sources) Penicillins; Translations: [Penicillins] Drug Allergy Other [facility] Work Phone: (8 sources) Penicillins; Translations: [Penicillins] drug allergy 5 Other [facility] (4 sources) Penicillins Propensity to adverse reactions to drug 5 Hives, Other [facility] Work Phone: (3 sources) carvedilol; Translations: [CARVEDILOL] Drug Allergy 9 Palpitations [facility] Medications Current Medications Medication Drug Class(es) Dates Sig (Normalized) Sig (Original) lisinopril 10 mg oral tablet (6 sources) Angiotensin Converting Enzyme Inhibitor take 1 [...] palpitations; Translations: [Palpitations] Episodic Chronic kidney disease (7 sources) Chronic kidney disease stage 2; Translations: [Chronic kidney disease, stage 2 (mild)] Onset: 4 04-08-2023 Chronic 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 (8 sources) Cognitive disorder; Translations: [Unspecified persistent mental disorders due to conditions classified elsewhere] Chronic Esophageal disorders (4 sources) Gastroesophageal reflux disease; Translations: [Esophageal reflux] Chronic Essential hypertension (8 sources) Hypertensive disorder; Translations: [Essential (primary) hypertension] Onset: 0 03-26-2011 Chronic Headache; including migraine (7 sources) Transformed migraine; Translations: [Chronic migraine with [...] disorder, unspecified] Onset: 04-13-2011 04-13-2011 Episodic Unclassified (2 sources) Onset: 04-22-2023 04-22-2023 Unclassified (1 source) Chronic migraine with aura, not intractable, without status migrainosus; Translations: [Chronic migraine with aura, not intractable, without status migrainosus] Onset: 04-08-2023 NEGATED: Highlighted row has not occurred!Residual codes; unclassified (20 sources) Disease Episodic Results Test Name Value Interpretation Reference Range Facil ity Vital Signs Date Time Vital Sign Value Performing Clinician Facility 05-10-2023 10:00-0500 Body height 165.1 cm Shelly ALVES DNP Work Phone: [facility] 05-10-2023 10:00-0500 Body mass index (BMI) [Ratio] 36.08 kg/m2 Shelly ALVES DNP Work Phone: [facility] 05-10-2023 10:00-0500 Body weight 98.34 kg Shelly ALVES DNP Work Phone: [facility] 05-10-2023 10:00-0500 Diastolic blood pressure 80 mm[Hg] Shelly ALVES DNP Work Phone: [facility] 05-10-2023 10:00-0500 Heart rate 72 /min Shelly ALVES DNP Work Phone: [facility] 05-10-2023 10:00-0500 Systolic blood pressure 136 mm[Hg] Shlely ALVES DNP Work Phone: [facility] 04-22-2023 09:59-0500 Body height 165.1 cm Traci Christianson MD Work Phone: [facility] 04-22-2023 09:59-0500 Body mass index (BMI) [Ratio] 34.45 kg/m2 Traci Christianson MD Work Phone: [facility] 04-22-2023 09:59-0500 Body temperature 98.2 [degF] Traci Christianson MD Work Phone: [facility] 04-22-2023 09:59-0500 Body weight 93.89 kg Traci Christianson MD Work Phone: [facility] 04-22-2023 09:59-0500 Diastolic blood pressure 90 mm[Hg] Traci Christianson MD Work Phone: [facility] 04-22-2023 09:59-0500 Heart rate 80 /min Traci Chrsitianson MD Work Phone: [facility] 04-22-2023 09:59-0500 Respiratory rate 20 /min Traci Christianson MD Work Phone: [facility] 04-22-2023 09:59-0500 Systolic blood pressure 130 mm[Hg] Traci Christianson MD Work Phone: [facility] 04-08-2023 10:14-0500 Body height 165.1 cm Shirin Bello DO Work Phone: [facility] 04-08-2023 10:14-0500 Body mass index (BMI) [Ratio] 35.15 kg/m2 Shirin Bello DO Work Phone: [facility] 04-08-2023 10:14-0500 Body weight 95.8 kg Shirin Bello DO Work Phone: [facility] 04-08-2023 10:14-0500 Diastolic blood pressure 84 mm[Hg] Shirin Bello DO Work Phone: [facility] 04-08-2023 10:14-0500 Heart rate 78 /min Shirin Bello DO Work Phone: [facility] 04-08-2023 10:14-0500 Systolic blood pressure 132 mm[Hg] Shirin Bello DO Work Phone: [facility] 06-15-2023 15:46-0400 Body height 165.1 cm Rosendo Neri MD Work Phone: [facility] 08-27-2022 15:46-0400 Body temperature 97.3 [degF] Rosendo Neri MD Work Phone: [facility] 08-27-2022 15:46-0400 Body weight 108.41 kg Rosendo Neri MD Work Phone: [facility] 08-27-2022 15:46-0400 Diastolic blood pressure 88 mm[Hg] Rosendo Neri MD Work Phone: [facility] 08-27-2022 15:46-0400 Heart rate 79 /min Rosendo Neri MD Work Phone: [facility] 08-27-2022 15:46-0400 SaO2% (BldA) [Mass fraction] 99 % Rosendo Neri MD Work Phone: [facility] 08-27-2022 15:46-0400 Systolic blood pressure 116 mm[Hg] Rosendo Neri MD Work Phone: [facility] 10-05-2019 16:19-0400 BMI (Body Mass Index) 42.27 kg/m2 [facility] Work Phone: 10-05-2019 16:19-0400 Body weight 115.21 kg [facility] Work Phone: 10-05-2019 16:19-0400 BSA (Body Surface Area) 2.19 m2 [facility] Work Phone: 10-05-2019 16:19-0400 Height 165.1 cm Marie Bass [facility] Work Phone: 02-22-2019 11:45-0500 BMI (Body Mass Index) 42.27 kg/m2 Traci Christianson [facility] 170 DO Work Phone: 02-22-2019 11:45-0500 Body weight 115.21 kg Traci Christianson [facility]vashi 170 DO Work Phone: 02-22-2019 11:45-0500 BP Diastolic 90 mm[Hg] Traci Christianson [facility] urvashi 170 DO Work Phone: Encounters Encounter Date Encounter Type Care Provider Facility Start: 05-10-2023 End: 05-10-2023 Office outpatient visit 10 minutes Shelly ALVES, NIURKA Work Phone: [facility] Procedures Date Procedure [...] f 2) Zoster Vaccines (1 of 2) [facility] Start: 05-08-2024 End: 05-08-2024 Patient encounter procedure 05/08/2024 10:00 AM EST Office Visit [facility] [address] [place] [address] Shelly Bello APRN-CNP, NIURKA [address] [facility] [address] [id number] [facility] Start: 05-01-2024 End: 05-10-2024 Urinalysis complete panel - Urine Urinalysis with Reflex Microscopic Lab Routine Chronic kidney disease, stage 2 (mild) Expected: 05/01/2024 (Approximate), Expires: 05/10/2024 [facility] Work Phone: Immunizations Immunization Date Immunization Notes Care Provider Fa cility 07-06-2012 tetanus toxoid, redu maricarmen diphtheria toxoid, and acellular pertussis vaccine, adsorbed Rosendo Riky MD Work Phone: [facility] Work Phone: Payers Date Payer Category Payer Medicaid [employer] [facility] [id number] 2022-Present [phone] [address] [place] [address] Medicaid [id number] 2018 Medicaid [id number] 2018 Unknown 1985 Unknown [id number] 1985 Unknown [id number] Social History Date Type Detail Facility Assertion Unknown if ever smoked [facility] 170 DO Work Phone: Start: 04-08-2023 End: 04-22-2023 No alcohol use No alcohol use [facility] Work Phone: Functional Status Date Assessment Result Facility NEGATED: Highlighted row Functional performance Functional status health issues are not documented Disease [facility] 170 DO Work Phone: Mental Status Date Assessment Result Facility NEGATED: Highlighted row Cognitive function [Interpretation] Cognitive status health issues are not documented Disease ZG[facility]zzote 170 DO Work Phone: Clinical Notes 08-27-2022 to 05-10-2023 Assessment & Plan Note - JOSELYN Brito, NIURKA - 05/10/2023 10:42 AM ESTAssessment & Plan Note - JOSELYN Brito, NIURKA - 05/10/2023 10:42 AM ESTPatient Instructions Note Date & Type Note Facility 05-10-2023 Evaluation + Plan note Associated Problem(s): Chronic kidney disease, stage 2 (mild) Renal function is stable with creatinine of 0.83 and GFR of 83, discussed results of her renal ultrasound, did tell her she could just routinely follow with her family practice doctor however she would like to see us yearly, will see on a yearly basis, needs good blood pressure control, no longer taking NSAIDs, repeat labs in 1 year [facility] Work Phone: 05-10-2023 Miscellaneous Notes Associated Problem(s): Chronic kidney disease, stage 2 (mild) Renal function is stable with creatinine of 0.83 and GFR of 83, discussed results of her renal ultrasound, did tell her she could just routinely follow with her family practice doctor however she would like to see us yearly, will see on a yearly basis, needs good blood pressure control, no longer taking NSAIDs, repeat labs in 1 year Associated Problem(s): HTN (hypertension) Blood pressure is currently well-controlled on lisinopril 10 mg daily documented in this encounter [facility] Work Phone: 05-10-2023 Evaluation + Plan note Associated Problem(s): HTN (hypertension) Blood pressure is currently well-controlled on lisinopril 10 mg daily [facility] Work Phone: 05-10-2023 History of Presen t illness Narrative Subjective Patient ID: Gaviota Hou is a 37 y.o. female who presents for Follow-up (1 month ck/Review Labs & Renal US). Patient being seen in follow-up for chronic kidney disease stage II Labs reviewed Glucose 107 BUN 20 with creatinine of 0.83, GFR 82 Sodium 136, potassium 4.7, chloride 105, bicarb 25 Urinalysis essentially normal Renal ultrasound with right kidney normal in size, no hydronephrosis or renal calculi Left kidney normal in size with no calculi or hydronephrosis Is doing fairly well Is no longer using NSAIDs Is voiding without difficulties No edema Blood pressure is well-controlled Review of Systems Constitutional: Negative. Respiratory: Negative. Cardiovascular: Negative. Gastrointestinal: Negative. Endocrine: Negative. Genitourinary: Negative. Musculoskeletal: Negative. Skin: Negative. Neurological: Negative. Psychiatric/Behavioral: Negative. Objective Physical Exam Vitals reviewed. Constitutional: Appearance: Normal appearance. HENT: Head: Normocephalic. Cardiovascular: Rate and Rhythm: Normal rate and regular rhythm. Pulmonary: Effort: Pulmonary effort is normal. Breath sounds: Normal breath sounds. Abdominal: Palpations: Abdomen is soft. Musculoskeletal: General: Normal range of motion. Skin: General: Skin is warm and dry. Neurological: Mental Status: She is alert and oriented to person, place, and time. Psychiatric: Mood and Affect: Mood normal. Behavior: Behavior normal. Assessment/Plan Problem List Items Addressed This Visit ICD-10-CM HTN (hypertension) - Primary I10 Blood pressure is currently well-controlled on lisinopril 10 mg daily Chronic kidney disease, stage 2 (mild) N18.2 Renal function is stable with creatinine of 0.83 and GFR of 83, discussed results of her renal ultrasound, did tell her she could just routinely follow with her family practice doctor however she would like to see us yearly, will see on a yearly basis, needs good blood pressure control, no longer taking NSAIDs, repeat labs in 1 year Relevant Orders Basic metabolic panel Urinalysis with Reflex Microscopic Albumin , Urine Random JOSELYN Brito DNP 05/10/23 10:09 AM documented in this encounter [facility] Work Phone: 04-22-2023 History of Presen t illness Narrative Prescription refills ran out. Last [...] tested for food and environmental allergy with [employer]. Dr Dio Mccray. 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 Sees PCP tomorrow for all around not feeling great and low energy as well as update on allergies. Meds tried Propranolol- improved cognitive fog but not migraine Verapamil GERD symptoms Eletritpan- no memory of impact Tizanidine ? Topamax- does not remember if started after last visit 06-05-2020 Had been doing natural therapy with magnesium and Co q 10 documented in this encounter [facility] Work Phone: 04-22-2023 Instructions Traci Christianson MD - 04/22/2023 10:00 AM EST You are very concerned about taking medications so we can go the more natural route Keep taking the magnesium, and coq 10 as you are. B vitamins 100% can also be helpful. I have prescribed propranolol for your anxiety I sent in Amerge to treat your headaches [facility]. documented in this encounter [facility] Work Phone: 04-08-2023 History of Presen t illness Narrative Subjective She states she drinks [...] 04/08/23 10:20 AM documented in this encounter [facility] Work Phone: 08-28-2022 Note HNO ID: [id number] Author: Rosendo Neri MD Service: ? Author [...] Date Albuminuria 2017 CHF (congestive heart failure) ([facility]) Sees [place] [facility] Generalized anxiety disorder GERD (gastroesophageal reflux disease) Hiatal hernia Hypertension Hypothyroidism Impaired fasting blood sugar 2017 PIH ( induced hypertension) Stented coronary artery 2018 Sees [place] [facility] OPERATIONS: PAST SURGICAL HISTORY Procedure [...] (FLONASE) 50 mcg/actuation nasal spray Use 1 Ringoes in each nostril daily at bedtime. (Patient not taking: Reported on 08/27/2022) 18.2 mL 0 hydroCHLOROthiazide 12.5 mg capsule Take 12.5 mg by mouth once daily. (Patient not taking: No sig reported) Nqckpbj-Tjyimnyrgdvpd-Tktbdjjq (MIGRAINE RELIEF) 250-250-65 mg per tablet Take [...] and reviewed by me Nursing Notes: Rosy Gonzales LPN 08/27/2022 3:55 [...] cough, denies pulmona (more content not included)... [facility] 08-28-2022 History of Presen t illness Narrative HISTORY AND PHYSICAL Gaviota Nam Ameya 1985 [...] Date Albuminuria 2016 CHF (congestive heart failure) ([facility]) Sees [place] [facility] Generalized anxiety disorder GERD (gastroesophageal reflux disease) Hiatal hernia Hypertension Hypothyroidism Impaired fasting blood sugar 2016 PIH ( induced hypertension) Stented coronary artery 2017 Sees [place] [facility] OPERATIONS: PAST SURGICAL HISTORY Procedure [...] (FLONASE) 50 mcg/actuation nasal spray Use 1 Ringoes in each nostril daily at bedtime. (Patient not taking: Reported on 08/27/2022) 18.2 mL 0 hydroCHLOROthiazide 12.5 mg capsule Take 12.5 mg by mouth once daily. (Patient not taking: No sig reported) Rwrofla-Cgjwasfquvavu-Kqgjywah (MIGRAINE RELIEF) 250-250-65 mg per tablet Take [...] entered by the nurse and reviewed by ca Nursing Notes: Rosy Gonzales LPN 08/27/2022 3:55 [...] Rosendo Neri MD documented in this encounter [facility] 08-27-2022 Nurse Note REVIEW OF SYSTEMS: General: [...] Rosy Gonzales LPN documented in this encounter [facility] Diagnosis Chronic kidney disease, stage 2 (mild)- Primary Primary hypertension Unspecified essential hypertension Chronic migraine with aura without status migrainosus, not intractable documented in this encounter [facility] Work Phone: Evaluation note* Diagnosis Cognitive change- Primary Anxiety Anxiety state, unspecified Chronic migraine without aura, intractable, with status migrainosus documented in this encounter [facility] Work Phone: Evaluation note* Diagnosis Primary hypertension- Primary Unspecified essential hypertension Chronic kidney disease, stage 2 (mild) documented in this encounter [facility] Work Phone: Reason for referral (narrative)* Consultation (Routine) - Authorized Specialty Diagnoses / Procedures Referred By Freddy cisneros Referred To Contact Nephrology Diagnoses Chronic kidney disease, stage 2 (mild) Procedures Follow Up In Nephrology Shirin Bello, [address] [place] [address] [address] [place] [address] Referral ID Status Reason Start Date Expiration Date V isits Requested Visits Authorized [id number] Authorized 04/08/2023 04/07/2024 1 1 * Imaging (Routine) - Authorized Specialty Diagnoses / Procedures Referred By Contac t Referred To Contact Radiology Diagnoses Chronic kidney disease, stage 2 (mild) Procedures US renal complete Shirin Bello DO [address] [place] [address] Referral ID Status Reason Start Date Expiration Date Visits Requested Visits Authorized [id number] Authorized Perform Procedure 04/08/2023 04/07/2024 1 1 [facility] Work Phone: Family History Grandmother Name Dates [...] Procedures EEG Traci Christianson MD [address] [place] [id number] Referral ID Status Reason Start Date Expiration Date V isits Requested Visits Authorized [id number] Pending Review 04/22/2023 04/21/2024 1 1 Additional Source Comments INFORMATION SOURCE (unrecogn ized section and content) DATE CREATED AUTHOR AUTHOR'S ORGANIZ ATION 06/06/2020 [employer] DATE CREATED AUTHOR AUTHOR'S ORGANIZ ATION 07/13/2020 [facility] DATE CREATED AUTHOR AUTHOR'S ORGANIZ ATION 11/10/2020 [facility] DATE CREATED AUTHOR AUTHOR'S ORGANIZ ATION 01/19/2023 [facility] DATE CREATED AUTHOR AUTHOR'S ORGANIZ ATION 04/26/2023 [facility] Ambulatory Source Comments (unrecognize d section and content) In the event this informatio n is protected by the Federal Confidentiality of Alcohol and Drug Abuse Patient Records regulations: The Federal rules restrict any use of the information to criminally investigate or prosecute any alcohol or drug abuse patient.[facility] Reason for Visit (unrecogniz ed section and content) Reason Comments Consult New ptReview labsFam cristian hx Kidney Disease Reason Comments Migraine Re establish care Reason Comments Follow-up 1 month ckReview Lab s & Renal US Care Teams (unrecognized sec tion and content) Art History Instructor Relationship Specialty Start Date End Date Baylee Head MD [address] [place] [phone] [facility]/13/22 Art History Instructor Relationship Specialty Start Date End Date Baylee Head MD [address] [place] [phone] [facility] 11/13/22 Baylee Head MD [address] [place] [address] PCP - General Family Medicine 04/22/23 Art History Instructor Relationship Specialty Start Date End Date Baylee Head MD [address] [place] [address] PCP - [facility] PCP 11/13/22 Baylee Head MD [address] [place] [phone] PCP - General Family Medicine 04/22/23 FOR [...] BE BASED ON THE PRIMARY CLINICAL RECORDS. [facility]. provides no warranty or guarantee of the accuracy or completeness of information in this document.
== END | disposition home or self-care (01) ==
PROVIDERS: PCP Family Medicine
DX: R41.89 Other symptoms and signs involving cognitive functions and awareness (principal)
CPT/HCPCS: 95819

== ENCOUNTER → 2023-08-10 | Outpatient (CLI) | payer MEDICAID, SELFPAY ==
[2023-08-10 12:40] LABS: Absolute Lymphocyte Count 2.26 X10^3/uL (0.83-4.51); Absolute Neutrophil Count 4.3 X10^3/uL (2.0-7.7); Basophil# 0.03 X10^3/uL; Basophil% 0.4 % (0-1); Eosinophil# 0.15 X10^3/uL; Eosinophils% 2.1 % (0-5); Hematocrit 41.9 % (37-47); Hemoglobin 13.2 g/dL (12.0-15.0); Lymphocyte # 2.26 X10^3/ul (0.83-4.51); Lymphocyte % 31.7 % (19-41); Mean Corp Hgb Conc 31.5 g/dL (32-36); Mean Corpuscular Hgb 27.3 pg (27.0-32.0); Mean Corpuscular Volume 86.6 fL (81-99); Mean Platelet Vol. 9.5 fl (6.2-12.0); Monocyte# 0.35 X10^3/uL; Monocyte% 4.9 % (0-10); NRBC Flagged by Analyzer 0 % (0-5); Neutrophil # 4.33 X10^3/uL (2.7-7.7); Neutrophil % 60.6 % (47-70); Platelet Count 347 K/mm3 (150-450); RBC Distribution Width CV 13.4 % (11.6-14.6); RBC Distribution Width SD 42.5 fl (35.1-43.9); Red Blood Count 4.84 M/mm3 (4.2-5.4); White Blood Count 7.1 K/mm3 (4.4-11.0)
[2023-08-10 12:51] LABS: ALB/GLOB Ratio 0.8 RATIO (0.9-2.4); AST(SGOT) 11 U/L (15-37); Alanine Aminotransfer ALT/SGPT 19 U/L (13-56); Albumin, Serum 3.4 g/dL (3.2-5.0); Alkaline Phosphatase 60 U/L (45-117); Anion Gap 9 (5-15); BUN 18 mg/dL (7-18); BUN/Creat Ratio 20.8 RATIO (10-20); Chloride 104 mmol/L (98-107); Cholesterol 176 mg/dL (200); Creatinine, Serum 0.86 mg/dL (0.55-1.02); EST Glomerular Filtration Rate 77 mL/min (>60); Est Glom Filt Rate - Afr Amer 94 mL/min (>60); Globulin 4.3 g/dL (2.2-4.2); Glucose 95 mg/dL (74-106); High Density Lipoprotein 56 mg/dL; Potassium 4.3 mmol/L (3.5-5.1); Protein, Total 7.7 g/dL (6.4-8.2); Sodium Level 138 mmol/L (136-145); Thyroid Stim Hormone (TSH) 1.44 uIU/mL (0.358-3.74); Triglycerides 139 mg/dL; Very Low Density Lipoprotein 28 mg/dL (5-40)
[2023-08-10 13:10] LABS: Hemoglobin A1c 5.3 % (3.8-5.6)
== END | disposition home or self-care (01) ==
PROVIDERS: PCP Internal Medicine; Referring Provider Internal Medicine; Visit Provider Internal Medicine
DX: R53.83 Other fatigue (principal); R73.9 Hyperglycemia, unspecified; Z13.220 Encounter for screening for lipoid disorders
CPT/HCPCS: 36415; 80053; 80061; 83036; 84443; 85025

== ENCOUNTER → 2023-10-01 | Outpatient (CLI) | payer MEDICAID, SELFPAY ==
[2023-10-01 12:24] LABS: Absolute Lymphocyte Count 2.09 X10^3/uL (0.83-4.51); Absolute Neutrophil Count 4.5 X10^3/uL (2.0-7.7); Basophil# 0.03 X10^3/uL; Basophil% 0.4 % (0-1); Eosinophil# 0.13 X10^3/uL; Eosinophils% 1.8 % (0-5); Hematocrit 39.8 % (37-47); Lymphocyte # 2.09 X10^3/ul (0.83-4.51); Lymphocyte % 29.5 % (19-41); Mean Corp Hgb Conc 32.7 g/dL (32-36); Mean Corpuscular Hgb 27.6 pg (27.0-32.0); Mean Corpuscular Volume 84.5 fL (81-99); Mean Platelet Vol. 9.6 fl (6.2-12.0); Monocyte# 0.36 X10^3/uL; Monocyte% 5.1 % (0-10); NRBC Flagged by Analyzer 0 % (0-5); Neutrophil # 4.45 X10^3/uL (2.7-7.7); Neutrophil % 62.9 % (47-70); Platelet Count 349 K/mm3 (150-450); RBC Distribution Width CV 13.9 % (11.6-14.6); Red Blood Count 4.71 M/mm3 (4.2-5.4); White Blood Count 7.1 K/mm3 (4.4-11.0)
[2023-10-01 12:29] LABS: Vitamin B12 1089 pg/mL (211-911)
[2023-10-01 12:48] LABS: ALB/GLOB Ratio 0.8 RATIO (0.9-2.4); AST(SGOT) 14 U/L (15-37); Alanine Aminotransfer ALT/SGPT 17 U/L (13-56); Albumin, Serum 3.4 g/dL (3.2-5.0); Alkaline Phosphatase 61 U/L (45-117); Anion Gap 8 (5-15); BUN 19 mg/dL (7-18); BUN/Creat Ratio 22.5 RATIO (10-20); Calcium,Total 8.7 mg/dL (8.5-10.1); Chloride 105 mmol/L (98-107); Cholesterol 152 mg/dL (200); Creatinine, Serum 0.84 mg/dL (0.55-1.02); EST Glomerular Filtration Rate 79 mL/min (>60); Est Glom Filt Rate - Afr Amer 96 mL/min (>60); Globulin 4.2 g/dL (2.2-4.2); Glucose 96 mg/dL (74-106); High Density Lipoprotein 51 mg/dL; Potassium 4.1 mmol/L (3.5-5.1); Protein, Total 7.6 g/dL (6.4-8.2); Sodium Level 137 mmol/L (136-145); Thyroid Stim Hormone (TSH) 1.78 uIU/mL (0.358-3.74); Triglycerides 96 mg/dL; Very Low Density Lipoprotein 19 mg/dL (5-40)
== END | disposition home or self-care (01) ==
LOC: BIMLAB 10:51
PROVIDERS: PCP Internal Medicine
DX: F41.9 Anxiety disorder, unspecified (principal); I10 Essential (primary) hypertension
CPT/HCPCS: 36415; 80053; 80061; 82607; 84443; 85025

== ENCOUNTER → 2023-10-07 | Outpatient (CLI) | payer MEDICAID, SELFPAY ==
[2023-10-07 12:26] LABS: Magnesium 2.2 mg/dL (1.6-2.6)
[2023-10-07 12:46] LABS: Vitamin D,25 Hydroxy 47.1 ng/mL
[2023-10-11 17:07] LABS: Immunoglobulin E 104 IU/mL (6-495)
== END | disposition home or self-care (01) ==
LOC: BIMLAB 09:38
PROVIDERS: PCP Internal Medicine
DX: J30.2 Other seasonal allergic rhinitis (principal)
CPT/HCPCS: 36415; 82306; 82785; 83735

== ENCOUNTER → 2024-08-18 | Outpatient (CLI) | payer MEDICAID, SELFPAY ==
[2024-08-18 15:36] LABS: Anion Gap 11 (5-15); BUN 20 mg/dL (4-19); BUN/Creat Ratio 25.8 RATIO (10-20); Calcium,Total 9.3 mg/dL (7.6-11.0); Carbon Dioxide 21.8 mmol/L (21.0-32.0); Chloride 104 mmol/L (98-108); Creatinine, Serum 0.77 mg/dL (0.70-1.20); EST Glomerular Filtration Rate 99 (>60); Glucose 97 mg/dL (70-99); Potassium 4.3 mmol/L (3.3-5.1); Sodium Level 137 mmol/L (133-145)
== END | disposition home or self-care (01) ==
LOC: BIMLAB 12:25
PROVIDERS: PCP Internal Medicine
DX: R80.9 Proteinuria, unspecified (principal)
CPT/HCPCS: 36415; 80048

== ENCOUNTER → 2024-08-23 | Outpatient (CLI) | payer MEDICAID, SELFPAY ==
[2024-08-23 13:15] LABS: Bacteria 0 SEEN /hpf (None Seen); Mucous, Urine 0 SEEN /hpf (<or=2+); White Blood Cells 0 SEEN /hpf (0-5)
[2024-08-23 16:04] LABS: Color, Urine Yellow (Yellow); Glucose, Dipstick Normal (Normal); Ketone-Dipstick Negative (Negative); Leukocyte Esterase-Dipstick Negative /ul (Negative); Nitrite-Dipstick Negative (Negative); Occult Blood-Urine Negative /ul (Negative); Protein-Dipstick 15 mg/dl (Negative); Urine Bilirubin Dipstick Negative (Negative); Urine Clarity Clear (Clear); Urine Urobilinogen Normal (Normal)
[2024-08-23 16:43] LABS: Microalbumin,Random Urine 12.7 mg/L (NO RANGE EST.); Microalbumin:Creatinine Ratio 137.7 mg/g CRE
[2024-08-23 17:17] LABS: Red Blood Cells-Urine 0-5 SEEN /hpf (0-5); Squamous Epithelial Cells - UA 5-10 SEEN /hpf (5-10)
== END | disposition home or self-care (01) ==
LOC: LABSPEC 13:12
PROVIDERS: PCP Internal Medicine
DX: R80.9 Proteinuria, unspecified (principal); I10 Essential (primary) hypertension
CPT/HCPCS: 81001; 82043; 82570